=== PATIENT | female | born 1995 | race Caucasian/White ===

== ENCOUNTER 2019-08-30 21:39 | Observation (INO) | payer MEDICAID, SELFPAY ==
--- NOTE | 2019-08-30 20:45 | PC.NURSE ---
Pt transported to OB via wheelchair, report called to OB department.
[2019-08-30 21:08] VITALS: BP 107/69; PULSE 88
[2019-08-30 21:15] VITALS: BP 98/68; PULSE 95
[2019-08-30 21:37] LABS: Basophils Percent Auto 0.2 % (0.2-1.2); Eosinophils Absolute Auto 0.1 K/mm3 (0-0.3); Eosinophils Percent Auto 1.5 % (0-4.4); Hemoglobin 10.6 g/dL (12.0-15.0); Immature Granulocyte Absolute 0.04 K/mm3 (0.00-0.031); Immature Granulocyte Percent A 0.4 % (0-0.5); Lymphocytes Percent Auto 12.7 % (18.3-44.2); Mean Corpuscular HGB Conc 33.1 g/dl (32-36); Mean Corpuscular Hemoglobin 29.5 pg (26-34); Mean Corpuscular Volume 89.1 fl (80-100); Monocytes Absolute Auto 0.5 K/mm3 (0.1-0.6); Monocytes Percent Auto 5.2 % (2.6-8.5); Neutrophils Absolute Auto 7.6 K/mm3 (1.3-6.7); Platelet Count Result 164 k/mm3 (150-375); Red Blood Count 3.59 M/mm3 (4.2-5.4); Red Cell Distribution Width 14.1 % (11.5-14.5); White Blood Count 9.5 K/mm3 (4.5-10.0)
--- NOTE | 2019-08-30 21:41 | OBADM ---
This patient, Anette Camargo, admitted to the OB room [facility] for observation. Patient/family oriented to hospital policies and general routines including ID bracelet, bed and alarms, visiting hours, pain management, procedures, bathroom and other care routines, personal items, smoking policy, room service/diet, and visiting hours. Patient/Family are encouraged to report perceived risks to care and to ask questions if they do not understand what they are told or what they should do.
[2019-08-30 22:28] LABS: HIV 1/2 Ab P24 Ag Result Negative (Negative)
[2019-08-30 22:49] LABS: Hepatitis B Surface Antigen Negative (Negative); Rubella IgG Antibody 26.8 IU/ML
[2019-08-31 09:48] LABS: Rapid Plasma Reagin Non-Reactive (NonReactive)
--- NOTE | 2019-09-01 13:28 | P.PNOB_ITS ---
OB - Triage/Final Diagnosis Visit Information Reason for evaluation: threatened labor Evaluation Laboratory results: Laboratory Tests 08/30/19 08/30/19 08/30/19 21:29 21:29 21:29 WBC 9.5 RBC 3.59 L Hgb 10.6 L Hct 32.0 L MCV 89.1 MCH 29.5 MCHC 33.1 RDW 14.1 Plt Count 164 MPV 11.0 H Immature Gran % (Auto) 0.4 Neut % (Auto) 80.0 H Lymph % (Auto) 12.7 L [place] % (Auto) 5.2 Eos % (Auto) 1.5 Baso % (Auto) 0.2 Lymph # (Auto) 1.20 [place] # (Auto) 0.5 Eos # (Auto) 0.1 Baso # (Auto) 0.0 Abs Immat Gran (auto) 0.04 H Absolute Neuts (auto) 7.6 H Absolute Nucleated RBC 0.0 Nucleated RBC % 0.0 RPR Non-reactive Hep Bs Antigen Negative HIV 1&2 Ab/P24 Ag 4thGn Negative Rubella IgG Antibody 26.8 Blood Type Antibody Screen 08/30/19 21:29 WBC RBC Hgb Hct MCV MCH MCHC RDW Plt Count MPV Immature Gran % (Auto) Neut % (Auto) Lymph % (Auto) [place] % (Auto) Eos % (Auto) Baso % (Auto) Lymph # (Auto) [place] # (Auto) Eos # (Auto) Baso # (Auto) Abs Immat Gran (auto) Absolute Neuts (auto) Absolute Nucleated RBC Nucleated RBC % RPR Hep Bs Antigen HIV 1&2 Ab/P24 Ag 4thGn Rubella IgG Antibody Blood Type O Positive Antibody Screen Negative
== END 2019-08-30 21:53 | disposition home or self-care (01) ==
PROVIDERS: Admitting Provider Obstetrics & Gynecology; Visit Provider Obstetrics & Gynecology
DX: O47.02 False labor before 37 completed weeks of gestation, second trimester (principal); Z3A.25 25 weeks gestation of pregnancy
CPT/HCPCS: 36415; 85025; 86592; 86703; 86762; 86850; 86900; 86901; 87340; 99199; G0432

== ENCOUNTER 2020-02-08 12:27 | Emergency (ER) | payer BC, SELFPAY ==
[2020-02-08 12:29] VITALS: BP 101/84; PULSE 88; RESP 20; TEMP 36.7; O2SAT 100
--- NOTE | 2020-02-08 13:16 | ED.ALLEREA ---
HPI - Allergic Reaction General Chief complaint: Allergic Reaction Stated complaint: allergic reaction Time Seen by Provider: 02/08/20 12:36 Source: patient and family History of Present Illness HPI narrative: Woke up this morning with itching rash on the left face, and almost all over the body. Was burning sensation of the feet bilaterally. Patient denies difficulty swallowing or breathing. MD complaint: allergic reaction and hives Known history of allergy to: Yes Related Data Allergies Allergy/AdvReac Type Severity Reaction Status Date / Time Penicillins Allergy Severe Anaphylactic Verified 05/26/19 21:38 Shock Review of Systems Review of Systems: Narrative: CONSTITUTIONAL: Denies fever, chills, or sweats. EYES: Denies visual changes, redness, or discharge. ENT: Denies rhinorrhea, congestion, sore throat, or otalgia. CARDIOVASCULAR: Denies chest pain, palpitations, or edema. RESPIRATORY: Denies cough or dyspnea. GASTROINTESTINAL: Denies abdominal pain, nausea, vomiting, or diarrhea. GENITOURINARY: Denies dysuria or hematuria. SKIN: Denies rash or itching. MUSCULOSKELETAL: Denies back pain, joint pain, or myalgia. NEUROLOGIC: Denies headache, numbness, or weakness. PSYCHIATRIC: Denies anxiety or depression. [facility] Past Medical History Medical History Anemia UTI (urinary tract infection) Wrist fracture Social History Social History Smoking status: Never smoker Exam Narrative: Exam Narrative: General appearance: Well-developed, well-nourished Skin: Normal color, left lower face at the jaw area, redness, swelling and diffuse tenderness. Maculopapular rash all over the body. Head: Normocephalic, nontraumatic Eyes: Clear conjunctiva ENT: Oropharynx normal, ears normal, nose normal Neck: Supple, nontender Chest and respiratory: Airway patent, no respiratory distress, no accessory muscle use Heart: Regular rate/rhythm Abdomen: Soft, nontender, no organomegaly, quiet bowel sounds Vascular: Normal peripheral pulses, normal capillary refill. Musculoskeletal: Normal range of motion, nontender back Neurologic: Alert and oriented ?3, [employer] is normal as tested, no gross motor deficit Course Course Emergency Course: Improving Vital Signs Vital signs: Vital Signs Temperature 36.7 C 02/08/20 12:29 Pulse Rate 88 02/08/20 12:29 Respiratory Rate 20 02/08/20 12:29 Blood Pressure 101/84 02/08/20 12:29 Pulse Oximetry 100 02/08/20 12:29 Temperature 36.7 C 02/08/20 12:29 Pulse Rate 88 02/08/20 12:29 Respiratory Rate 20 02/08/20 12:29 Blood Pressure 101/84 02/08/20 12:29 Pulse Oximetry 100 02/08/20 12:29 MDM - Allergic Reaction MDM Narrative Medical decision making narrative: Insect bite is my concern. Epinephrine, Benadryl, Solu-Medrol ordered. Further plan to follow The localized swelling, redness and tenderness at the left lower face high likely secondary to insect bite. Possible infection Differential Diagnosis Differential diagnosis: Likely allergic reaction Critical Care Time Critical Care Time Critical Care Time: No Discharge Plan Discharge Clinical Impression: Allergic reaction Qualifiers: Encounter type: initial encounter Qualified Code(s): T78.40XA - Allergy, unspecified, initial encounter Patient Disposition: Home, Self-Care Condition: Improved Instructions: General Allergic Reaction (ED) Additional Instructions: Return if symptoms are worsening , call your family physician for appointment, take Tylenol as as needed for aches and pain, continue home medications. Prescripti
[2020-02-08] MEDS: EPINEPHrine HCL INJ 1 MG/ML AMPUL 0.3 MG IM (13:27)
[2020-02-08] MEDS: methylPREDNISolone SOD SUCC 125 MG VIAL (13:28)
[2020-02-08] MEDS: diphenhydrAMINE HCl INJ 50 MG/ML VIAL IV PUSH (13:28)
[2020-02-08 14:16] VITALS: BP 132/70; PULSE 78; RESP 20; O2SAT 99
== END 2020-02-08 14:18 | disposition home or self-care (01) ==
PROVIDERS: Emergency Provider Emergency Medicine
DX: T78.40XA Allergy, unspecified, initial encounter (principal); Z87.440 Personal history of urinary (tract) infections
CPT/HCPCS: 96372; 96374; 99284; J0171; J1200; J2930

== ENCOUNTER 2021-06-02 01:19 | Emergency (ER) | payer BC, SELFPAY ==
--- NOTE | ~2021-06-02 | CT_ITS ---
EXAMINATION: CT abdomen pelvis w con EXAM DATE: 06/02/2021 03:01 INDICATION: R flank and abd pain reproducible. TECHNIQUE: Spiral CT of the abdomen and pelvis was performed following intravenous injection of 100 m L Omnipaque 350. Axial, coronal and sagittal images of the abdomen and pelvis were reviewed. The do se-length product (DLP) for this examination was 800.44 mGy-cm. The exposure was tailored according to patient size (auto mA exposure control), and iterative reconstruction (ASIR) was used as additiona l dose reduction technique. Comparison is made to prior examination from 06/02/2021. FINDINGS: The liver, spleen, adrenal glands and pancreas are unremarkable. Gallbladder is unremarkab le. No biliary obstruction. Portal and splenic veins are patent. Kidneys enhance symmetrically. T here is no hydronephrosis. The uterus is anteverted and morphologically normal. The bladder is un remarkable. There is no retroperitoneal or pelvic lymphadenopathy. The appendix is normal. The stomach and small bowel are unremarkable. There is expected amount of c olonic stool. No free intraperitoneal gas. The heart is normal in size. There are no pericardial or pleural effusions. The lung bases are unremarkable. There are no osteoblastic or osteolytic les ions identified. Mild chronic bilateral sacroiliitis, symmetric sclerosis along the iliac crests at t he sacroiliac joint. IMPRESSION: 1. No acute intra-abdominal findings. Reviewed, dictated and finalized at location A. [employer]
[2021-06-02 01:20] VITALS: BP 123/81; PULSE 81; RESP 18; TEMP 36.5; O2SAT 100
--- NOTE | 2021-06-02 01:53 | ED.ABDPAIN ---
HPI - Abdominal Pain General Chief Complaint: Abdominal Pain Stated Complaint: abd pain Time Seen by Provider: 06/02/21 01:42 Source: patient History of Present Illness HPI narrative: Patient presents with right-sided flank pain. Reports symptoms present for the past several weeks however today she noted right-sided abdominal pain and her pain was more severe so she came to the ER for evaluation. Reports association with nausea. Pain is achy/sharp, constant but waxes and wanes in intensity and is worsened with any sort of body movement her pain does radiate from her back to her abdomen. She denies any urinary symptoms vaginal discharge or fevers. Reports a history of ureteral stones requiring procedural intervention but is unsure if today's symptoms are similar to her prior stones. Related Data Allergies Allergy/AdvReac Type Severity Reaction Status Date / Time Penicillins Allergy Severe Anaphylactic Verified 05/26/19 21:38 Shock Review of Systems Review of Systems: CONSTITUTIONAL: Denies fever, chills, or sweats. EYES: Denies visual changes, redness, or discharge. ENT: Denies rhinorrhea, congestion, sore throat, or otalgia. CARDIOVASCULAR: Denies chest pain, palpitations, or edema. RESPIRATORY: Denies cough or dyspnea. GASTROINTESTINAL: Denies vomiting, or diarrhea. GENITOURINARY: Denies dysuria or hematuria. SKIN: Denies rash or itching. MUSCULOSKELETAL: Denies joint pain, or myalgia. NEUROLOGIC: Denies headache, numbness, dizziness, or weakness. PSYCHIATRIC: Denies anxiety or depression. All systems reviewed & are unremarkable except as noted in HPI and below PMFSH Past Medical History Medical History (Updated 06/02/21 @ 03:54 by Titi Mendez MD) Anemia UTI (urinary tract infection) Wrist fracture Social History Social History Smoking status: Never smoker Exam Narrative: GENERAL: Well-appearing, well-nourished, and in no acute distress. HEAD: Normocephalic, atraumatic. EYES: PERRLA and EOMI. ENT: Nares clear, no rhinorrhea or epistaxis. Mucous membranes moist. NECK: Supple. No masses. No JVD CHEST: Clear to auscultation. No respiratory distress. No wheezes rales or rhonchi HEART: Regular rate and rhythm. No murmur heard. Normal peripheral pulses. ABDOMEN: Moderate tenderness with palpation on the right abdomen negative Collier's soft, nondistended, normal active bowel sounds. EXTREMITIES: Normal range of motion. No edema. SKIN: Warm, dry, no rash. NEURO: No focal deficits. Alert and oriented x3. PSYCH: Normal mood and affect. Course Reevaluation(s) Reevaluation #1: Patient is resting comfortably results and plan reviewed with patient. Patient is comfortable with outpatient plan. Date: 06/02/21 Time: 03:53 Vital Signs Vital signs: Vital Signs Temperature 36.5 C 06/02/21 01:20 Pulse Rate 81 06/02/21 01:20 Respiratory Rate 18 06/02/21 01:20 Blood Pressure 123/81 06/02/21 01:20 Pulse Oximetry 100 06/02/21 01:20 Temperature 36.5 C 06/02/21 01:20 Pulse Rate 74 06/02/21 04:18 Respiratory Rate 18 06/02/21 04:18 Blood Pressure 102/67 06/02/21 04:18 Pulse Oximetry 99 06/02/21 04:18 MDM - Abdominal Pain MDM Narrative Medical decision making narrative: H&P as above, vss, pt looks clinically well, exam minor right-sided abdominal pain, labs clinically unremarkable, img unremarkable for acute process, additional labs/img considered, symptomatic relief available as needed, on reevaluation pt continues to looks clinically well. Symptoms remain of unclear etiology, dns ureteral stone, cholecystitis, pancreatitis, perforation, bowel obstruction appendicitis, pyelonephritis. plan to tx/monitor as op w/ pcm f/u findings/plan discussed with pt, pt agree/comfortable with plan, return precautions given Lab Data Result diagrams: 06/02/21 01:58 06/02/21 01:58 Labs: Lab Results
[2021-06-02] MEDS: ONDANSETRON INJ 4 MG/2 ML VIAL IV PUSH (02:16)
[2021-06-02] MEDS: MORPHINE SULFATE (*CRX) 4 MG/ML INJ IV PUSH (02:16)
[2021-06-02] MEDS: SODIUM CHLORIDE 0.9% IV 1,000 ML 999 ML IV CONT (02:16)
[2021-06-02 02:18] LABS: Basophils Percent Auto 0.3 % (0.2-1.2); Eosinophils Absolute Auto 0.3 K/mm3 (0-0.3); Eosinophils Percent Auto 2.7 % (0-4.4); Hematocrit 38.2 % (37.0-47.0); Hemoglobin 12.8 g/dL (12.0-15.0); Immature Granulocyte Absolute 0.04 K/mm3 (0.00-0.031); Immature Granulocyte Percent A 0.4 % (0-0.5); Lymphocytes Absolute Auto 3.93 K/mm3 (0.9-3.2); Lymphocytes Percent Auto 37.9 % (18.3-44.2); Mean Corpuscular HGB Conc 33.5 g/dl (32-36); Mean Corpuscular Hemoglobin 30.3 pg (26-34); Mean Corpuscular Volume 90.5 fl (80-100); Mean Platelet Volume 10.7 fl (7.4-10.4); Monocytes Absolute Auto 0.6 K/mm3 (0.1-0.6); Monocytes Percent Auto 6.2 % (2.6-8.5); Neutrophils Absolute Auto 5.4 K/mm3 (1.3-6.7); Neutrophils Percent Auto 52.5 % (45.5-73.1); Platelet Count Result 208 k/mm3 (150-375); Red Blood Count 4.22 M/mm3 (4.2-5.4); Red Cell Distribution Width 12.5 % (11.5-14.5); White Blood Count 10.4 K/mm3 (4.5-10.0)
[2021-06-02 02:30] LABS: Alanine Aminotransferase 15 U/L (4-35); Albumin Level 4.4 g/dL (3.5-5.1); Alkaline Phosphatase 90 U/L (38-126); Anion Gap 7 mmol/L (8-16); Aspartate Amino Transferase 22 U/L (14-36); Bilirubin,Total 0.3 mg/dL (0.2-1.3); Blood Urea Nitrogen 16 mg/dL (7-17); Calcium 9.4 mg/dL (8.4-10.2); Carbon Dioxide 26 mmol/L (22-30); Chloride 104 mmol/L (98-107); Estimated CRCL calculation 113 ml/min; Estimated Glomerular Filt Rate > 60; Glucose 102 mg/dL (65-110); Lipase 61 U/L (23-300); Potassium 3.8 mmol/L (3.4-5.0); Sodium 137 mmol/L (137-145)
[2021-06-02 02:34] LABS: Add Urine Microscopic? YES; Appearance Urine Cloudy (Clear); Bacteria Urine Trace /hpf; Bilirubin Urine Negative (Negative); Blood Urine Negative (Negative); Color Urine Yellow (Yellow); Glucose Urine UA Negative (Negative); Ketones Urine Negative (Negative); Leukocyte Esterase Ur Negative LEU/UL (Negative); Mucus Urine Rare /lpf; Nitrate Urine Negative (Negative); Protein Urine Negative (Negative); RBC Urine 0-2 /hpf (0-2); Specific Grav Ur 1.025 (1.001-1.035); Squamous Epithelial Cell Urine Rare /hpf (Few); WBC Urine 0-3 /hpf
[2021-06-02 03:00] VITALS: BP 111/66; PULSE 71; RESP 18; O2SAT 100
[2021-06-02] MEDS: KETOROLAC 15 MG/ML VIAL (*BKC) IV PUSH (03:48)
[2021-06-02 04:18] VITALS: BP 102/67; PULSE 74; RESP 18; O2SAT 99
== END 2021-06-02 04:22 | disposition home or self-care (01) ==
PROVIDERS: Emergency Provider Emergency Medicine
DX: R10.11 Right upper quadrant pain (principal); Z86.2 Personal history of diseases of the blood and blood-forming organs and certain disorders involving the immune mechanism; Z87.440 Personal history of urinary (tract) infections
CPT/HCPCS: 36415; 74177; 80053; 81001; 81025; 83690; 85025; 96361; 96365; 96375; 99284; J0131; J1885; J2270; J2405; J7030; Q9967

== ENCOUNTER 2021-06-17 23:23 | Emergency (ER) | payer BC, SELFPAY ==
[2021-06-17 23:28] VITALS: BP 125/72; PULSE 86; RESP 20; TEMP 36.3; O2SAT 100
--- NOTE | 2021-06-18 02:52 | PC.NURSE ---
Went into pts room, pt very upset that no one has been in and that the Dr has not been in yet, I explained to pt how emergency room works with critical pts,. PT was very upset and was not happy with the conversation.
--- NOTE | 2021-06-18 03:46 | ED.SKABFB ---
HPI - Skin/Abscess/Foreign Bdy General Chief complaint: Skin/Abscess/Foreign Body Stated complaint: left inner thigh abscess/spider bite Time Seen by Provider: 06/18/21 03:30 Source: patient History of Present Illness HPI narrative: Patient presents with concern for insect bite. Was bit yesterday has had increasing pain and redness to the area she was concerned about infection so she came to the ER for evaluation. She reports she is seen a pustule form thought maybe is an open wound here and popped it. Scant amount of pus came out. She denies any fevers, nausea, vomiting, diarrhea Related Data Allergies Allergy/AdvReac Type Severity Reaction Status Date / Time Penicillins Allergy Severe Anaphylactic Verified 06/18/21 01:19 Shock Review of Systems Review of Systems: CONSTITUTIONAL: Denies fever, chills, or sweats. EYES: Denies visual changes, redness, or discharge. ENT: Denies rhinorrhea, congestion, sore throat, or otalgia. CARDIOVASCULAR: Denies chest pain, palpitations, or edema. RESPIRATORY: Denies cough or dyspnea. GASTROINTESTINAL: Denies abdominal pain, nausea, vomiting, or diarrhea. GENITOURINARY: Denies dysuria or hematuria. SKIN: Denies rash or itching. MUSCULOSKELETAL: Denies back pain, joint pain, or myalgia. NEUROLOGIC: Denies headache, numbness, dizziness, or weakness. PSYCHIATRIC: Denies anxiety or depression. All systems reviewed & are unremarkable except as noted in HPI and below PMFSH Past Medical History Medical History (Updated 06/18/21 @ 03:52 by Titi Mendez MD) Anemia UTI (urinary tract infection) Wrist fracture Social History Social History Smoking status: Never smoker Exam Narrative: GENERAL: Well-appearing, well-nourished, and in no acute distress. HEAD: Normocephalic, atraumatic. EYES: PERRLA and EOMI. ENT: Nares clear, no rhinorrhea or epistaxis. Mucous membranes moist. NECK: Supple. No masses. No JVD EXTREMITIES: Normal range of motion. No edema. 2 x 4 area of erythema and edema with mild tenderness to palpation no focal fluctuance no draining wounds SKIN: Warm, dry, no rash. NEURO: No focal deficits. Alert and oriented x3. PSYCH: Normal mood and affect. Course Vital Signs Vital signs: Vital Signs Temperature 36.3 C L 06/17/21 23:28 Pulse Rate 86 06/17/21 23:28 Respiratory Rate 20 06/17/21 23:28 Blood Pressure 125/72 06/17/21 23:28 Pulse Oximetry 100 06/17/21 23:28 Temperature 36.3 C L 06/17/21 23:28 Pulse Rate 86 06/17/21 23:28 Respiratory Rate 20 06/17/21 23:28 Blood Pressure 125/72 06/17/21 23:28 Pulse Oximetry 100 06/17/21 23:28 MDM - Skin/Abscess/Foreign Bdy MDM Narrative Medical decision making narrative: H&P as above, vss, pt looks clinically well, exam moderate size area of erythema and edema with mild tenderness, bedside ultrasound without focal fluid collection additional labs/img considered, symptomatic relief available as needed, on reevaluation pt continues to looks clinically well. Suspect cellulitis, dns abscess, necrotizing soft tissue infection, severe sepsis. plan to tx/monitor as op w/ pcm f/u findings/plan discussed with pt, pt agree/comfortable with plan, return precautions given Discharge Plan Discharge Clinical Impression: Cellulitis Qualifiers: Site of cellulitis: extremity Site of cellulitis of extremity: lower extremity Laterality: left Qualified Code(s): L03.116 - Cellulitis of left lower limb Patient Disposition: Home, Self-Care Condition: Improved Instructions: Antibiotic Form, Cellulitis (ED) Additional Instructions: Please return if your symptoms worsen or fail to improve. If you develop a fever, can not eat/drink anything or if you have any other concerns. Prescriptions: New sulfamethoxazole-trimethoprim [Bactrim DS] 800-160 mg tablet 1 tablet PO Q12H 5 Days Qty: 10 RF: 0 No Action clindamycin HCl 300 mg capsule
[2021-06-18] MEDS: KETOROLAC 30 MG/ML VIAL (*BKC) IM (04:13)
== END 2021-06-18 04:18 | disposition home or self-care (01) ==
PROVIDERS: Emergency Provider Emergency Medicine
DX: L03.116 Cellulitis of left lower limb (principal)
CPT/HCPCS: 96372; 99283; J1885

== ENCOUNTER 2021-07-05 12:15 | Emergency (ER) | payer BC, SELFPAY ==
[2021-07-05 12:24] VITALS: BP 106/67; PULSE 80; RESP 16; TEMP 36.4; O2SAT 100
--- NOTE | 2021-07-05 13:00 | ED.URI ---
HPI - URI/Sore Throat General Chief Complaint: Upper Respiratory Infection Stated Complaint: sore throat Source: patient and RN notes reviewed History of Present Illness HPI Narrative: This is a 25-year-old female that presented to urgent care with a sore throat and congested ears that she has had for 2 days. Patient did not do anything at home to relieve her symptoms. She does not any other associated symptoms. The patient denies SOB, CP, palpitation, extremity numbness, lightheadedness, dizziness, constipation, diarrhea, chills, or fever. Related Data Allergies Allergy/AdvReac Type Severity Reaction Status Date / Time Penicillins Allergy Severe Anaphylactic Verified 07/05/21 12:44 Shock Review of Systems Review of Systems: A 14 organ system Review of Systems was performed and pertinent positives included in the HPI, otherwise remaining ROS is negative. [facility] Past Medical History Medical History (Updated 07/05/21 @ 13:00 by JESSIE Cunha) Anemia UTI (urinary tract infection) Wrist fracture Social History Social History Smoking status: Never smoker Exam Narrative: GENERAL: This is a well-nourished, well-developed patient, in no apparent distress. HEAD: normocephalic, atraumatic. EYES: PERRL. Sclera clear/white. Vision is grossly intact. EARS: External ears normal, auditory canals clear and without drainage, TMs normal without perforation. Hearing grossly intact. NOSE: External nose normal with no obvious nasal discharge, nares without redness, no rhinorrhea. THROAT: Mucous membranes moist, posterior pharynx edema with erythema, swollen tonsils NECK: Neck supple, non-tender without lymphadenopathy, masses or thyromegaly. CARDIOVASCULAR: Regular rate and rhythm without murmurs, gallops, or rubs. RESPIRATORY: Clear to auscultation. Breath sounds equal bilaterally. No wheezes, rales, or rhonchi. GASTROINTESTINAL: Abdomen soft, non-tender, nondistended. Bowel sounds are active. No hepato-splenomegaly, or palpable masses. No guarding. SKIN: warm, intact with no suspicious lesions or rash, good texture and turgor. NEURO: awake, alert, and oriented to person, place and time. There were no obvious focal neurologic abnormalities. Steady gait EXTREMITIES: Normal range of motion. No edema. No calf tenderness. Negative Homans sign bilaterally. BACK: Nontender without deformity or crepitance. No flank tenderness. Course Course Emergency Course: Patient will be given azithromycin 250 mg daily x10 days treated for strep Vital Signs Vital signs: Vital Signs Temperature 97.6 F 07/05/21 12:24 Pulse Rate 80 07/05/21 12:24 Respiratory Rate 16 07/05/21 12:24 Blood Pressure 106/67 07/05/21 12:24 Pulse Oximetry 100 07/05/21 12:24 Temperature 97.6 F 07/05/21 12:24 Pulse Rate 80 07/05/21 12:24 Respiratory Rate 16 07/05/21 12:24 Blood Pressure 106/67 07/05/21 12:24 Pulse Oximetry 100 07/05/21 12:24 MDM - URI/Sore Throat Differential Diagnosis Differential diagnosis: Likely upper respiratory infection, bronchitis, pharyngitis and other (Strep) Lab Data Attestation: I reviewed the patient's lab results. Lab results narrative: Positive for strep Labs: Strep Screen Positive Group A Strep *(Reference Range: Negative)* Discharge Plan Discharge Clinical Impression: Strep pharyngitis Patient Disposition: Home, Self-Care Condition: Stable Instructions: Antibiotic Form, Strep Throat (ED) Additional Instructions: Take medications as prescribed. Follow up with Provider within 1-2 weeks if no improvement When do I need to call the doctor? Signs of infection. These include a fever of 100.4?F (38?C) or higher, chills, or wound that will not heal. Signs of wound infection. These include swelling, redness, warmth around the wound; too much pain when touched; yellow
== END 2021-07-05 13:10 | disposition home or self-care (01) ==
PROVIDERS: Emergency Provider Nurse Practitioner
DX: J02.0 Streptococcal pharyngitis (principal)
CPT/HCPCS: 87880; 99213; G0463

== ENCOUNTER 2022-05-08 22:40 | Emergency (ER) | payer BC, SELFPAY ==
--- NOTE | ~2022-05-08 | XR_ITS ---
EXAMINATION: XR ankle LT min 3V DATE: 05/08/2022 23:30 INDICATION: Posterior left ankle pain TECHNIQUE: Anteroposterior, oblique, mortise, and lateral views of the left ankle were obtained. COMPARISON: None. FINDINGS: Alignment is normal. No fracture. Joint spaces are well maintained. No ankle joint effusion. The so ft tissues are unremarkable. IMPRESSION: 1. . Negative left ankle radiographs. Reviewed, dictated and finalized at location A.
[2022-05-08 22:43] VITALS: BP 126/68; PULSE 91; RESP 14; TEMP 36.8; O2SAT 100
--- NOTE | 2022-05-08 23:19 | ED.LOWEXIN ---
HPI - Extremity Injury (Lower) General Chief Complaint: Extremity Injury, Lower Stated Complaint: foot pain Time Seen by Provider: 05/08/22 22:59 Source: patient Mode of arrival: ambulatory Limitations: no limitations History of Present Illness HPI Narrative: This is a 26 year old female that presents to the ER for left heel pain ongoing over the last couple of days. No recent injury or trauma. The pain is worse with weightbearing and relieved with rest. Denies decreased range of motion or numbness. Related Data Allergies Allergy/AdvReac Type Severity Reaction Status Date / Time Penicillins Allergy Severe Anaphylactic Verified 05/08/22 22:59 Shock Review of Systems Review of Systems: CONSTITUTIONAL: Denies fever MUSCULOSKELETAL: Reports joint pain, and myalgia. NEUROLOGIC: Denies numbness All systems reviewed & are unremarkable except as noted in HPI and below PMFSH Past Medical History Medical History (Updated 05/09/22 @ 00:34 by Nhung Guidry PA-C) Anemia UTI (urinary tract infection) Wrist fracture Social History Social History Smoking status: Never smoker Exam Narrative: GENERAL: Well-appearing, well-nourished, and in no acute distress. HEAD: Normocephalic, atraumatic. EYES: EOMI. EXTREMITIES: Normal range of motion. No edema, erythema or obvious deformity. Normal DP pulse. Normal sensation. Achilles tendon is intact SKIN: Warm, dry, no rash. NEURO: No focal deficits. Alert and oriented x3. PSYCH: Normal mood and affect Course Vital Signs Vital signs: Vital Signs Temperature 98.2 F 05/08/22 22:43 Pulse Rate 91 05/08/22 22:43 Respiratory Rate 14 05/08/22 22:43 Blood Pressure 126/68 05/08/22 22:43 Pulse Oximetry 100 05/08/22 22:43 Oxygen Delivery Room Air 05/08/22 22:43 Temperature 98.2 F 05/08/22 22:43 Pulse Rate 91 05/08/22 22:43 Respiratory Rate 14 05/08/22 22:43 Blood Pressure 126/68 05/08/22 22:43 Pulse Oximetry 100 05/08/22 22:43 Oxygen Delivery Room Air 05/08/22 22:59 MDM - Extremity Injury (Lower) MDM Narrative Medical decision making narrative: Patient presents emergency department for left foot pain ongoing over the last couple of days. No recent injury or trauma. Patient's pain is centered around the Achilles tendon insertion. The Achilles tendon itself is intact. Left ankle x-ray without acute osseous abnormalities. There is no erythema, edema or warmth of the foot. She is neurovascularly intact. Instructed to rest, ice and take [id number] pain medication as needed. She is to follow-up with primary care doctor. She was given warnings to return to the ER Imaging Data My impression: Left ankle x-ray: No acute osseous abnormalities Critical Care Time Critical Care Time Critical Care Time: No Discharge Plan Discharge Clinical Impression: Acute pain of left foot Patient Disposition: Home, Self-Care Condition: Stable Instructions: Achilles Tendinitis (ED) Additional Instructions: Return to the emergency department if you experience fever, redness and swelling of your leg, numbness, or any other symptoms that are concerning to you Wear KAMALJIT wrap and use crutches. Ice and elevate extremity. Pain medication as needed and directed. Follow up with primary care doctor for further care. Prescriptions: No Action azithromycin 250 mg tablet 250 mg PO DAILY 10 Days Qty: 10 0RF Follow-up/Referrals: UNKNOWN,DOCTOR [Non-Staff] - Dina Euceda DO [Physician] - 3 Days Stand Alone Forms: Work/School Release IP
[2022-05-08] MEDS: ACETAMINOPHEN 500 MG TABLET 1000 MG PO (23:58)
[2022-05-08] MEDS: KETOROLAC 30 MG/ML VIAL (*BKC) IM (23:58)
== END 2022-05-09 00:44 | disposition home or self-care (01) ==
PROVIDERS: Emergency Provider Emergency Medicine
DX: M79.672 Pain in left foot (principal)
CPT/HCPCS: 73610; 96372; 99283; A9270; J1885

== ENCOUNTER 2022-05-29 23:32 | Emergency (ER) | payer BC, SELFPAY ==
--- NOTE | ~2022-05-29 | CT_ITS ---
EXAMINATION: CT brain wo con DATE: 05/30/2022 00:56 INDICATION: Head injury. Headache. TECHNIQUE: Computed tomography (CT) of the head was performed without intravenous contrast. The mA wa s adjusted according to patient size. Iterative reconstruction technique was employed. The dose-lengt h product was 529.67 mGy-cm. COMPARISON: Head CT 05/24/2007 FINDINGS: There is no intracranial hemorrhage, acute infarction, or abnormal intracranial mass lesion . The ventricles are normal in size. There are no pathologically enlarged lymph nodes. Partially visu alized is a density at inferior rim of left orbit that may be a screw or foreign body. There is an ol d blowout fracture of floor of left orbit. There is mild mucosal thickening in the paranasal sinuses. There is a small right mastoid effusion. IMPRESSION: 1. Normal brain. Reviewed, dictated and finalized at location A. GER PROPOSAL IMPRESSION: 1. Normal brain.
[2022-05-29 23:42] VITALS: BP 120/58; PULSE 98; RESP 18; TEMP 36.7; O2SAT 100
[2022-05-30] MEDS: KETOROLAC 30 MG/ML VIAL (*BKC) IV PUSH (01:24)
[2022-05-30] MEDS: SODIUM CHLORIDE 0.9% IV 1,000 ML 999 ML IV CONT (01:24)
[2022-05-30] MEDS: METOCLOPRAMIDE HCL INJ 10 MG/2 ML VIAL IV PUSH (01:24)
[2022-05-30] MEDS: diphenhydrAMINE HCl INJ 50 MG/ML VIAL IV PUSH (01:25)
--- NOTE | 2022-05-30 01:25 | ED.GENADULT ---
HPI - General Adult General Chief complaint: Head Injury Stated complaint: hit head, blurry vision Time Seen by Provider: 05/30/22 00:20 History of Present Illness HPI narrative: Patient is a 26-year-old female who presents the emergency department with chief complaint of headache. Patient reports that yesterday she fell struck her head while she was having a few drinks. The patient states that she has a headache on the left side of her head reports she has noticed that her vision is been a little blurry at times but reports she still able to read and unable to see normally. Patient states that the left forehead area is tender to the touch and reports that she has prior history of a head injury with a facial fracture that required surgical repair. Patient reports that her last tetanus was in 2018 Related Data Allergies Allergy/AdvReac Type Severity Reaction Status Date / Time Penicillins Allergy Severe Anaphylactic Verified 05/29/22 23:47 Shock Review of Systems Review of Systems: A 10 system review of systems was completed on the patient and is negative except for what is stated in the HPI. Nursing and ancillary documentation was reviewed. [facility] Past Medical History Medical History (Updated 05/30/22 @ 03:34 by Reno White MD) Anemia UTI (urinary tract infection) Wrist fracture Social History Social History Smoking status: Never smoker Exam Narrative: GENERAL: Well-appearing, well-nourished, and in no acute distress. HEAD: Normocephalic, small abrasion present on the scalp. EYES: PERRLA and EOMI. ENT: Nares clear, no rhinorrhea or epistaxis. Mucous membranes moist. NECK: Supple. CHEST: Clear to auscultation. No respiratory distress. HEART: Regular rate and rhythm. No murmur heard. Normal peripheral pulses. ABDOMEN: Soft, nontender, nondistended, normal active bowel sounds. EXTREMITIES: Normal range of motion. No edema. SKIN: Warm, dry, no rash. NEURO: No focal deficits. Alert and oriented x3. PSYCH: Normal mood and affect. Course Course Emergency Course: CT head showed no evidence of hemorrhage. 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 facial injury Vital Signs Vital signs: Vital Signs Temperature 36.7 C 05/29/22 23:42 Pulse Rate 98 05/29/22 23:42 Respiratory Rate 18 05/29/22 23:42 Blood Pressure 120/58 L 05/29/22 23:42 Pulse Oximetry 100 05/29/22 23:42 Oxygen Delivery Room Air 05/29/22 23:42 Temperature 36.7 C 05/29/22 23:42 Pulse Rate 98 05/29/22 23:42 Respiratory Rate 18 05/29/22 23:42 Blood Pressure 120/58 L 05/29/22 23:42 Pulse Oximetry 100 05/29/22 23:42 Oxygen Delivery Room Air 05/29/22 23:42 Medical Decision Making Vital Signs Vital Signs: Vital Signs Temperature 36.7 C 05/29/22 23:42 Pulse Rate 98 05/29/22 23:42 Respiratory Rate 18 05/29/22 23:42 Blood Pressure 120/58 L 05/29/22 23:42 Pulse Oximetry 100 05/29/22 23:42 Oxygen Delivery Room Air 05/29/22 23:42 Temperature 36.7 C 05/29/22 23:42 Pulse Rate 98 05/29/22 23:42 Respiratory Rate 18 05/29/22 23:42 Blood Pressure 120/58 L 05/29/22 23:42 Pulse Oximetry 100 05/29/22 23:42 Oxygen Delivery Room Air 05/29/22 23:42 Lab Data Labs: Lab Results 05/30/22 Range/Units 01:46 Urine Color Yellow (Yellow) Urine Appearance Cloudy H (Clear) Urine pH 6.0 (5.0-9.0) Ur Specific [place] 1.025 (1.001-1.035) Urine Protein Negative (Negative) mg/dL Urine Glucose (UA) Negative (Negative) mg/dL Urine Ketones Negative (Negative) mg/dL Ur Blood (Man) Trace-intact (Negative) Urine Nitrate Negative (Negative) Urine Bilirubin Negative (Negative) Urine Urobilinogen 1.0 (<2.0) mg/
[2022-05-30 01:52] LABS: Appearance Urine Cloudy (Clear); Bilirubin Urine Negative (Negative); Blood Urine Trace-intact (Negative); Color Urine Yellow (Yellow); Glucose Urine UA Negative (Negative); Ketones Urine Negative (Negative); Leukocyte Esterase Ur Trace LEU/UL (Negative); Nitrate Urine Negative (Negative); Protein Urine Negative (Negative); Specific Grav Ur 1.025 (1.001-1.035)
[2022-05-30 01:57] LABS: Bacteria Urine 2+ /hpf; Mucus Urine Rare /lpf; Squamous Epithelial Cell Urine Many /hpf (Few)
[2022-05-30 01:59] LABS: Add Urine Microscopic? YES
[2022-05-30 03:38] VITALS: O2SAT 98
[2022-05-30] MEDS: SULFAMETHOXAZOLE/TRIMETHOPRIM 800/160 MG DS TABLET 1 TAB PO (03:47)
[2022-05-30 04:43] VITALS: BP 140/88; RESP 18; O2SAT 98
--- NOTE | 2022-06-05 19:12 | PC.NURSE ---
fluids stopped 1 hour after started
== END 2022-05-30 04:46 | disposition home or self-care (01) ==
PROVIDERS: Emergency Provider Emergency Medicine
DX: S09.90XA Unspecified injury of head, initial encounter (principal); N39.0 Urinary tract infection, site not specified; Z86.2 Personal history of diseases of the blood and blood-forming organs and certain disorders involving the immune mechanism; W19.XXXA Unspecified fall, initial encounter
CPT/HCPCS: 70450; 81001; 81025; 87086; 87088; 96361; 96374; 96375; 99284; A9270; J1200; J1885; J2765; J7030

== ENCOUNTER 2022-08-29 22:52 | Emergency (ER) | payer BC, SELFPAY ==
[2022-08-29 23:05] VITALS: BP 116/63; PULSE 103; RESP 18; TEMP 36.6; O2SAT 97
[2022-08-30 03:09] VITALS: BP 107/73; PULSE 90; RESP 18; O2SAT 100
[2022-08-30 03:39] LABS: Alanine Aminotransferase 17 U/L (6-35); Albumin Level 4.3 g/dL (3.5-5.1); Alkaline Phosphatase 98 U/L (38-126); Anion Gap 7 mmol/L (8-16); Aspartate Amino Transferase 21 U/L (14-36); Bilirubin,Total 0.5 mg/dL (0.2-1.3); Blood Urea Nitrogen 12 mg/dL (7-17); Calcium 8.4 mg/dL (8.4-10.2); Carbon Dioxide 24 mmol/L (22-30); Chloride 110 mmol/L (98-107); Estimated CRCL calculation 149 ml/min; Estimated Glomerular Filt Rate > 60; Glucose 107 mg/dL (65-110); Potassium 3.8 mmol/L (3.4-5.0); Sodium 141 mmol/L (137-145)
--- NOTE | 2022-08-30 04:18 | PC.NURSE ---
patient refusing straight cath at this time. encouraged to provide urine sample as soon as possible. patient agreeable to plan at this time.
[2022-08-30 04:42] LABS: Basophils Percent Auto 0.4 % (0.2-1.2); Eosinophils Absolute Auto 0.4 K/mm3 (0-0.3); Eosinophils Percent Auto 4.1 % (0-4.4); Hematocrit 37.5 % (37.0-47.0); Hemoglobin 12.4 g/dL (12.0-15.0); Immature Granulocyte Absolute 0.04 K/mm3 (0.00-0.031); Immature Granulocyte Percent A 0.4 % (0-0.5); Lymphocytes Absolute Auto 3.08 K/mm3 (0.9-3.2); Lymphocytes Percent Auto 31.1 % (18.3-44.2); Mean Corpuscular HGB Conc 33.1 g/dl (32-36); Mean Corpuscular Volume 93.8 fl (80-100); Mean Platelet Volume 10.4 fl (7.4-10.4); Monocytes Absolute Auto 0.8 K/mm3 (0.1-0.6); Monocytes Percent Auto 7.6 % (2.6-8.5); Neutrophils Absolute Auto 5.6 K/mm3 (1.3-6.7); Neutrophils Percent Auto 56.4 % (45.5-73.1); Platelet Count Result 233 k/mm3 (150-375); Red Cell Distribution Width 12.3 % (11.5-14.5); White Blood Count 9.9 K/mm3 (4.5-10.0)
[2022-08-30 05:17] LABS: Appearance Urine Clear (Clear); Bilirubin Urine Negative (Negative); Blood Urine 1+ (Negative); Color Urine Yellow (Yellow); Glucose Urine UA Negative (Negative); Ketones Urine Trace mg/dL (Negative); Leukocyte Esterase Ur Negative LEU/UL (Negative); Nitrate Urine Negative (Negative); Protein Urine Negative (Negative); Specific Grav Ur 1.025 (1.001-1.035)
--- NOTE | 2022-08-30 05:29 | ED.GENADULT ---
HPI - General Adult General Chief complaint: Unspecified Stated complaint: sore throat x 2 days Time Seen by Provider: 08/30/22 04:18 History of Present Illness HPI narrative: This is a 26-year-old female presenting ED with 2 days of sore throat. Associated symptoms include some nasal congestion and ear fullness.Patient has 3 sick children at home who have similar symptoms. They were diagnosed with a viral illness. Patient denies fever, chills, nausea vomiting or diarrhea. Related Data Allergies Allergy/AdvReac Type Severity Reaction Status Date / Time Penicillins Allergy Severe Anaphylactic Verified 08/30/22 04:16 Shock [facility] Past Medical History Medical History (Updated 08/30/22 @ 07:05 by Rohan Fritz MD) Anemia UTI (urinary tract infection) Wrist fracture Social History Social History Smoking status: Never smoker Exam Narrative: APPEARANCE: No apparent distress. Head: Mild erythema of the posterior oropharynx, no exudates, anterior cervical lymphadenopathy EYES: EOMI, NOSE: Atraumatic NECK: Trachea midline RESPIRATORY: No increased rate of breathing, clear to auscultation bilaterally CARDIOVASCULAR: RRR, slightly tachycardic ABDOMINAL: Non-distended, nontender no guarding rebound MUSCULOSKELETAl: No obvious deformities NEURO: Alert. Moving 4/4 extremities SKIN:: Warm, dry. Normal color PSYCHIATRIC: Normal affect Course Vital Signs Vital signs: Vital Signs Temperature 97.9 F 08/29/22 23:05 Pulse Rate 103 H 08/29/22 23:05 Respiratory Rate 18 08/29/22 23:05 Blood Pressure 116/63 08/29/22 23:05 Pulse Oximetry 97 08/29/22 23:05 Temperature 97.9 F 08/29/22 23:05 Pulse Rate 90 08/30/22 03:09 Respiratory Rate 18 08/30/22 03:09 Blood Pressure 107/73 08/30/22 03:09 Pulse Oximetry 100 08/30/22 03:09 Medical Decision Making [facility] Narrative Medical decision making narrative: -Presentation: 26-year-old female presenting with 2 days of sore throat and URI symptoms. Patient has 6 children at home. -DDX includes but is not limited to: Strep throat, viral pharyngitis, viral illness -Co-morbidities complicating care: none -Social determinants of health: patient lives at home with several children. 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 Strep was negative. Urinalysis was not indicative of infection. Lab work was ordered per nursing protocols within acceptable limits. Dx tests considered but not ordered: -Procedures: -Interventions: 10 mg dexamethasone,1000 mg Tylenol, 800 mg Motrin -Shared decision making / Disposition: bowels well as her negative, patient does not have strep throat. Likely has a nonspecific viral illness. Patient will be discharged with course of Motrin and Tylenol. She is instructed follow-up with her primary care physician. -RX Motrin, Tylenol Vital Signs Vital Signs: Vital Signs Temperature 97.9 F 08/29/22 23:05 Pulse Rate 103 H 08/29/22 23:05 Respiratory Rate 18 08/29/22 23:05 Blood Pressure 116/63 08/29/22 23:05 Pulse Oximetry 97 08/29/22 23:05 Temperature 97.9 F 08/29/22 23:05 Pulse Rate 90 08/30/22 03:09 Respiratory Rate 18 08/30/22 03:09 Blood Pressure 107/73 08/30/22 03:09 Pulse Oximetry 100 08/30/22 03:09 Lab Data 08/30/22 04:34 08/30/22 03:15 Labs: Lab Results 08/30/22 08/30/22 08/30/22 Range/Units 03:15 04:34 05:03 WBC 9.9 (4.5-10.0) K/mm3 RBC 4.00 L (4.2-5.4) M/mm3 Hgb 12.4 (12.0-15.0) g/dL Hct 37.5 (37.0-47.0) % MCV 93.8 (80-100) fl MCH 31.0 (26-34) pg MCHC 33.1 (32-36) g/dl RDW 12.3 (11.5-14.5) % Plt Count 233 (150-375) k/mm3 MPV 10.4 (7
[2022-08-30 05:35] LABS: Mucus Urine Few /lpf; Squamous Epithelial Cell Urine Few /hpf (Few)
[2022-08-30 05:37] LABS: Add Urine Microscopic? YES
[2022-08-30] MEDS: IBUPROFEN 400 MG TABLET 800 MG PO (05:50)
[2022-08-30] MEDS: ACETAMINOPHEN 500 MG TABLET 1000 MG PO (05:51)
[2022-08-30 06:37] LABS: Strep Group A RT-PCR NOT DETECTED (Negative)
[2022-08-30 06:44] LABS: Influenza A QL RT-PCR Negative (Negative); Influenza B QL RT-PCR Negative (Negative); RSV RNA, RT-PCR Negative (Negative); SARS-CoV-2 RNA PCR Negative
[2022-08-30 07:03] VITALS: BP 122/76; PULSE 72; O2SAT 100
[2022-08-30 07:12] VITALS: BP 97/70; PULSE 77; RESP 15; TEMP 36.8; O2SAT 97
== END 2022-08-30 07:15 | disposition home or self-care (01) ==
PROVIDERS: Emergency Provider Emergency Medicine
DX: J02.9 Acute pharyngitis, unspecified (principal); Z20.822 Contact with and (suspected) exposure to COVID-19; Z87.440 Personal history of urinary (tract) infections
CPT/HCPCS: 36415; 80053; 81001; 81025; 85025; 87637; 87651; 96374; 99284; A9270; J1100

== ENCOUNTER 2022-09-21 19:27 | Emergency (ER) | payer BC, SELFPAY ==
[2022-09-21 19:34] VITALS: BP 126/95; PULSE 85; RESP 16; TEMP 36.6; O2SAT 100
[2022-09-21 20:01] LABS: Appearance Urine Cloudy (Clear); Bacteria Urine 1+ /hpf; Bilirubin Urine Negative (Negative); Blood Urine 3+ (Negative); Color Urine Yellow (Yellow); Glucose Urine UA Negative (Negative); Ketones Urine Negative (Negative); Leukocyte Esterase Ur 3+ LEU/UL (Negative); Nitrate Urine Negative (Negative); Non Pathogenic Casts 0-2; Protein Urine Negative (Negative); RBC Urine 0-2 /hpf (0-2); Specific Grav Ur 1.008 (1.001-1.035); Squamous Epithelial Cell Urine None seen /hpf (Few); WBC Urine >100 /hpf; pH Urine 7.5 (5.0-9.0)
[2022-09-21 20:05] LABS: Add Urine Microscopic? YES
--- NOTE | 2022-09-21 20:07 | PC.NURSE ---
Dr. Vazquez at bedside to assess pt.
--- NOTE | 2022-09-21 20:10 | ED.FEMALEGU ---
HPI - Female Genitourinary General Chief complaint: Urogenital-Female Stated complaint: UTI symptoms Time Seen by Provider: 09/21/22 19:54 Source: RN notes reviewed History of Present Illness HPI Narrative: Patient presents emergency department from home for dysuria. Patient states symptoms began approximate 5 days ago. States she has been having pain with urination as well as urinary frequency. States she has been drinking large amounts of water to try to help she also states she has been having some mild cramping in the lower abdomen and suprapubic region. She denies any fevers or chills, nausea vomiting diarrhea or any other signs Related Data Allergies Allergy/AdvReac Type Severity Reaction Status Date / Time Penicillins Allergy Severe Anaphylactic Verified 08/30/22 04:16 Shock Review of Systems Review of Systems: Gen.: Denies fevers or chills Respiratory: Denies shortness of breath CV: Denies chest pain GI: Reports suprapubic cramping, denies nausea, emesis see HPI Musculoskeletal: Denies back pain or muscle pain Neuro: Denies numbness, tingling, weakness or focal weakness Skin: Denies rash Except as documented, all other systems reviewed and negative [facility] Past Medical History Medical History (Updated 09/21/22 @ 20:14 by Morgan Vazquez DO) Anemia UTI (urinary tract infection) Wrist fracture Social History Social History Smoking status: Never smoker Exam Narrative: APPEARANCE: No acute distress, nontoxic, resting in bed EYES: EOMI HEENT: Normocephalic, atraumatic, OMM RESPIRATORY: No respiratory distress Clear to auscultation bilaterally with no rhonchi wheezing or rales. CARDIOVASCULAR: Regular rate and rhythm without murmurs rubs or gallops. ABDOMINAL: Soft, nontender, nondistended, no rebound or guarding MUSCULOSKELETAl: Moves all extremities. NEURO: Awake and alert. Following commands, speech normal, no focal deficits SKIN:: Warm, dry. No rashes lesions or abrasions PSYCHIATRIC: Normal affect/mood, Course Course Emergency Course: Discussed with patient results of workup and diagnosis. Discussed need for follow-up with primary care, proper use of medication, and reasons to return to the emergency department. Patient understands and agrees to current treatment plan Vital Signs Vital signs: Vital Signs Temperature 97.8 F 09/21/22 19:34 Pulse Rate 85 09/21/22 19:34 Respiratory Rate 16 09/21/22 19:34 Blood Pressure 126/95 H 09/21/22 19:34 Pulse Oximetry 100 09/21/22 19:34 Oxygen Delivery Room Air 09/21/22 19:34 Temperature 97.8 F 09/21/22 19:34 Pulse Rate 85 09/21/22 19:34 Respiratory Rate 16 09/21/22 19:34 Blood Pressure 126/95 H 09/21/22 19:34 Pulse Oximetry 100 09/21/22 19:34 Oxygen Delivery Room Air 09/21/22 19:34 MDM - Female Genitourinary MDM Narrative Medical decision making narrative: Patient presents with dysuria for the past 5 days. No fevers. UA is consistent with UTI discussed with patient will start on Macrobid and discharged follow-up as an outpatient urine is negative Lab Data Labs: Lab Results 09/21/22 Range/Units 19:47 Urine Color Yellow (Yellow) Urine Appearance Cloudy H (Clear) Urine pH 7.5 (5.0-9.0) Ur Specific [place] 1.008 (1.001-1.035) Urine Protein Negative (Negative) mg/dL Urine Glucose (UA) Negative (Negative) mg/dL Urine Ketones Negative (Negative) mg/dL Ur Blood (Man) 3+ H (Negative) Urine Nitrate Negative (Negative) Urine Bilirubin Negative (Negative) Urine Urobilinogen 1.0 (<2.0) mg/dL Leukocyte Esterase Rfl 3+ H (Negative) CHELITA/UL Urine RBC 0-2 (0-2) /hpf Urine WBC >100 /hpf Ur Squamous Epith Cells None seen (Few) /hpf Urine Bacteria 1+ H /hpf Urine Casts 0-2 UCG Bedside Result Negative Reference Range: Negati
[2022-09-21] MEDS: NITROFURANTOIN MONOHYD MACROCR 100 MG CAP PO (20:29)
== END 2022-09-21 20:34 | disposition home or self-care (01) ==
PROVIDERS: Emergency Medicine; Emergency Provider Emergency Medicine
DX: N39.0 Urinary tract infection, site not specified (principal)
CPT/HCPCS: 81001; 81025; 87077; 87086; 87088; 87186; 99283; A9270

== ENCOUNTER 2024-09-16 16:37 | Emergency (ER) | payer BC, SELFPAY ==
[2024-09-16 16:59] VITALS: BP 109/70; PULSE 95; RESP 18; TEMP 37.2; O2SAT 100
--- OUTSIDE RECORDS SUMMARY | 2024-09-16 17:05 | XMS_ITS | Clinical Summary ---
Author Organization [facility] Address [address] [place] [id number] Care Team Providers Care Blade Operator Name Role Phone No, Physician Primary Care Provider [phone] Allergies Active Allergy Reactions Criticality Noted Date Comments Clindamycin Rash Medium 08/04/2014 Penicillins Itching,Rash Medium 07/28/2014 Medications PNV [id number] ORAL Take 1 tablet by mouth 08/06/2018 Active Active Problems Problem Noted Date Diagnosed Date ASCUS with positive high risk HPV cervical 01/19 Resolved Problems Problem Noted Date Diagnosed Date Resolved Date Cervical cerclage suture pre sent in second trimester 12/04/2018 01/19/2019 Overview (12/04/2018): Placed on 12/04/18 with [facility] Dichorionic diamniotic twin 10/12/2018 01/19/2019 Overview (11/23/2018): First Trimester: [x] Dating Criteria: 14 wk US [x] Labs: O+/I/-/-, NR [x] Genetic Screening: panorama low risk,fraternal twins male and female 2nd Trimester: [x] Anatomy ultrasound 11/23: A, echogenic focus stomach; B, incomplete face views. Referred to [facility]. 3rd Trimester: [] CBC, HIV, syphilis screen [] 1hr GCT (26-28wks): [] Tdap (27-36wks): [] Rhogam (if Rh neg): [] GBS: Counseling: [] Method of delivery: [] Method of contraception: undecided [] Method of feeding: undecided BMI 28.0-28.9,adult 10/12/2018 01/20/20 19 Urinary tract infection in m other during second trimester of 10/12/2018 01/19/2019 Overview (10/12/2018): MAYRA next visit Medical History Medical History Date Comments Dichorionic diamniotic twin 10/12/2018 First Trimester: [X] Dating Criteria: 14 wk US [X] Labs: O+/I/-/-, NR [X] Genetic Screening: panorama low risk,fraternal twins male and female 2nd Trimester: [X] Anatomy ultrasound 11/23: A, echogenic focus stomach; B, incomplete face views. Referred to [facility]. 3rd Trimester: [ ] CBC, HIV, syphilis screen [ ] 1hr GCT (26-28wks): [ ] Tdap (27-36wks): [ ] Rhogam (if Rh neg): [ ] GBS: Couns Social History Tobacco Use Types Packs/Day Years Used Date Smoking Tobacco: Never Smokeless Tobacco: Never Alcohol Use Standard Drinks/Week Comments Not Currently 0 (1 standard drink = 0.6 oz pur e alcohol) Comments No Sex and Gender Information Value Date Recorded Sex Assigned at Not on file Legal Sex Female 7:33 PM [employer] Gender Identity Not on file Sexual Orientation Not on file Obstetrics History Para Term AB IAB SAB Ectopic Multiple Livin g Live Births 1 1 1 1 2 2 Date Outcome GA Total Labor Labor/2nd/3rd Weight Sex Type Anes PTL Jelly A1 A5 Name Clin 12/26 25w 4d 0.85 kg (1 lb 14 oz) M Vag-S pont Y Living [facility] 12/26 25w 4d 0.765 kg (1 lb 11 oz) F Vag-S pont Y Living Jose[facility] Last Filed Vital Signs Vital Sign Reading Time Taken Comments Blood Pressure 98/60 01/19/2019 11:38 AM CDT Pulse 101 05/06/2015 11:32 PM CDT Temperature 36.7 C (98.1 F) 05/06/2015 11:32 PM CDT Respiratory Rate - - Oxygen Saturation 98% 05/06/2015 11:32 PM CDT Inhaled Oxygen Concentration - - Weight 80.9 kg (178 lb 6.4 oz) 01/19/2019 11:38 AM CDT Height 165.1 cm (5' 5 ) 10/07/2018 9:30 AM CDT Body Mass Index 29.69 10/07/2018 9:30 AM CDT Plan of Treatment Not on file Insurance IDPA Care Teams Blade Operator Relationship Specialty Start Date End Date No, Physician PCP - General 01/12/17
--- OUTSIDE RECORDS SUMMARY | 2024-09-16 17:05 | XMS_ITS | Continuity of Care Document ---
Author Organization [facility] Address [address] [place] [address] Phone Care Team Providers Care Lehr Operator Name Role Phone Unavailable Unavailable Unavailable Allergies, Adverse Reactions, Alerts Substance Reaction Status Criticality PENICILLIN Active No Information Medications Medication Instructions Dosage Effective Dates (start - stop) Status Comments doxycycline hyclate 100 mg capsule take 1 capsule by oral route every 12 hours 100 MG - Active Guaifenesin-DM BUCCAL take one tsp po ev roscoe 6 hours - Active Procedures Procedure Date OFFICE/OUTPATIENT VISIT, EST Urinalysis, Auto, w/o Scope URINE TEST, BY VISUAL COLOR CO MPARISON METHODS Results Test Name Date and Time Measure Units Reference Range Abnormal Flag Status Comments Panel Description: Choriogon adotropin.beta subunit ( test) [Presence] in Urine Final - Urine 8 17:10:27 Negative Negative Final Panel Description: Urinalysis, Macroscopic Alicia l Urine Color 8 17:10:27 Yellow Straw-Yellow Final Urine Clarity 8 17:10:27 Clear Clear Final Urine Specific [place] 8 17:10:27 1.010 1.010 - 1.030 Final Urine pH 8 17:10:27 7 5.0-8.0 Final Urine Glucose 8 17:10:27 norm g/dL Normal Final Urine Bilirubin 8 17:10:27 neg Negative Final Urine Ketones 8 17:10:27 neg mg/dL Negative Final Urine Blood 8 17:10:27 neg ROSCOE/UL Negative Final Urine Protein(Albumin) 8 17:10:27 neg mg/dL Negative Final Urine Urobilinogen 8 17:10:27 norm EU/dL 0.0 - 1.0 Final Urine Nitrite 8 17:10:27 neg Negative Final Urine Leukocyte Esterase 8 17:10:27 neg Negative Final Advance Directives Directive Yes / No Effective Date File Name No Information Encounters Encounter Description Practice Location Reason(s) For Visit Diagnoses Date Provider Providers Copied on Encounter OFFICE/OUTPA TIENT VISIT, [facility], [address], [place], [place], [id number] , [place] tel:[phone] Urgent Care URI (chief complaint) Acute bronchitisEncounte r for screening, unspecified 8 No Information Family History Family Member Type Diagnosis Age At Onset No Information Payers Payer name Insurance type Covered republican ID Authoriza tion(s) No Information Social History Type Description Quantity Date Captured Comments Sex Female Smoking Status No Information Vital Signs Date / Time: Height Weight BMI Pulse Rate Blood Pressure Temperature Respiratory Rate Body Surface Area Head Circumference Head Circ. Percentile Wt./[place]. Percentile BMI percentile Pulse Ox Inhaled Ox 4:58 PM 65.00 in 73.028 kg (161.00 lbs) 26.7 9 kg/m eter (2) 75 /min 113/78 mm[Hg] 97.70 F 20 /min 99 % Chief Complaint And Reason For Visit From encounter dated '07/21/2017 16:30'. URI (chief complaint). Description: The symptoms began 1 week ago. The patient presents with arthralgia and cough. The patient does not present with chills, fever, generalized weakness or headache. The self denies change in appetite, constipation, diaphoresis, dizziness, dyspnea, hoarseness, jaundice, pruritus and rash. Additional information: brings up yellowish green sputum. Reason For Referral Reason For Referral No Information History Of Present Illness Encounter Date Complaint History Of Prese nt Illness URI The symptoms beg an 1 week ago. The patient presents with arthralgia and cough. The patient does not present with chills, fever, generalized weakness or headache. The self denies change in appetite, constipation, diaphoresis, dizziness, dyspnea, hoarseness, jaundice, pruritus and rash. Additional information: brings up yellowish green sputum. Functional Status Date Functional Assessmen t Pain Score 0/10 Instructions Date Instruction Additional Infor mation No Information Assessments Type Assessment Date assessment Acute bronchitis Mental Status Date Cognitive Assessment Orientation - [place] ed to time, place, person, situation. Patient Care Teams Name Effective Dates (start - stop) Status Members No Information
--- OUTSIDE RECORDS SUMMARY | 2024-09-16 17:05 | XMS_ITS | Clinical Summary ---
Author Organization [facility] Address [address] [place] [address] Care Team Providers Care Document Control Specialist Name Role Phone Mattie Blair RN Unavailable [phone] Source Comments [facility],non-owned Affiliates and Associated Physician Practices is amultiple site organization consisting of ambulatory clinics and hospital sitesin [place], [place] and [place]. This disclosure is being madepursuant to the Care Everywhere program and may not contain all information available regarding this patient. Last updated 18.[facility] Allergies Active Allergy Reactions Criticality Noted Date Comments Penicillins Urticaria,Itching Medium 11/27/2014 Throat swelling per pt Medications * Be aware that medications may not be up to date on this document. Alwaysverify current medications with the patient. Medication Sig Dispensed Refills Start Date End Date Status acetaminophen (Tylenol) 500 MG capsule Take 1 (one) capsule by mouth every 6 hours as needed for Pain 12 capsule 01/13/2024 Active ibuprofen (Motrin) 200 MG tablet Take 3 (three) tablets by mouth every 6 hours as needed for Pain 36 tablet 01/13/2024 Active ondansetron, disintegrating, (Zofran ODT) 4 MG tablet Take 1 (one) tablet by mouth every 8 hours as needed for Nausea/Vomiting Allow tablet to dissolve on the tongue 12 tablet 01/13/2024 Active omeprazole (PriLOSEC) 20 MG capsule Take 1 (one) capsule by mouth once daily for 30 days 30 capsule 01/13/2024 Active phenazopyridine (Pyridium) 200 MG tablet Take 1 (one) tablet by mouth 3 times daily as needed 18 tablet 01/13/2024 Active sertraline (Zoloft) 100 MG tablet TAKE ONE TABLET BY MOUTH ONCE DAILY 30 tablet 12/11/2023 12/10/2024 Active Active Problems Patient Care Coordination No te Formatting of this note migh t be different from the original. [place] [employer] form completed. Diapers refused 01/04/20 Problem Noted Date Diagnosed Date MDD (major depressive disorder), single episode, severe 12/06/2023 SIRS (systemic inflammatory response syndrome) 0 01/21/2023 Acute pyelonephritis 01/21/2023 Generalized abdominal pain 09/22/2019 Resolved Problems Problem Noted Date Diagnosed Date Resolved Date Decreased movements in third trimester 0 12/21/2021 premature rupture of membranes (PPROM) with unknown onset of labor 12/14/201812/12 Threatened labor 12/10/2018 12/21/2021 Twin , antepartum 12/01/2018 0 12/21/2021 Abnormal ultrasound 12/01/2018 Ureteral stone 02/22/2018 12/01/2018 Right flank pain 02/22/2018 12/01/2018 Urinary tract infection with hematuria 02/22/2018 12/01/2018 Dichorionic diamniotic twin , antepartum 12/21/2021 Encounter to establish gesta tional age using ultrasound 12/21/2021 Poor growth, affecting management of mother, antepartum condition or complication 12/21/2021 Encounter for ultrasound 12/21/2021 Late care affecting in third trimester 12/21/2021 heart rate deceleratio ns affecting management of mother 12/21/2021 Suspected condition not found 12/21/2021 34 weeks gestation of 12/21/2021 History of delivery, currently in third trimester 12/21/2021 Vaginal delivery 12/21/2021 Immunizations Name Administration Dates Next Due DTP HIB, HISTORIC VACCINE 03/17/1996,08/18/1995, 06/16/1995,04/14/1995 DTaP VACCINE IM (6wk-6yrs) 03/21/2000 HEP B VACCINE, PED/ADOL 08/18/1995,06/16/1995, MMR 11/26/2019(Deferred: Patient Refused),12/27/2018,03/21/2000,03/17/1996 POLIO IPV 03/21/2000 POLIO OPV 08/18/1995,06/16/1995,04/14/1995 TDAP (7yrs+) 11/26/2019(Deferred: Patient Ref used),12/25/2018 Social History Tobacco Use Types Packs/Day Years Used Date Smoking Tobacco: Never Smokeless Tobacco: Never Tobacco Cessation:Counseling Given: No Alcohol Use Standard Drinks/Week Comments Not Currently 0 (1 standard drink = 0.6 oz pur e alcohol) AUDIT-C Answer Date Recorded Q1: How often do you have a drink containing alc ohol? 2-4 times a month 12/06/2023 Q2: How many drinks containi ng alcohol do you have on a typical day when you are drinking? 3 or 4 12/06/2023 Q3: How often do you have si x or more drinks on one occasion? Never 12/06/2023 Overall Financial Resource Strain (CARDIA) Answe r Date Recorded How hard is it for you to pa y for the very basics like food, housing, medical care, and heating? Not hard at all 12/06/2023 PHQ-2 Answer Date Recorded Patient Health Questionnaire-2 Score 1 12/06/2023 [facility] - Occupational Stress Questionnaire Answer Date Recorded Do you feel stress - tense, restless, nervous, or anxious, or unable to sleep at night because your mind is troubled all the time - these days? Only a little 12/06/2023 Hunger Vital Sign Answer Date Recorded Within the past 12 months, y ou worried that your food would run out before you got the money to buy more. Never true 12/06/19 24 Within the past 12 months, t he food you bought just didn't last and you didn't have money to get more. Never true 12/06/2023 PRAPARE - Transportation Answer Date Re corded In the past 12 months, has l ack of transportation kept you from medical appointments or from getting medications? No 11/12 In the past 12 months, has l ack of transportation kept you from meetings, work, or from getting things needed for daily living? No 12/06/2023 Housing Stability Vital Sign Answer Celso e Recorded In the last 12 months, was t here a time when you were not able to pay the mortgage or rent on time? Yes 12/06/2023 In the last 12 months, how many places have you lived? 1 12/06/2023 In the last 12 months, was t here a time when you did not have a steady place to sleep or slept in a senior living (including now)? No 12/06/2023 Sex and Gender Information Value Date Recorded Sex Assigned at Not on file Gender Identity Not on file Sexual Orientation Not on file Last Filed Vital Signs Vital Sign Reading Time Taken Comments Blood Pressure 104/71 05/15/2024 2:15 AM CDT Pulse 77 05/15/2024 2:15 AM CDT Temperature 36.3 C (97.4 F) 05/14/2024 9:47 PM CDT Respiratory Rate 18 05/15/2024 2:15 AM CDT Oxygen Saturation 99% 05/15/2024 2:15 AM CDT Inhaled Oxygen Concentration - - Weight 79.7 kg (175 lb 11.2 oz) 024 10:40 PM CDT Height 165.1 cm (5' 5 ) 05/14/2024 9:46 PM CDT Body Mass Index 29.24 05/14/2024 9:46 PM CDT Plan of Treatment Health Maintenance Due Date Last Done Comments HEPATITIS C SCREENING 12/21/2012 PAP SMEAR 10/24/2022 10/25/2019 COVID-19 VACCINE ( season) 2024 INFLUENZA VACCINE (#1) 2024 DEPRESSION SCREENING 07/14/2024 01/12/2024 DTAP/TDAP/TD VACCINES (7 - Td or Tdap) 12/25/2028 12/25/2018, 03/21/2000, 03/17/1996, Additional history exists ZOSTER VACCINE (1 of 2) 2044 HEPATITIS B VACCINE Completed 08/18/1995, 06/16/1995, 04/14/1995 HIB VACCINE Completed 03/17/1996, 11/1995, 06/16/1995, Additional history exists HIV SCREENING Completed 09/22/2019 HPV VACCINE Aged Out No longer eligi ble based on patient's age to complete this topic MENINGOCOCCAL (Group B) VACCINE Aged Out No longer eligible based on patient's age to complete this topic MENINGOCOCCAL VACCINE Aged Out No biju radha eligible based on patient's age to complete this topic PNEUMOCOCCAL VACCINE Aged Out No long er eligible based on patient's age to complete this topic Medical Devices Implanted Type Area Pipe Threader Device Identifier Shelf Expiration Date Model / Serial / Lot Stent Uret 6fr 24cm Pgtl Crv Tpr Tip Implanted:Qty: 1 on 02/23/2018 by Bhupinder Vora MD at [facility] Right: Ureter [employer] 06/08/2020 [id number] / / [id number] Procedures Procedure Name Priority Date/Time Associated Diagnosis Comments PAP LB RFLX HPV ASCU Routine 10/25/2019 3:52 PM CDT , unspecified gestational age (HCC) HIV-1 HIV-2 ANTIBODY + HIV P24 AG PANEL Routine 09/22/2019 1:32 PM CDT Generalized abdominal pain from Last 3 Months or Most Recently Relevant to Health Maintenance Results * PAP LB RFLX HPV ASCU (10/25/2019 3:52 PM CDT) Diagnosis Comment 10/27/2019 3:07 PM CDT [facility] ([facility]) Comment:NEGATIVE FOR INTRAEP ITHELIAL LESION OR MALIGNANCY. Specimen Adequacy Comment 020 3:07 PM CDT [facility] ([facility]) Comment: Satisfactory for evaluation. Endocervical and/or squamous metaplastic cells (endocervical component) are present. Performed by Comment 10/27/2019 3:07 PM CDT [facility] ([facility]) Comment:Milvia Castellano chnologist (ASCP) Comment . 10/27/2019 3:07 PM CDT [facility] ([facility]) Note Comment 10/27/2019 3:07 PM CDT [facility] ([facility]) Comment: The Pap smear is a screening test designed to aid in the detection of premalignant and malignant conditions of the uterine cervix. It is not a diagnostic procedure and should not be used as the sole means of detecting cervical cancer. Both false-positive and false-negative reports do occur. Note Comment 10/27/2019 3:07 PM CDT [facility] ([facility]) Comment: The HPV DNA reflex criteria were not met with this specimen result therefore, no HPV testing was performed. Pathology/Cytolo gy PART OF UTERINE CERVIX / Unknown Collection / Unknown 10/25/2019 3:52 PM CDT 10/25/2019 3:55 PM CDT Narrative [facility] ([facility]) - 10/27/2019 3:07 PM CDT Performed at: [address] [id number] Care Team Coordinator Scheduler: Elizabeth Zhang MD, Phone: [phone] Specimen Comment: Source.............Cervix;Endocervix Specimen Comment: No. of containers..01 ThinPrep Vial Mary Carmen Silverman MD LAB - PATHOLOGY/CYTO LOGY ORDERABLES [facility] ([facility]) [address] [place] [address] * HIV-1 HIV-2 ANTIBODY + HIV P24 AG PANEL (09/22/2019 1:32 PM CDT) HIV1/2 Ab + P24 Ag Non Reactive Non Reactive 09/22/2019 2:26 PM CDT [facility] Blood BLOOD SPECIMEN / Unknown Venipuncture / Unknown 09/22/2019 1:32 PM CDT 09/22/2019 1:39 PM CDT Narrative [facility] - 09/22/2019 2:26 PM CDT No Laboratory evidence of HIV infection. Dunia Frazier MD LAB - CHEMISTRY JOLLY HOWELL [facility] [address] [place] [address] from Last 3 Months or Most Recently Relevant to Health Maintenance Advance Directives * Full Code (Latest Code Status on File) Date Activated Date Inactivated Comments 12/06/2023 4:33 PM 12/11/2023 1:07 PM * Full Code Date Activated Date Inactivated Comments 01/21/2023 8:35 AM 01/24/2023 2:18 PM * Full Code Date Activated Date Inactivated Comments 11/24/2019 3:30 PM 11/27/2019 3:37 PM * Full Code Date Activated Date Inactivated Comments 11/24/2019 10:34 AM 11/24/2019 3:30 PM * Full Code Date Activated Date Inactivated Comments 11/08/2019 5:00 PM 11/09/2019 12:13 PM Care Teams Document Control Specialist Relationship Specialty Start Date End Date Mattie Blair, RN Music Professor 02/23/18
--- OUTSIDE RECORDS SUMMARY | 2024-09-16 17:05 | XMS_ITS | Referral Summary ---
Author Organization [facility] Address [address] [place] [id number] Care Team Providers Care Rug Receiving Clerk Name Role Phone No, Physician Primary Care Provider [phone] Allergies Active Allergy Reactions Criticality Noted Date Comments Clindamycin Rash Medium 08/04/2014 Penicillins Itching,Rash Medium 07/28/2014 Medications PNV [id number]-[id number] ORAL Take 1 tablet by mouth 08/06/2018 Active Active Problems Problem Noted Date Diagnosed Date ASCUS with positive high risk HPV cervical 01/19 Resolved Problems Problem Noted Date Diagnosed Date Resolved Date Cervical cerclage suture pre sent in second trimester 12/04/2018 01/19/2019 Overview (12/04/2018): Placed on 12/04/18 with [facility] Dichorionic diamniotic twin 10/12/2018 01/19/2019 Overview (11/23/2018): First Trimester: [x] Dating Criteria: 14 wk US [x] Labs: O+/I/-/-, NR [x] Genetic Screening: panorama low risk,fraternal twins male and female 2nd Trimester: [x] Anatomy ultrasound 11/23: A, echogenic focus stomach; B, incomplete face views. Referred to [facility]. 3rd Trimester: [] CBC, HIV, syphilis screen [] 1hr GCT (26-28wks): [] Tdap (27-36wks): [] Rhogam (if Rh neg): [] GBS: Counseling: [] Method of delivery: [] Method of contraception: undecided [] Method of feeding: undecided BMI 28.0-28.9,adult 10/12/2018 01/20/20 19 Urinary tract infection in m other during second trimester of 10/12/2018 01/19/2019 Overview (10/12/2018): [facility] next visit Social History Tobacco Use Types Packs/Day Years Used Date Smoking Tobacco: Never Smokeless Tobacco: Never Alcohol Use Standard Drinks/Week Comments Not Currently 0 (1 standard drink = 0.6 oz pur e alcohol) Comments No Sex and Gender Information Value Date Recorded Sex Assigned at Not on file Legal Sex Female 7:33 PM [employer] Gender Identity Not on file Sexual Orientation [...] of Treatment [place] [address] Care Teams Rug Receiving Clerk Relationship Specialty Start Date End Date No, Physician PCP - General 01/12/17
--- OUTSIDE RECORDS SUMMARY | 2024-09-16 17:05 | XMS_ITS | Patient Health Summary ---
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 INDICATION: R07.89: Other chest pain R10.9: Unspecified abdominal pain ADDITIONAL CLINICAL INFORMATION: Ordering Provider Reason For Exam: Technologist Note: Additional: COMPARISON: None. TECHNIQUE: CT of the abdomen and pelvis was performed following the uneventful administration of 100 mL of Isovue 370 intravenous contrast according to standard protocol. Findings: Lower Chest: Normal. Liver: Normal. Gallbladder and Bile Ducts: Normal. Spleen: Normal. Pancreas: Normal. Adrenals: Normal. Kidneys: Normal. Gastrointestinal: The stomach and visualized loops of small bowel are unremarkable. Normal appendix. Chronic increased submucosal lipid in the right colon. However there is new wall thickening in the hepatic flexure and transverse colon without surrounding edema. The lumen is decompressed and so some of this appearance could be artifactual. The more distal colon is normal and contains formed stool.. Mesentery/Peritoneum/Retroperitoneum: Normal. Bladder: Normal. Reproductive Organs: The uterus is normal. Vasculature: No vascular abnormality is present. Bones: Bone windows demonstrate no suspicious lytic or blastic lesions. The visible osseous structures are intact. Soft tissues: Normal. Procedure Note Faustina Verdin MD - 01/13/2024 PROCEDURE: CT ABDOMEN PELVIS W CONTRAST, DATE/TIME OF EXAM: 41:41 AM, LOCATION [facility] INDICATION: R07.89: Other chest pain R10.9: Unspecified abdominal pain ADDITIONAL CLINICAL INFORMATION: Ordering Provider Reason For Exam: Technologist Note: Additional: COMPARISON: None. TECHNIQUE: CT of the abdomen and pelvis was performed following the uneventful administration of 100 mL of Isovue 370 intravenous contrast according to standard protocol. Findings: Lower Chest: Normal. Liver: Normal. Gallbladder and Bile Ducts: Normal. Spleen: Normal. Pancreas: Normal. Adrenals: Normal. Kidneys: Normal. Gastrointestinal: The stomach and visualized loops of small bowel are unremarkable. Normal appendix. Chronic increased submucosal lipid in the right colon.However there is new wall thickening in the hepatic flexure and transverse colon without surrounding edema. The lumen is decompressed and so some ofthis appearance could be artifactual. The more distal colon is normal and contains formed stool.. Mesentery/Peritoneum/Retroperitoneum: Normal. Bladder: Normal. Reproductive Organs: The uterus is normal. Vasculature: No vascular abnormality is present. Bones: Bone windows demonstrate no suspicious lytic or blastic lesions. The visible osseous structures are intact. Soft tissues: Normal. Impression: Mild wall thickening of the colon with intraluminal fluid which may indicate colitis. > Dictated by Taj Garza MD (administration vice president). I, Faustina Verdin MD have personally reviewed and interpreted this examination/study. > Interpreting Provider: Faustina Verdin MD on 01/13/2024 8:59 AM Gerardo Petersen MD CT ORDERABLES * TROPONIN-I HIGH SENSITIVE (01/12/2024 10:25 PM CDT) Troponin I High Sensitive <3 <=14 ng/L 01/12/2024 11:12 PM CDT [facility] Blood BLOOD SPECIMEN / Unknown Venipuncture / Unknown 01/12/2024 10:25 PM CDT 01/12/2024 10:40 PM CDT Gerardo Petersen MD LAB - CHEMISTRY O RDERABLES [facility] [address], [place] [id number] * (ABNORMAL) CBC W AUTO DIFFERENTIAL (01/12/2024 10:25 PM CDT) Only the most recent of23 resultswithin the time period is included. WBC 7.8 4.0 - 10.7 x10E9/L 01/12/2024 11:06 PM CDT [facility] RBC Count 3.89(L) 3.90 - 5.20 x10E12/L 01/12/2024 11:06 PM CDT [facility] Hemoglobin 10.7(L) 11.9 - 15.8 g/dL 01/12/2024 11:06 PM CDT [facility] Hematocrit 34.4(L) 34.8 - 46.1 % 01/12/2024 11:06 PM CDT [facility] MCV 88.4 80.0 - 98.0 fL 01/12/2024 11:06 PM CDT [facility] MCH 27.5 26.7 - 33.6 pg 01/12/2024 11:06 PM CDT [facility] MCHC 31.1(L) 31.7 - 36.3 g/dL 01/12/2024 11:06 PM CDT [facility] RDW-CV 14.4 11.3 - 14.8 % 01/12/2024 11:06 PM CDT [facility] Platelet Count 204 150 - 420 x10E9/L 01/12/2024 11:06 PM CDT [facility] MPV 11.1 7.8 - 11.4 fL 01/12/2024 11:06 PM CDT [facility] Neutrophil % 81.6(H) 41.0 - 74.0 % 01/12/2024 11:06 PM CDT [facility] Lymphocyte % 14.2(L) 17.0 - 47.0 % 01/12/2024 11:06 PM CDT [facility] Monocyte % 3.1 3.0 - 11.0 % 01/12/2024 11:06 PM CDT [facility] Eosinophil % 0.3 0.0 - 7.0 % 01/12/2024 11:06 PM CDT [facility] Basophil % 0.3 0.0 - 1.6 % 01/12/2024 11:06 PM CDT [facility] Immature Granulocytes % 0.5 0.0 - 1.0 % 01/12/2024 11:06 PM CDT [facility] Neutrophil Absolute 6.39 1.60 - 7.50 x10E9/L 01/12/2024 11:06 PM CDT [facility] Lymphocyte Absolute 1.11 1.00 - 4.40 x10E9/L 01/12/2024 11:06 PM CDT [facility] Monocyte Absolute 0.24 0.15 - 1.00 x10E9/L 01/12/2024 11:06 PM CDT [facility] Eosinophil Absolute 0.02 0.00 - 0.60 x10E9/L 01/12/2024 11:06 PM CDT [facility] Basophil Absolute 0.02 0.00 - 0.13 x10E9/L 01/12/2024 11:06 PM CDT [facility] Blood BLOOD SPECIMEN / Unknown Venipuncture / Unknown 01/12/2024 10:25 PM CDT 01/12/2024 10:40 PM CDT Gerardo Petersen MD LAB - HEMATOLOGY ORDERABLES Performing Organization Address City/State/[facility] Co de Phone Number [facility] [address] [place] [address] * (ABNORMAL) COMPREHENSIVE METABOLIC PANEL (01/12/2024 10:25 PM CDT) Only the most recent of11 resultswithin the time period is included. [facility] Glucose 97 70 - 105 mg/dL 01/12/2024 11:09 PM CDT [facility] Sodium 138 136 - 145 mmol/L 01/12/2024 11:09 PM CDT [facility] Potassium 3.4(L) 3.5 - 5.1 mmol/L 01/12/2024 11:09 PM CDT [facility] Chloride 104 98 - 107 mmol/L 01/12/2024 11:09 PM CDT [facility] CO2 23 22 - 29 mmol/L 01/12/2024 11:09 PM CDT [facility] Calcium 9.1 8.4 - 10.4 mg/dL 01/12/2024 11:09 PM CDT [facility] Anion Gap 11 6 - 16 mmol/L 01/12/2024 11:09 PM CDT [facility] BUN 10 5.3 - 18.7 mg/dL 01/12/2024 11:09 PM CDT [facility] Creatinine 0.70 0.57 - 1.11 mg/dL 01/12/2024 11:09 PM T [facility] Alkaline Phosphatase 94 40 - 150 U/L 01/12/2024 11:09 PM CDT [facility] ALT 13 0 - 55 U/L 01/12/2024 11:09 PM CDT [facility] AST 18 5 - 34 U/L 01/12/2024 11:09 PM T [facility] Protein Total 7.0 6.4 - 8.3 gm/dL 01/12/2024 11:09 PM CDT [facility] Albumin 3.8 3.4 - 5.0 gm/dL 01/12/2024 11:09 PM CDT [facility] Bilirubin Total 1.0 0.2 - 1.2 mg/dL 01/12/2024 11:09 PM T [facility] eGFR by CKD-EPI >90 >=90 mL/min/1.7 3 m2 01/12/2024 11:09 PM T [facility] Blood BLOOD SPECIMEN / Unknown Venipuncture / Unknown 01/12/2024 10:25 PM CDT 01/12/2024 10:40 PM CDT Gerardo Petersen MD LAB - CHEMISTRY O RDERABLES [facility] [address] [place] [address] * HCG BETA BLOOD QUANTITATIVE (01/12/2024 10:25 PM CDT) Only the most recent of3 resultswithin the time period is included. hCG Quantitative <2.42 mIU/mL 01/12/20 11:10 PM CDT [facility] Blood BLOOD SPECIMEN / Unknown Venipuncture / Unknown 01/12/2024 10:25 PM CDT 01/12/2024 10:40 PM CDT Narrative [facility] - 01/12/2024 11:10 PM CDT hCG Reference Range, mIU/mL: Non Females 0-6.0 Perimenopausal Females ages 41-55* 0-7.7 Postmenopausal Females age >55* 0-14 Females, Weeks after Last Menstrual Period 0.2-1 week 5-50 1 - 2 weeks 50-500 2 - 3 weeks 100-5000 3 - 4 weeks 500-10,000 4 - 5 weeks 1000-50,000 5 - 6 weeks 10,000-100,000 6 - 8 weeks 15,000-200,000 2 - 3 months 10,000-100,000 Trophoblastic Disease >100,000 *In higher than expected hCG in females > age 40, a serum FSH >20 IU/L makes unlikely. Gerardo Petersen MD LAB - CHEMISTRY O [place] Performing Organization Address City/[facility] Co de Phone Number [facility] [address] [place] [id number] * LIPASE BLOOD (01/12/2024 10:25 PM CDT) Only the most recent of2 resultswithin the time period is included. [facility] Lipase 8 <60 U/L 01/12/2024 11:09 PM CDT [facility] Blood BLOOD SPECIMEN / Unknown Venipuncture / Unknown 01/12/2024 10:25 PM CDT 01/12/2024 10:40 PM CDT Gerardo Petersen MD LAB - CHEMISTRY O RDSERGE Performing Organization Address [facility] Co de Phone Number [facility] [address] [place] [id number] * EKG 12-LEAD (01/12/2024 10:12 PM CDT) Only the most recent of2 resultswithin the time period is included. [facility] Ventricular Rate 90 BPM [facility] Atrial Rate 90 BPM [facility] P-R Interval 156 ms [facility] QRS Duration ms 98 ms [facility] Q-T Interval ms 348 ms [facility] QTC Calculation (Bezet) 425 ms [facility] Calculated P [place] 71 degrees [facility] Calculated R [place] 73 degrees [facility] M[facility] Calculated T [place] 44 degrees [facility] Interpretation EKG NORMAL SINUS RHYTHM WITH SINUS ARRHYTHMIA INCOMPLETE RIGHT BUNDLE BRANCH BLOCK NONSPECIFIC T WAVE ABNORMALITY ABNORMAL ECG NO PREVIOUS ECGS AVAILABLE Confirmed by DO FUENTES STEPHANIE ([id number]) on 01/13/2024 4:26:38 PM [facility] 01/12/2024 10:1 2 PM CDT 01/13/2024 4:26 PM CDT Gerardo Petersen MD ECG ORDERABLES [facility] * (ABNORMAL) DRUG SCREEN TOX LIMITED BLD PNL 3 INHOUSE (12/06/2023 10:43 AM CDT) Acetaminophen <3.0(L) 10.0 - 30.0 ug/mL 12/06/2023 11:08 AM CDT [facility] Ethanol 31.8(H) <10 mg/dL 12/06/2023 11:08 AM CDT [facility] Salicylate <5.0(L) 15.0 - 30.0 mg/dL 12/06/2023 11:08 AM CDT [facility] Blood BLOOD SPECIMEN / Unknown Venipuncture / Unknown 12/06/2023 10:43 AM CDT 12/06/2023 10:48 AM CDT Narrative [facility] - 12/06/2023 11:08 AM CDT [facility] ACETAMINOPHEN COMMENT Critical values: 4 Hours Post Ingestion: Critical value > 200 g/mL 12 Hours Post Ingestion: Critical value > 50 g/mL For acute ingestion, please refer to Acetaminophen nomogram to determine the risk of toxicity based on time since ingestion and acetaminophen level (see link provided). Note the nomogram disclaimer. WARNING: Assessing the potential toxicity of an acetaminophen level on a standard risk nomogram must take into consideration many factors including any uncertainty of the time since ingestion or the possibility of other medications that may alter the peak level. Contact the [facility] at or reserved for healthcare professionals to assist you in evaluating potentially toxic acetaminophen levels. Santos Chen MD LAB - CHEMISTRY O MAD[place] Performing Organization Address City/[facility]/ZIP Co de Phone Number [facility] [address] [place] [address] * MAGNESIUM BLOOD (12/06/2023 10:43 AM CDT) Only the most recent of8 resultswithin the time period is included. Magnesium 2.1 1.6 - 2.6 mg/dL 12/06/2023 11:08 AM CDT [facility] Blood BLOOD SPECIMEN / Unknown Venipuncture / Unknown 12/06/2023 10:43 AM CDT 12/06/2023 10:48 AM CDT Santos Chen MD LAB - CHEMISTRY O MADISON Performing Organization Address [facility] de Phone Number [facility] [address] [place] [address] * HCG URINE QUALITATIVE (12/06/2023 5:56 AM CDT) Only the most recent of2 resultswithin the time period is included. Pathologist [facility] hCG Qualitative Urine Negative Negative 12/06/2023 6:04 AM CDT [facility] Urine URINE / Unknown Collection / Unknown 12/06/2023 5:56 AM CDT 12/06/2023 5:57 AM CDT Narrative [facility] - 12/06/2023 6:04 AM CDT Specimens containing human anti-mouse antibodies may exhibit false positive or false negative results. If qualitative interpretation is inconsistent with clinical evaluation, consider confirmation by an alternative hCG method. Torrie Yung DO LAB - URINALYSIS ORDERABLES Performing Organization Address [facility] Co de Phone Number [facility] [address] [place] [address] * (ABNORMAL) URINE DRUG SCREEN IMMUNOASSAY (12/06/2023 5:56 AM CDT) Only the most recent of4 resultswithin the time period is included. Amphetamines Screen Urine Not detected Not detected 12/06/2023 6:13 AM CDT [facility] Barbiturates Screen Urine Not detected Not detected 12/06/2023 6:13 AM CDT [facility] Benzodiazepines Screen Urine Not detected Not detected 12/06/2023 6:13 AM CDT [facility] Cannabinoids Screen Urine Detected(A) Not detected 12/06/2023 6:13 AM CDT [facility] Cocaine Screen Urine Not detected Not detected 12/06/2023 6:13 AM CDT [facility] Fentanyl Urine Not detected Not detected 12/06/2023 6:13 AM CDT [facility] Methadone Screen Urine Not detected Not detected 12/06/2023 6:13 AM CDT [facility] Opiate Screen Urine Not detected Not detected 12/06/2023 6:13 AM CDT [facility] Phencyclidine Screen Urine Not detected Not detected 12/06/2023 6:13 AM CDT [facility] Urine URINE / Unknown Collection / Unknown 12/06/2023 5:56 AM CDT 12/06/2023 5:57 AM CDT [facility] - 12/06/2023 6:13 AM CDT This drug screen is designed for MEDICAL purposes only. It is not to be used for legal purposes, including but not limited to worker's comp, police investigations, occupational issues, child custody, etc. Any positive result is only presumptive and must be confirmed with a separate confirmatory test ordered by the physician. Drug Screening Test Cutoff Values: AMPHETAMINES 1000 ng/mL BARBITURATES 200 ng/mL BENZODIAZEPINES 200 ng/mL CANNABINOIDS(THC) 50 ng/mL COCAINE 300 ng/mL FENTANYL 1 ng/mL METHADONE 300 ng/mL OPIATES 300 ng/mL PHENCYCLIDINE(PCP) 25 ng/mL Torrie Yung DO LAB - URINE CHEMI STRY ORDERABLES [facility] [address] [facility] [place] [address] * (ABNORMAL) CBC W/O DIFFERENTIAL (01/24/2023 3:23 AM CDT) Only the most recent of3 resultswithin the time period is included. Pathologist [facility] WBC 10.4 4.4 - 10.7 x10E9/L 01/24/2023 3:57 AM CDT [facility] RBC 3.42(L) 3.80 - 5.20 x10E12/L 01/24/2023 3:57 AM CDT [facility] Hemoglobin 10.4(L) 12.0 - 15.6 gm/dL 01/24/2023 3:57 AM CDT [facility] Hematocrit 32.0(L) 35.9 - 45.5 % 01/24/2023 3:57 AM CDT [facility] MCV 93.6 80.7 - 98.3 fl 01/24/2023 3:57 AM CDT [facility] MCH 30.4 26.7 - 34.0 pg 01/24/2023 3:57 AM CDT [facility] MCHC 32.5 30.8 - 35.9 gm/dL 01/24/2023 3:57 AM CDT [facility] Platelet Count 183 153 - 416 x10E9/L 01/24/2023 3:57 AM CDT [facility] RDW-CV 12.3 12.1 - 14.9 % 01/24/2023 3:57 AM CDT [facility] MPV 11.6 9.4 - 12.9 fl 01/24/2023 3:57 AM CDT [facility] Blood BLOOD SPECIMEN / Unknown Lab Venipuncture / Unknown 01/24/2023 3:23 AM CDT 01/24/2023 3:46 AM CDT Idris Hurt MD LAB - HEMATOLOGY ORD ERABLES [facility] [address] [place] [address] * (ABNORMAL) BASIC METABOLIC PANEL (CALCIUM TOTAL) (01/23/2023 2:54 AM CDT) Only the most recent of3 resultswithin the time period is included. Pathologist [facility] Glucose 99 70 - 105 mg/dL 01/23/2023 4:33 AM CDT [facility] Sodium 138 136 - 145 mmol/L 01/23/2023 4:33 AM CDT [facility] Potassium 3.4(L) 3.5 - 5.1 mmol/L 01/23/2023 4:33 AM CDT [facility] Chloride 106 98 - 107 mmol/L 01/23/2023 4:33 AM CDT [facility] CO2 24 22 - 29 mmol/L 01/23/2023 4:33 AM CDT [facility] Calcium 8.4 8.4 - 10.4 mg/dL 01/23/2023 4:33 AM CDT [facility] Anion Gap 8 6 - 16 mmol/L 01/23/2023 4:33 AM CDT [facility] BUN 5(L) 5.3 - 18.7 mg/dL 01/23/2023 4:33 AM CDT [facility] Creatinine 0.56(L) 0.57 - 1.11 mg/dL 01/23/2023 4:33 AM CDT [facility] eGFR by CKD-EPI >90 >=90 mL/min/1.7 3 m2 01/23/2023 4:33 AM CDT [facility] Blood BLOOD SPECIMEN / Unknown Lab Venipuncture / Unknown 01/23/2023 2:54 AM CDT 01/23/2023 4:03 AM CDT Idris Hurt MD LAB - CHEMISTRY JOLLY HOWELL Performing Organization Address City/[facility]/ZIP Co de Phone Number [facility] [address] [place] [phone] * CULTURE BLOOD (01/22/2023 2:22 PM CDT) Only the most recent of6 resultswithin the time period is included. Culture No growth day 5 AMARILIS 01/27/2023 5:[address] [facility] MICROBIOLOGY Blood PERIPHERAL BLOOD / Unknown Lab Venipuncture / Unknown 01/22/2023 2:22 PM CDT 01/22/2023 2:36 PM CDT Idris Hurt MD LAB - MICROBIOLOGY O RDERABLES [facility] MICROBIOLOGY [address] [place] [address], [facility] [[email or web address]] [phone] * PHOSPHORUS BLOOD (01/22/2023 5:08 AM CDT) Phosphorus 3.7 2.3 - 4.7 mg/dL 01/22/2023 6:08 AM CDT [facility] Blood BLOOD SPECIMEN / Unknown Lab Venipuncture / Unknown 01/22/2023 5:08 AM CDT 01/22/2023 5:45 AM CDT Idris Hurt MD LAB - CHEMISTRY JOLLY HOWELL Performing Organization Address [facility] de Phone Number [facility] [address] [place], [place] [id number] * LACTIC ACID BLOOD (01/22/2023 5:08 AM CDT) Only the most recent of2 resultswithin the time period is included. Lactic Acid 0.8 <=2 mmol/L 01/22/2023 6:17 AM CDT [facility] Blood BLOOD SPECIMEN / Unknown Lab Venipuncture / Unknown 01/22/2023 5:08 AM CDT 01/22/2023 5:46 AM CDT Idris Hurt MD LAB - CHEMISTRY JOLLY HOWELL Performing Organization Address [facility] de Phone Number [facility] [address] [place] [phone] * LACTIC ACID BLOOD REFLEX TO REPEAT (01/21/2023 1:07 AM CDT) Lactic Acid 1.6 <=2 mmol/L 01/21/2023 1:32 AM CDT [facility] Blood BLOOD SPECIMEN / Unknown Venipuncture / Unknown 01/21/2023 1:07 AM CDT 01/21/2023 1:19 AM CDT Mayte Hill DO LAB - CHEMISTRY ORDE RABLES [facility] [address] [place] [address] * HCG URINE QUALITATIVE - POCT (IP) INTERFACED (09/21/2021 1:50 PM [employer] BABYSITTER) Only the most recent of3 resultswithin the time period is included. HCG Qual Urine Negative Negative 09/21/2021 1:56 PM [employer] NEEDS BABYSITTER [facility] Urine URINE / Unknown 09/21/2021 1 :50 PM [employer] BABYSITTER 09/21/2021 1:55 PM [employer] NEEDS BABYSITTER Stacy Garza MD LAB - POINT OF CARE ORDERABLES Performing Organization Address City/[facility] Co de Phone Number [facility] [address] [place] [address] * US PELVIS W TRANSVAG NON OB (05/09/2021 3:31 PM CDT) Anatomical Region Laterality Modality Pelvis Ultrasound 05/10/2021 9:37 AM CDT Impressions 05/10/2021 9:39 AM CDT Unremarkable pelvic ultrasound. *Reading Radiologist: Miguel Ann on 05/10/2021 at 9:39 AM Narrative 05/10/2021 9:39 AM CDT Pelvic ultrasound with transvaginal imaging INDICATION: Pelvic pain FINDINGS: Transabdominal and transvaginal imaging the pelvis was performed. The uterus measured 7.2 x 3.4 x 5.3 cm. There is no uterine mass. Endometrial stripe measured 2 mm. There is no endometrial mass. The right ovary measured 3.0 x 1.4 x 2.0 cm. The left ovary measured 2.4 x 1.2 x 1.3 cm. No adnexal masses are seen. Normal color Doppler is seen within the ovaries. No free fluid is identified. Procedure Note Miguel Ann MD - 05/10/2021 Pelvic ultrasound with transvaginal imaging INDICATION: Pelvic pain FINDINGS: Transabdominal and transvaginal imaging the pelvis was performed. The uterus measured 7.2 x 3.4 x 5.3 cm. There is no uterine mass. Endometrial stripe measured 2 mm. There is no endometrial mass. The right ovary measured 3.0 x 1.4 x 2.0 cm. The left ovary measured 2.4 x 1.2 x 1.3 cm. No adnexal masses are seen. Normal color Doppler is seen within the ovaries. No free fluid is identified. IMPRESSION Unremarkable pelvic ultrasound. *Reading Radiologist: Miguel Ann on 05/10/2021 at 9:39 AM Germain Thornton MD US ORDERABLES * CHLAMYDIA + GC AMPLIFIED PROBE (STL) (05/02/2021 11:46 AM CDT) Only the most recent of2 resultswithin the time period is included. Pathologist [facility] Chlamydia Amplified Probe Negative Negative 05/03/2021 5:[address] [facility] MICROBIOLOGY GC Amplified Probe Negative Negative 05/03/2021 5:[address] [facility]CROBIOLOGY Microbiology ENTIRE ENDOCERVIX / Unknown Collection / Unknown 05/02/2021 11:46 AM CDT 05/02/2021 12:[address] [facility] MICROBIOLOGY - 05/03/2021 5:30 AM CDT Results based on detection/no detection of ribosomal RNA by amplified method. Germain Thornton MD LAB - MICROBIOLOGY O RDERABLES [facility] MICROBIOLOGY [address] [phone] * TRICHOMONAS RAPID TEST (05/02/2021 11:46 AM CDT) Only the most recent of4 resultswithin the time period is included. Trichomonas Rapid Test Negative Negative 05/02/2021 12:23 PM CDT [facility] Microbiology VAGINAL SWAB / Unknown Collection / Unknown 05/02/2021 11:46 AM CDT 05/02/2021 12:05 PM CDT Germain Thornton MD LAB - MICROBIOLOGY O RDERABLES [facility] [address] [place] [address] * HCG URINE QUALITATIVE - POINT OF CARE (01/04/2020 11:16 AM CDT) Only the most recent of2 resultswithin the time period is included. Pathologist [facility] HCG Qual Urine Negative Negative [facility] TEST[facility] QC Verified Yes Yes [facility] POC T TESTING Urine URINE / Unknown 01/04/2020 1 1:16 AM CDT Debbie Retana [employer]ECUTIVE [employer]ACH[employer] OPERATOR LAB - POINT OF C ARE ORDERABLES Performing Organization Address City/[facility]/ZIP Co de Phone Number [facility] [address] [place] [address] * IMAGING RADIOLOGY XRAY RESULTS ORDER (11/30/2019 6:48 PM CDT) Only the most recent of4 resultswithin the time period is included. Anatomical Region Laterality Modality Other Narrative 11/30/2019 6:48 PM CDT Ordered by an unspecified provider. Scanned Document IMAGING * (ABNORMAL) HGB HCT PANEL (11/26/2019 5:33 AM CDT) Only the most recent of2 resultswithin the time period is included. Pathologist [facility] Hemoglobin 9.5(L) 12.0 - 15.6 gm/dL 11/26/2019 6:08 AM CDT [facility] Hematocrit 29.8(L) 35.9 - 45.5 % 11/26/2019 6:08 AM CDT [facility] Blood BLOOD SPECIMEN / Unknown Lab Venipuncture / Unknown 11/26/2019 5:33 AM CDT 11/26/2019 6:02 AM CDT Anita Alvarez MD LAB - HEMATOLOGY ORDERABLES Performing Organization Address City/[facility]/ZIP Co de Phone Number [facility] [address] [place] [address] * GROSS + MICRO EXAM (STL) (11/25/2019 2:53 PM CDT) Pathologist [facility] Case Report Surgical Pathology Report Case: [id number] Authorizing Provider: Jojo Orlando MD Collected: 11/25/2019 02:53 PM Ordering Location: [facility] LD Received: 11/26/2019 06:50 AM Pathologist: Angelique Moreland MD Specimen: Placenta 3rd Trimester 11/29/2019 2:38 PM [facility] Final Diagnosis Umbilical cord, vaginal delivery: - Three-vessel cord with no histopathologic abnormality membranes, vaginal delivery: - No significant histopathologic abnormality Placenta, vaginal delivery: - Mature villous morphology - Placental weight and -placental ratio within normal limits for gestational age 0511/29/2019 2:38 PM [facility] Clinical History The patient is a 23-year-old, woman who presents at 36 weeks and 3 days of gestation with oligohydramnios and intrauterine growth restriction restriction. Operative procedure: Vaginal delivery of a viable male infant with Apgars of 7 and 8 weighing 2360 g. 11/29/2019 2:38 PM [facility] Gross Description Received in formalin, specimen A is a kevin discoid shaped placenta, 13.2 x 13.0 x 2.3 cm with a white-montoya umbilical cord measuring 20.0 cm in length and an average diameter of 1.2 cm that attached marginally approximately 0.5 cm away from the closest margin. The umbilical cord is trivascular, appropriately coiled and without obvious lesions. The membranes are brown-montoya and insert marginally. The placental surface is purple-montoya, and the maternal surface is brown-montoya with intact cotyledons. The parenchyma is red-montoya without any gross abnormalities. Placenta weight after trimming is 360 gm. Specialist Field Engineer sections submitted as follows: A1 - Umbilical cord and membranes A2-A3 - Placenta. DS/scs 11/29/2019 2:38 PM [facility] Microscopic Description Microscopic examination substantiates the final diagnosis. 11/29/2019 2:38 PM [facility] Disclaimer All histochemical and/or immunohistochemical results are interpreted with controls that demonstrate appropriate staining reactions before reporting results. Note on use of immunocytochemistry reagents: This test was developed and its performance characteristic determined by [facility], Department of Laboratory Medicine. It has not been cleared or approved by the U.S. Food and Drug Administration (FDA). The FDA has determined that such clearance or approval is not necessary. The test is used for clinical purpose. It should not be regarded as investigational or for research. This laboratory is certified to perform high complexity testing. The performance characteristics of the IHC/CHARLINE assays have been validated on formalin-fixed paraffin embedded tissues only. The assays have not been validated on decalcified tissues. Results should be interpreted with caution. 11/29/2019 2:38 PM CDT [facility] Embedded Images 11/29/2019 2:38 PM CDT [facility] Pathology/Cytolo gy ENTIRE PLACENTA / Unknown Collection / Unknown 11/25/2019 2:53 PM CDT 11/26/2019 6:50 AM CDT Jojo Orlando MD LAB - PATHOLOGY/CYTO LOGY ORDERABLES [facility] [address] [place] [address] * (ABNORMAL) BLOOD GASES CORD FREDDIE (11/25/2019 12:33 PM CDT) pH Cord Venous 7.29 7.28 - 7.40 pH 11/25/2019 12:45 PM CDT [facility] Comment:L pCO2 Cord Venous 43 35 - 45 mm hg 11/25/2019 12:45 PM CDT [facility] pO2 Cord Venous 33 22 - 33 mm hg 11/25/2019 12:45 PM CDT [facility] HCO3 Cord Venous 20(L) 22 - 24 mmol/L 11/25/2019 12:45 PM CDT [facility] Comment:L BE Cord Venous -6.3 mmol/L 11/25/2019 12:45 PM CDT [facility] O2 Saturation Cord Venous 56 % 11/25/2019 12:45 PM CDT [facility] Mode Unknown 11/25/2019 12:45 PM CDT [facility] Cyril's Test N/A 11/25/2019 12:45 PM CDT [facility] Sample Site UMB 11/25/2019 12:45 PM CDT [facility] Sample Type Venous 11/25/2019 12:45 PM CDT [facility] Sql Data Analyst ID [id number] 11/25/2019 12:45 PM CDT [facility] Blood CORD BLOOD SPECIMEN / Unknown 11/25/2019 12:33 PM CDT 11/25/2019 12:33 PM CDT Jojo Orlando MD LAB - BLOOD GASES OR DERABLES Performing Organization Address City/[facility]/ZIP Co de Phone Number [facility] [address] [place] [address] * (ABNORMAL) BLOOD GASES CORD ARTERIAL (11/25/2019 12:33 PM CDT) pH Cord Arterial 7.17(L) 7.20 - 7.34 pH 11/25/2019 12:46 PM CDT [facility] Comment:LL pCO2 Cord Arterial 56(H) 45 - 55 mm hg 11/25/2019 12:46 PM CDT [facility] Comment:H pO2 Cord Arterial 24 12 - 25 mm hg 11/25/2019 12:46 PM CDT [facility] Comment:L HCO3 Cord Arterial 20.0(L) 22.0 - 24.0 mmol/L 11/25/2019 12:46 PM CDT [facility] Comment:L BE Cord Arterial -9.1 mmol/L 11/25/2019 12:46 PM CDT [facility] Comment:L O2 Saturation Cord Arterial 29 % 11/25/2019 12:46 PM CDT [facility] Comment:LL Mode Unknown 11/25/2019 12:46 PM CDT [facility] Cyril's Test N/A 11/25/2019 12:46 PM CDT [facility] Sample Site UMB 11/25/2019 12:46 PM CDT [facility] Sample Type Arterial 11/25/2019 12:46 PM CDT [facility] TH[facility] Sql Data Analyst ID [id number] 11/25/2019 12:46 PM CDT [facility] Blood, arterial CORD BLOOD SPECIMEN / Unknown 11/25/2019 12:33 PM CDT 11/25/2019 12:33 PM CDT Jojo Orlando MD LAB - BLOOD GASES OR DERABLES Performing Organization Address City/[facility]/ZIP Co de Phone Number [facility] [address] [place] [address] * EPIDURAL BLOCK PERF (11/25/2019 11:45 AM CDT) Narrative Tamika Yeboah APRN-CRNA - 11/25/2019 11:45 AM CDT Tamika Yeboah APRN-CRNA 11/25/2019 11:57 AM Neuraxial Block Note Pre-Procedure: Procedure Name: Neuraxial Block Patient Location: OB Indications: labor analgesia Pre-Anesthetic Checklist: Patient identified, IV Checked, Risks and benefits discussed, Surgical consent verified, Monitors and equipment, Site examined, Pre-op evaluation done, Time-out performed, Informed consent obtained, Questions answered/anesthesia questions answered and Allergies reviewed Anticoagulation/ Anti-thrombosis status confirmed? Yes Monitors: BP and continuous pluse ox Patient Condition: awake Patient Sedated? No Procedure: Block Type: Epidural Prep: Betadine Sterile Field: mask, cap/hat, sterile established and sterile gloves Approach: midline Skin was localized? Yes Skin localized with: lidocaine (XYLOCAINE MPF) 1 % injection, 3 mL Epidural Block: Is this procedure for postop pain? No Needle Type: Tuohy Needle gauge: 18 G Needle length: 90 mm Placement Site: L3-L4 Number of Attempts: 1 Loss of Resistance: 8 air Catheter length at skin (cm): 12 CSF Aspirated from catheter: No Blood Aspirated: No Test Dose: lidocaine 1.5% with 1-200,000 epinephrine 5 mL at 11/25/2019 11:45 AM Test Dose Response: No Epidural Infusion Medications: Ropivacaine: 0.2% with Fentanyl 2mcg/mL in NS , at 12 mL/hr Degree of difficulty: none Procedure Tolerance: tolerated well Sensory Level: T7 Motor Blockade: Yes Position post procedure: left uterine displacement Vital Signs: Vital signs moniitored and stable throughout. See nursing vitals flowsheet for details. Start Time: 11/25/2019 11:43 AM End Time: 11/25/2019 11:45 AM Total Time: 2 Staff: Anesthesia Provider: Tamika Yeboah APRN-CRNA - performed the procedure Dave Astorga MD GENERAL ANESTHESIA ORDERABLES * TYPE + SCREEN PANEL (11/24/2019 4:09 PM CDT) Only the most recent of9 resultswithin the time period is included. ABO O 11/24/2019 4:38 PM CDT [facility] Rh Type Positive 11/24/2019 4:38 PM CDT [facility] Comment:History checked. Antibody Screen Negative 11/24/2019 4:38 PM CDT [facility] Blood Bank BLOOD SPECIMEN / Unknown Venipuncture / Unknown 11/24/2019 4:09 PM CDT 11/24/2019 4:16 PM CDT Anita Alvarez MD LAB - BLOOD BANK ORDERABLES [facility] [address] [place] [address], [facility] [[email or web address]] [phone] * BIOPHYSICAL PROFILE W NST (11/22/2019 2:18 PM CDT) Only the most recent of2 resultswithin the time period is included. Anatomical Region Laterality Modality Other 11/22/2019 2:18 PM CDT Narrative 11/23/2019 10:31 AM CDT [facility] PHONE: FAX: Pat. Name: JANE ECHEVARRIA Pat. No: [id number] Study Date: 11/22/2019 2:18pm , Age: 06 1995, 23 Pregnancies: 2, Para 2 Height: 65 in Weight: 180 lb LMP: Unknown GA by Base: 36w1d MALINDA: 12/19/2019 GA Selected: 36w1d (From [facility]) MALINDA: 12/19/2019 Referring MD: MD Pete, [facility] Communications Marketing Intern: Hodan Carbone RDMS CPT4: [id number] BMI: 29.95 Hist/Ind: Abnormal Dopplers on 11/05/2019 Incomplete Anatomy Screen No care Short interval G1: DCDA twins, PPROM, cerclage, PTD @ 25w4d Heart Rate: 141 bpm Amniotic Fluid Index: 12.3cm (07.7-24.9) Q1: 2.1cm Q2: 4.8cm Q3: 5.4cm Q4: 0.0cm Biophysical Profile: 04/22 Breathin Tone: 2 NST: 2 Movement: 2 AFV: 2 EVAL, PLACENTA Presentation: cephalic Placenta: anterior Heart Rate: 141 bpm Amniotic Fluid Volume: normal DOPPLER Umbilical - Mid Cord S/D 2.09(1.64 - 3.50) PI 0.73 (0.58 - 1.16) Middle Cerebral Artery PSV 43.5cm/s PI 1.41 (1.38 - 2.51) Med PSV 53.8cm/s MoM 0.81(<1.5) Anatomy!Normal!Abnormal!Suboptimal!Prev. Seen!Comments Cranium ! ! ! ! x ! Mdl (CSP/Thal! ! ! ! x ! Ventricles ! ! ! ! x ! Choroid Plexu! ! ! ! x ! Cerebellum ! ! ! ! x ! Cisterna M. ! ! ! ! x ! Nuchal Fold ! ! ! ! x ! Profile ! ! ! ! x ! Nasal Bone ! ! ! ! x ! Lip ! ! ! ! x ! Spine ! ! ! ! x ! Lungs ! ! ! ! x ! 4 Chamber Hea! ! ! ! x ! LVOT ! ! ! ! x ! RVOT ! ! ! ! x ! 3 Vessel View! ! ! ! x ! Cross-over ! ! ! ! x ! Ductal Arch ! ! ! ! x ! Aortic Arch ! ! ! ! x ! Caval View ! ! ! ! x ! Situs ! ! ! ! x ! Diaphragm ! ! ! ! x ! Stomach ! x ! ! ! x ! Bowel ! ! ! ! x ! Kidneys ! x ! ! ! x ! Bladder ! x ! ! ! x ! 3 Vessel Cord! ! ! ! x ! Cord In! ! ! ! x ! Upper Extremi! ! ! ! x ! Hands ! ! ! x ! ! Lower Extreme! ! ! ! x ! Feet ! ! ! x ! !suboptimal left, right previously seen External Deisy! ! ! ! x ! Placental Cor! ! ! ! x ! CLINICAL SUMMARY Study Number: 5 A single fetus is seen in cephalic presentation. The amniotic fluid volume is within normal limits. The FHR baseline [id number] bpm during today's reactive NST. The FHR variability was moderate. IMPRESSION: Single, live, intrauterine at 36w1d. Amniotic fluid volume: within normal limits Biophysical profile: Reassuring Dopplers studies: Normal RECOMMEND: Continue weekly BPP/Doppler studies and twice weekly NSTs Repeat growth in 1 week Please be advised that these recommendations are being made in the best interest of our patients during the COVID 19 Pandemic. Thanks for allowing us the opportunity to care for your patient. Elpidio Ann MD <Electronic Signature> 11/23/2019 09:59am Malinda Layne MD [facility] ORDERABLES * CULTURE STREP B (11/22/2019 2:10 PM CDT) Only the most recent of2 resultswithin the time period is included. Culture Strep B Negative for beta-hemolytic Streptococcus Group B AMARILIS 11/27/2019 10:[address] [facility] MICROBIOLOGY Microbiology MISCELLANEOUS SAMPLES / Unknown Collection / Unknown 11/22/2019 2:10 PM CDT 11/22/2019 2:32 PM CDT Solange Guidry MD LAB - MICROBIOLOGY O RDERABLES Performing Organization Address City/[facility]/ZIP Co de Phone Number [facility] MICROBIOLOGY [address] [phone] * GLUCOSE PROTEIN KETONE URINE - POINT OF CARE (11/22/2019 1:34 PM CDT) Only the most recent of2 resultswithin the time period is included. Pathologist [facility] Glucose UA neg Negative [facility] Protein UA neg Negative [facility] Ketone UA neg Negative [facility] QC Verified Yes Yes [facility] POC T TESTING Urine URINE / Unknown 11/22/2019 1 :34 PM CDT Solange Guidry MD LAB - POINT OF CARE ORDERABLES Performing Organization Address City/[facility] Co de Phone Number [facility] [address] [phone] * DOPPLER STUDIES (11/09/2019 9:21 AM CDT) Anatomical Region Laterality Modality Other 11/09/2019 9:21 AM CDT Narrative 11/13/2019 6:22 PM CDT [facility] PHONE: FAX: Pat. Name: JANE ECHEVARRIA Pat. No: [id number] Study Date: 11/09/2019 9:21am , Age: 06 1995, 23 Pregnancies: 2, Para 2 Height: 65 in Weight: 180 lb LMP: Unknown GA by Base: 34w2d MALINDA: 12/19/2019 GA Selected: 34w2d ([facility]) MALINDA: 12/19/2019 Referring MD: MD Pete, [facility] Communications Marketing Intern: Dinah Lawson RDMS CPT4: [id number] BMI: 29.95 Hist/Ind: Abnormal Dopplers on 11/05/2019 Incomplete Anatomy Screen No care Short interval G1: DCDA twins, PPROM, cerclage, PTD @ 25w4d Heart Rate: 149 bpm Amniotic Fluid Index: 12.9cm (08.1-24.8) Q1: 4.0cm Q2: 3.5cm Q3: 2.5cm Q4: 3.0cm EVAL, PLACENTA Presentation: cephalic Placenta: anterior Heart Rate: 149 bpm Amniotic Fluid Volume: normal DOPPLER Umbilical - Mid Cord S/D 1.98(1.72 - 3.66) PI 0.68 (0.62 - 1.20) Ductus Venosus PI 0.50 (0.26 - 0.76) Middle Cerebral Artery PSV 45.0cm/s PI 1.70 (1.52 - 2.72) Med PSV 49.3cm/s MoM 0.91(<1.5) CLINICAL SUMMARY Study Number: 3 A follow up exam was performed due to abnormal Dopplers on a previous exam. A single fetus is identified in the cephalic presentation. The amniotic fluid volume is normal. The placenta is anterior. IMPRESSION: Single, live, IUP 34w2d. normal amniotic fluid. Unremarkable Doppler studies Likely false positive exam on 11/08/19--patient reports fetus was breathing a lot on previous exam which may have affected S/D and PI indices RECOMMEND: Follow up ultrasound weekly BPP/Doppler and twice weekly NST No indication for future ductus venosus Doppler unless absent or reversed umbilical end diastolic flow Thank you for the opportunity to participate in the care of your patient. cc: Inpatient at time of study Brie Almanza MD <Electronic Signature> 11/13/2019 06:20pm Angela Hanna MD [facility] ORDERABLES * SONOGRAM - COMPLETE (11/08/2019 2:13 PM CDT) Only the most recent of4 resultswithin the time period is included. Anatomical Region Laterality Modality Other 11/08/2019 2:13 PM CDT Narrative 11/08/2019 4:28 PM CDT [facility] PHONE: FAX: Pat. Name: JANE ECHEVARRIA Pat. No: [id number] Study Date: 11/08/2019 2:13pm , Age: 06 1995, 23 Pregnancies: 2, Para 2 Height: 65 in Weight: 180 lb LMP: Unknown GA by Base: 34w1d MALINDA: 12/19/2019 GA by US: 34w0d MALINDA: 12/20/2019 GA Selected: 34w1d (From [facility]) MALINDA: 12/19/2019 Referring MD: MD Pete, [facility] Communications Marketing Intern: Soledad Duque RDMS, RVT CPT4: [id number] BMI: 29.95 Hist/Ind: Incomplete Anatomy Screen No care Short interval G1: DCDA twins, PPROM, cerclage, PTD @ 25w4d MEASUREMENTS & AGE GROWTH EVALUATION Measurement GA Range Srce %for GA Ratios ----- ---- ------- BPD 8.7 cm 35w1d (60g0d-85r1v) Hadl BPD 75% FL/BPD 0.74 (0.71 - 0.87) HC 31.7 cm 35w4d (50j1g-13g8x) Hadl HC 52% FL/AC 0.23 (0.20 - 0.24) AC 28.3 cm 32w2d (75g1v-44m8e) Hadl AC 9% HC/AC 1.12 (0.94 - 1.13) FL 6.4 cm 33w1d (49c4s-66h7l) Hadl FL 17% CI 0.78 (0.70 - 0.86) HL 5.8 cm 33w6d (07e7e-32e6g) Santo HL 45% Cere 4.1 cm 32w6d (52i3u-29n6v) Omar Cere27% GA for sonogram 34w0d (37c2o-07b9v) Weight Estimate: based on (BPD,HC,AC,FL) Avg Weight: 2142 gm (1829-2454gm) Had : 4lbs, 11oz Normal: 2397 gm (1798-2996gm) Had Wt% 21% for 34w1d Heart Rate: 135 bpm Amniotic Fluid Index: 12.6cm (08.1-24.8) Q1: 3.0cm Q2: 4.0cm Q3: 2.2cm Q4: 3.4cm Biophysical Profile: 04/22 Breathin Tone: 2 NST: 2 Movement: 2 AFV: 2 EVAL, PLACENTA Presentation: cephalic Placenta: anterior Heart Rate: 135 bpm Amniotic Fluid Volume: normal DOPPLER Umbilical - Mid Cord S/D 2.17(1.73 - 3.67) PI 0.79 (0.62 - 1.20) Ductus Venosus PI 0.92 (0.26 - 0.76) * Middle Cerebral Artery PSV 46.9cm/s PI 1.43 (1.52 - 2.73) * Med PSV 49.0cm/s MoM 0.96(<1.5) Anatomy!Normal!Abnormal!Suboptimal!Prev. Seen!Comments Cranium ! ! ! ! x ! Mdl (CSP/Thal! ! ! ! x ! Ventricles ! ! ! ! x ! Choroid Plexu! ! ! ! x ! Cerebellum ! x ! ! ! x ! Cisterna M. ! ! ! ! x ! Profile ! ! ! ! x ! Nasal Bone ! ! ! ! x ! Lip ! x ! ! ! ! Spine ! x ! ! ! ! Lungs ! ! ! ! x ! 4 Chamber Hea! ! ! x ! ! LVOT ! x ! ! ! ! RVOT ! ! ! ! x ! 3 Vessel View! ! ! ! x ! Cross-over ! ! ! ! x ! Ductal Arch ! ! ! ! x ! Aortic Arch ! x ! ! ! ! Caval View ! ! ! ! x ! Situs ! ! ! ! x ! Diaphragm ! ! ! ! x ! Stomach ! x ! ! ! x ! Bowel ! ! ! ! x ! Kidneys ! x ! ! ! x ! Bladder ! x ! ! ! x ! 3 Vessel Cord! ! ! ! x ! Cord In! ! ! ! x ! Upper Extremi! ! ! ! x ! Hands ! ! ! x ! ! Lower Extreme! ! ! ! x ! Feet ! ! ! x ! !unremarkable right, suboptimal left External Deisy! ! ! ! x ! Placental Cor! ! ! x ! ! CLINICAL SUMMARY Study Number: 2 A single fetus is seen in cephalic presentation. The measurements today are consistent with less than expected size for the MALINDA provided. The MALINDA is based on a prior ultrasound(confirmed). The amniotic fluid volume is within normal limits. IMPRESSION: Single, live, intrauterine at 34w1d size is small for gestational age Amniotic fluid volume: within normal limits No malformations seen within the limitations of ultrasound The MCA Doppler suggests possible brain sparing effect The DV has an A wave but the PI is elevated The BPP is 10/10 but at the onset of the NST there was a spontaneous slow up slow down 1-2 min deceleration RECOMMEND: In house management for EFM and steroids Twice weekly testing with weekly Doppler studies Follow up for growth in 3 weeks Please be advised that these recommendations are being made in the best interest of our patients during the COVID 19 Pandemic. Thank you for allowing us the opportunity to care for your patient Kendall Ojeda MD <Electronic Signature> 11/08/2019 04:23pm Kendall Ojeda MD [facility] ORDERABLES * PAP LB RFLX HPV ASCU (10/25/2019 3:52 PM CDT) Diagnosis Comment 10/27/2019 3:07 PM CDT [facility] ([facility]) Comment:NEGATIVE FOR INTRAEP ITHELIAL LESION OR MALIGNANCY. Specimen Adequacy Comment 020 3:07 PM CDT [facility] ([facility]) Comment: Satisfactory for evaluation. Endocervical and/or squamous metaplastic cells (endocervical component) are present. Performed by Comment 10/27/2019 3:07 PM CDT [facility] ([facility]) Comment:[place] Cytote chnologist (ASCP) Comment . 10/27/2019 3:07 PM CDT [facility] ([facility]) Note Comment 10/27/2019 3:07 PM CDT [facility] ([facility]) Comment: The Pap smear is a screening test designed to aid in the detection of premalignant and malignant conditions of the uterine cervix. It is not a diagnostic procedure and should not be used as the sole means of detecting cervical cancer. Both false-positive and false-negative reports do occur. Note Comment 10/27/2019 3:07 PM CDT [facility] ([facility]) Comment: The HPV DNA reflex criteria were not met with this specimen result therefore, no HPV testing was performed. Pathology/Cytolo gy PART OF UTERINE CERVIX / Unknown Collection / Unknown 10/25/2019 3:52 PM CDT 10/25/2019 3:55 PM CDT Narrative [facility] ([facility]) - 10/27/2019 3:07 PM CDT Performed at: [address] [place] [id number] Bezel Cutter: Elizabeth Zhang MD, Phone: [phone] Specimen Comment: Source.............Cervix;Endocervix Specimen Comment: No. of containers..01 ThinPrep Vial Mary Carmen Silverman MD LAB - PATHOLOGY/CYTO LOGY ORDERABLES [facility] ([facility]) [address] [place] [address] * GLUCOSE CHALLENGE (10/25/2019 3:41 PM CDT) Glucose Challenge 98 64 - 140 mg/dL 10/25/2019 4:38 PM CDT [facility] Glucose Challenge Time 1541 10/25/2019 4:38 PM CDT [facility] Blood BLOOD SPECIMEN / Unknown Venipuncture / Unknown 10/25/2019 3:41 PM CDT 10/25/2019 4:20 PM CDT Mary Carmen Silverman MD LAB - CHEMISTRY JOLLY HOWELL [facility] [address] [place] [address] * SYPHILIS ANTIBODY CASCADING REFLEX (09/22/2019 1:32 PM CDT) Treponema pallidum Antibody Non Reactive Non Reactive 09/22/2019 2:26 PM CDT [facility] Comment: No Laboratory evidence of syphilis infection. Note: Circulating antibodies may be low or undetectable in early infection. If recent exposure is suspected, re-draw sample in 2-4 weeks and repeat testing. Blood BLOOD SPECIMEN / Unknown Venipuncture / Unknown 09/22/2019 1:32 PM CDT 09/22/2019 1:39 PM CDT Dunia Frazier MD LAB - SEROLOGY ORDER LETY [facility] [address] [place], [place] [id number] * HIV-1 HIV-2 ANTIBODY + HIV P24 AG PANEL (09/22/2019 1:32 PM CDT) Pathologist [facility] HIV1/2 Ab + P24 Ag Non Reactive Non Reactive 09/22/2019 2:26 PM CDT [facility] Blood BLOOD SPECIMEN / Unknown Venipuncture / Unknown 09/22/2019 1:32 PM CDT 09/22/2019 1:39 PM CDT Narrative [facility] - 09/22/2019 2:26 PM CDT No Laboratory evidence of HIV infection. Dunia Frazier MD LAB - CHEMISTRY ORDPatrick HOWELL Performing Organization Address [facility] Co de Phone Number [facility] [address] [place] [address] * RUBELLA ANTIBODY IGG (09/22/2019 1:32 PM CDT) [facility] Rubella Antibody 1.96 Immune >0.99 index 09/24/2019 9:09 AM CDT [facility] ([facility]) Comment: Non-immune <0.90 Equivocal 0.90 - 0.99 Immune >0.99 Blood BLOOD SPECIMEN / Unknown Venipuncture / Unknown 09/22/2019 1:32 PM CDT 09/22/2019 1:38 PM CDT Narrative [facility] ([facility]) - 09/24/2019 9:09 AM CDT Performed at: 01 - [facility] [place] [address] [place], [place] [id number] Bezel Cutter: Rodger Carroll PhD, Phone: [phone] Dunia Frazier MD LAB - SEROLOGY ORDER LETY [facility] ([facility]) [address] [place] [address] * HEPATITIS B SURFACE ANTIGEN W RFLX CONFIRMATION (09/22/2019 1:32 PM CDT) Pathologist [facility] HBsAg Non Reactive Non Reactive 09/22/2019 2:26 PM CDT [facility] Blood BLOOD SPECIMEN / Unknown Venipuncture / Unknown 09/22/2019 1:32 PM CDT 09/22/2019 1:39 PM CDT Dunia Frazier MD LAB - CHEMISTRY JOLLY HOWELL Performing Organization Address City/[facility]/ZIP Co de Phone Number [facility] [address] [place] [address] * (ABNORMAL) BLOOD GASES CORD FREDDIE (ISTAT) (2018 3:28 AM CDT) Only the most recent of2 resultswithin the time period is included. Pathologist [facility] pH Cord Venous POCT 7.37 7.28 - 7.40 pH 12/28/2018 5:46 AM CDT [facility] pCO2 Cord Venous POCT 43 35 - 45 mmHg 12/28/2018 5:46 AM CDT [facility] pO2 Cord Venous POCT 34(H) 22 - 33 mmHg 12/28/2018 5:46 AM CDT [facility] HCO3 Cord Arterial POCT 24.9(H) 22 - 24 mmol/L 12/28/2018 5:46 AM CDT [facility] BE Cord Venous POCT Calc 0 -6.4 - 1.6 mmol/L 12/28/2018 5:46 AM CDT [facility] TCO2 Cord Venous POCT 26 22 - 30 mmol/L 12/28/2018 5:46 AM CDT [facility] O2 Saturation % Cord Venous Calc POCT 64 % 12/28/2018 5:46 AM CDT [facility] Site CORD FREDDIE 12/28/2018 5:46 AM CDT [facility] Sample iSTAT CORD V 12/28/2018 5:46 AM CDT [facility] Blood CORD BLOOD SPECIMEN / Unknown 2018 3:28 AM CDT 12/28/2018 5:41 AM CDT Narrative [facility] - 12/28/2018 5:46 AM CDT Baby B Brie Almanza MD LAB - POINT OF CA RE ORDERABLES [facility] [address] [place] [address] * PREPARE (CROSSMATCH) RBC UNIT(S), 4 Units (2018 1:30 AM CDT) Product Code [id number] [facility] Unit Donor # [id number] S [facility] B[facility] LAB ABO Donor Type O [facility] Rh Type Unit POS [facility] Unit Status Ret'd [facility] ABO Rh Type Unit OPOS [facility] Donor Unit Expiration Date [facility] Blood Type Barcode 5100 [facility] Blood Bank BLOOD SPECIMEN / Unknown 2018 1:30 AM CDT Anita Alvarez MD LAB - BLOOD BANK ORDERABLES Performing Organization Address [facility] de Phone Number [facility] [address] [phone] * NONSTRESS TEST (12/25/2018 6:47 PM CDT) Narrative Oh Mathis MD - 12/25/2018 6:47 PM CDT Sara Pruitt RN 12/25/2018 5:46 PM Name: Jane Echevarria Date of : 1995 Today's Date: 12/25/2018 Start: 1552 End: 1700 (ongoing) NST RESULTS (MULTIPLES) OBJECTIVE FINDINGS Temp: 98.5 F (36.9 C), Pulse: 97, Resp: 18, BP: 115/69 NST Indication(s): Multiple gestation, Premature rupture of membranes Uterine Irritability: No Contractions: Not present Perceived Intensity: (pt denies contractions) COMMENTS/INTERVENTIONS Inpatient Interventions: Position Change, Provider Notified OBJECTIVE FINDINGS Movement A: Present Monitoring Mode A: External, Monitor Readjusted Baseline FHR: 155 BPM Variability A: Moderate Accelerations-A: Yes Decelerations-A: Variable Movement B: Present Monitoring Mode B: External, Monitor Readjusted Baseline FHR B: (!) 165 BPM Variability B: Moderate Accelerations-B: Yes Decelerations-B: Variable Sara Pruitt RN Traci Mcclelland MD OB GYNE ORDERABLES * NONSTRESS TEST (12/25/2018 5:42 PM CDT) Narrative Oh Mathis MD - 12/25/2018 5:42 PM CDT Sara Pruitt RN 12/25/2018 11:40 AM Name: Jane Echevarria Date of : 1995 Today's Date: 12/25/2018 Start:951 End:1119 NST RESULTS (MULTIPLES) OBJECTIVE FINDINGS Temp: 98.5 F (36.9 C), Pulse: 98, Resp: 18, BP: 93/52 NST Indication(s): Multiple gestation, Premature rupture of membranes Uterine Irritability: No Contractions: Not present Perceived Intensity: (pt denies contractions) COMMENTS/INTERVENTIONS OBJECTIVE FINDINGS Movement A: Present Monitoring Mode A: External, Monitor Readjusted Baseline FHR: 150 BPM Variability A: Moderate Accelerations-A: Yes Decelerations-A: Variable Movement B: Present Monitoring Mode B: External, Monitor Readjusted Baseline FHR B: (!) 165 BPM Variability B: Moderate Accelerations-B: Yes Decelerations-B: Variable Sara Pruitt RN Traci Mcclelland MD OB GYNE ORDERABLES * NON-STRESS TEST (12/24/2018 1:22 PM CDT) Only the most recent of3 resultswithin the time period is included. Anatomical Region Laterality Modality Other Narrative 12/24/2018 1:22 PM CDT Sherice Weeks RN 12/24/2018 6:56 AM Name: Jane Echevarria Date of : 1995 Today's Date: 12/24/2018 Start: 353 Stop: 610 NST RESULTS (MULTIPLES) OBJECTIVE FINDINGS Temp: 98.5 F (36.9 C), , Resp: 16, BP: 89/52 NST Indication(s): Multiple gestation, Premature rupture of membranes Uterine Irritability: Yes Contractions: Irregular Frequency: x6 (over more than 2 hours) Duration (sec) Range: 50-80 Perceived Intensity: Mild COMMENTS/INTERVENTIONS Inpatient Interventions: Position Change, Oxygen, Provider Notified OBJECTIVE FINDINGS Movement A: Present Monitoring Mode A: External, Monitor Readjusted Baseline FHR: 145 BPM Variability A: Moderate Accelerations-A: Yes Decelerations-A: Variable Movement B: Present Monitoring Mode B: External, Monitor Readjusted Baseline FHR B: 155 BPM Variability B: Moderate Accelerations-B: Yes Decelerations-B: (!) Variable, Prolonged Sherice Weeks RN Darrell Berrios MD [facility] ORDERABLES * NONSTRESS TEST (12/23/2018 5:05 PM CDT) Narrative Oh Mathis MD - 12/23/2018 5:05 PM CDT Marixa Diaz RN 12/23/2018 12:35 PM Name: Jane Echevarria Date of : 1995 Today's Date: 12/23/2018 Start 1056 Stop 1226 NST RESULTS (MULTIPLES) OBJECTIVE FINDINGS Temp: 98 F (36.7 C), , Resp: 20, BP: 108/65 NST Indication(s): Multiple gestation, Premature rupture of membranes Uterine Irritability: Yes Contractions: Irregular Perceived Intensity: Mild COMMENTS/INTERVENTIONS Inpatient Interventions: Provider Notified OBJECTIVE FINDINGS Movement A: Present Monitoring Mode A: External Baseline FHR: 150 BPM Variability A: Moderate Accelerations-A: Yes Decelerations-A: Variable Movement B: Present Monitoring Mode B: External Baseline FHR B: 155 BPM Variability B: Moderate Accelerations-B: Yes Decelerations-B: None Marixa Diaz RN Traci Mcclelland MD OB GYNE ORDERABLES * NONSTRESS TEST (12/23/2018 11:55 AM CDT) Narrative Oh Mathis MD - 12/23/2018 11:55 AM CDT Debi Wheat RN 12/23/2018 12:26 AM Name: Jane Echevarria Date of : 1995 Today's Date: 12/23/2018 Start: 12/22/184 End: 12/22/18 2334 NST RESULTS (MULTIPLES) OBJECTIVE FINDINGS Temp: 98.4 F (36.9 C), , Resp: 18, BP: 110/61 NST Indication(s): Multiple gestation, Premature rupture of membranes Uterine Irritability: No Contractions: Irregular Frequency: x3 Duration (sec) Range: 90-100 sec COMMENTS/INTERVENTIONS Inpatient Interventions: Provider Notified OBJECTIVE FINDINGS Movement A: Present Monitoring Mode A: External Baseline FHR: 150 BPM Variability A: Moderate Accelerations-A: Yes (10x10 bpm accels) Decelerations-A: Variable Movement B: Present Monitoring Mode B: External Baseline FHR B: 160 BPM Variability B: Moderate Accelerations-B: Yes (10x10 bpm accels) Decelerations-B: Variable Debi Wheat RN Ambreen Green MD OB GYNE ORDERABLES * NONSTRESS TEST (12/22/2018 12:38 PM CDT) Narrative Oh Mathis MD - 12/22/2018 12:38 PM CDT Radha Brush RN 12/22/2018 11:59 AM Name: Jane Echevarria Date of : 1995 Today's Date: 12/22/2018 NST RESULTS (MULTIPLES) OBJECTIVE FINDINGS Temp: 98.3 F (36.8 C), , Resp: 18, BP: 99/58 NST Indication(s): Multiple gestation Uterine Irritability: No Contractions: Irregular Frequency: x1 Duration (sec) Range: 60 COMMENTS/INTERVENTIONS OBJECTIVE FINDINGS Movement A: Present Monitoring Mode A: External Baseline FHR: 150 BPM Variability A: Moderate Accelerations-A: Yes (10x10) Decelerations-A: Variable Movement B: Present Monitoring Mode B: External Baseline FHR B: 160 BPM Variability B: Moderate Accelerations-B: Yes Decelerations-B: Variable Radha Brush RN Ambreen Green MD OB GYNE ORDERABLES * NONSTRESS TEST (12/22/2018 8:11 AM CDT) Narrative Oh Mathis MD - 12/22/2018 8:11 AM CDT Darrell Berrios MD 12/22/2018 5:35 AM Name: Jane Jones Dejaynes Date of : 1995 Today's Date: 12/21/18 Start: 0 Stop: 2331 NST RESULTS (MULTIPLES) OBJECTIVE FINDINGS Temp: 98.6 F (37 C), , Resp: 16, BP: 107/56 NST Indication(s): Multiple gestation Uterine Irritability: No Contractions: Not present COMMENTS/INTERVENTIONS OBJECTIVE FINDINGS Movement A: Present Monitoring Mode A: External Baseline FHR: 150 BPM Variability A: Moderate Accelerations-A: Yes (10x10 accels) Decelerations-A: Variable Movement B: Present Monitoring Mode B: External Baseline FHR B: 150 BPM Variability B: Moderate Accelerations-B: Yes (15x15 accels) Decelerations-B: Variable Russ Alonzo RN NST A: baseline 145 bpm, moderate variability, reactive, some variables decelerations, reassuring NST B: baseline 150 bpm, moderate variability, reactive, some decelerations, reassuring [place]: quiet Darrell Berrios MD 12/22/2018 5:35 AM Ambreen Green MD OB GYNE ORDERABLES * NONSTRESS TEST (12/21/2018 2:51 PM CDT) Narrative Oh Mathis MD - 12/21/2018 2:51 PM CDT Marixa Diaz RN 12/21/2018 1:27 PM Name: Jane Echevarria Date of : 1995 Today's Date: 12/21/2018 Start 1129 Stop 1227 NST RESULTS (MULTIPLES) OBJECTIVE FINDINGS Temp: 98.1 F (36.7 C), , Resp: 16, BP: 99/59 NST Indication(s): Multiple gestation Uterine Irritability: Yes Contractions: Irregular COMMENTS/INTERVENTIONS Inpatient Interventions: N/A OBJECTIVE FINDINGS Movement A: Present Monitoring Mode A: External Baseline FHR: 145 BPM Variability A: Moderate Accelerations-A: Yes Decelerations-A: Variable Movement B: Present Monitoring Mode B: External Baseline FHR B: 150 BPM Variability B: Moderate Accelerations-B: Yes Decelerations-B: None Marixa Diaz RN Ambreen Green MD OB GYNE ORDERABLES * NONSTRESS TEST (12/21/2018 2:49 PM CDT) Narrative Oh Mathis MD - 12/21/2018 2:49 PM CDT Angelique Love MD 12/21/2018 7:32 AM NST Start: 12-20-18; 2233 Stop: 12-20-18; 2309 Name: Jane Echevarria Date of : 1995 Today's Date: 12/21/2018 NST RESULTS (MULTIPLES) OBJECTIVE FINDINGS Temp: 98.7 F (37.1 C), , Resp: 18, BP: 100/58 NST Indication(s): Multiple gestation Uterine Irritability: No Contractions: Not present COMMENTS/INTERVENTIONS OBJECTIVE FINDINGS Movement A: Present Monitoring Mode A: External Baseline FHR: 150 BPM Variability A: Moderate Accelerations-A: Yes Decelerations-A: Variable Movement B: Present Monitoring Mode B: External Baseline FHR B: 140 BPM Variability B: Moderate Accelerations-B: Yes Decelerations-B: None Camille Mariscal RN Non-Stress Test (NST) Jane Echevarria [id number] 12/21/2018 6:27 AM Indications: Non-Stress Test (NST) Jane Echevarria [id number] 12/21/2018 6:27 AM Indications: Patient Active Problem List: Twin , antepartum Abnormal ultrasound Threatened labor premature rupture of membranes (PPROM) with unknown onset of labor Interpretation: Fetus A: Baseline: 140 beats/minute reactive Variability: Moderate Contractions: none Decelerations: none Fetus B: Baseline: 155 beats/minute reactive Variability: Moderate Contractions: none Decelerations: none Recs: Cont testing while inpatient Angelique Love MD Ambreen Green MD OB GYNE ORDERABLES * NONSTRESS TEST (12/21/2018 2:49 PM CDT) Narrative Oh Mathis MD - 12/21/2018 2:49 PM CDT Angelique Love MD 12/21/2018 7:31 AM Name: Jane Echevarria Date of : 1995 Today's Date: 12/20/2018 Start 1154 Stop 1308 NST RESULTS (MULTIPLES) OBJECTIVE FINDINGS Temp: 97.7 F (36.5 C), , Resp: 16, BP: 129/68 NST Indication(s): Multiple gestation, Premature rupture of membranes Uterine Irritability: No Contractions: Irregular Frequency: x2 Duration (sec) Range: 40-50 Perceived Intensity: Mild (pt denies feeling) COMMENTS/INTERVENTIONS Inpatient Interventions: Other (Comment) OBJECTIVE FINDINGS Movement A: Present Monitoring Mode A: External, Monitor Readjusted Baseline FHR: 145 BPM Variability A: Moderate Accelerations-A: Yes Decelerations-A: Variable Movement B: Present Monitoring Mode B: External, Monitor Readjusted Baseline FHR B: 150 BPM Variability B: Moderate Accelerations-B: Yes Decelerations-B: Variable Malinda Benjamin RN Non-Stress Test (NST) Jane Echevarria [id number] 12/21/2018 6:26 AM Indications: Patient Active Problem List: Twin , antepartum Abnormal ultrasound Threatened labor premature rupture of membranes (PPROM) with unknown onset of labor Interpretation: Fetus A: Baseline: 145 beats/minute reactive Variability: Moderate Contractions: rare Decelerations: Occasional variable Fetus B: Baseline: 150 beats/minute reactive Variability: Moderate Contractions: rare Decelerations: Occasional variable Recs: Cont testing while inpatient Angelique Love MD Ambreen Green MD OB GYNE ORDERABLES * NONSTRESS TEST (12/20/2018 9:53 AM CDT) Narrative Kendall Ojeda MD - 12/20/2018 9:53 AM CDT Inna Ramirez MD 12/20/2018 7:21 AM Name: Jane Echevarria Date of : 1995 Today's Date: 12/19/2018 Start: 2230 End:2310 NST RESULTS (MULTIPLES) OBJECTIVE FINDINGS Temp: 98.5 F (36.9 C), , Resp: 18, BP: 105/60 COMMENTS/INTERVENTIONS Inpatient Interventions: None OBJECTIVE FINDINGS Movement A: Present Monitoring Mode A: External Baseline FHR: 140 BPM Variability A: Moderate Accelerations-A: Yes Decelerations-A: Variable Movement B: Present Monitoring Mode B: External Baseline FHR B: 140 BPM Variability B: Moderate Accelerations-B: Yes Decelerations-B: Variable Demontra Irina Dos Santos RN Non-Stress Test Indications: Patient Active Problem List: Twin , antepartum Abnormal ultrasound Threatened labor premature rupture of membranes (PPROM) with unknown onset of labor A 140 beats/minute Moderate variability Reactive Variable decelerations B 140 beats/minute Moderate variability Reactive Variable decelerations No contractions FWB reassuring, continue monitoring as scheduled. Inna Ramirez MD 12/20/2018 7:19 AM Ambreen Green MD OB GYNE ORDERABLES * NONSTRESS TEST (12/20/2018 9:53 AM CDT) Narrative Kendall Ojeda MD - 12/20/2018 9:53 AM CDT Inna Ramirez MD 12/20/2018 7:22 AM Name: Jane Echevarria Date of : 1995 Today's Date: 12/19/2018 Start A: 1151; Start B: 1154; Stop: 1227 NST RESULTS (MULTIPLES) OBJECTIVE FINDINGS Temp: 97.6 F (36.4 C), , Resp: 17, BP: 100/55 NST Indication(s): Multiple gestation, Premature rupture of membranes Uterine Irritability: No Contractions: Not present Frequency: none Duration (sec) Range: none Perceived Intensity: (denies abd pain, pressure, tightening) COMMENTS/INTERVENTIONS Comments: none Inpatient Interventions: None OBJECTIVE FINDINGS Movement A: Present (patient reports) Monitoring Mode A: External Baseline FHR: 145 BPM Variability A: Moderate Accelerations-A: Yes Decelerations-A: Variable Movement B: Present (patient reports) Monitoring Mode B: External Baseline FHR B: 150 BPM Variability B: Moderate Accelerations-B: Yes Decelerations-B: None Bella Sood RN Non-Stress Test Indications: Patient Active Problem List: Twin , antepartum Abnormal ultrasound Threatened labor premature rupture of membranes (PPROM) with unknown onset of labor A 145 beats/minute Moderate variability Reactive Variable decelerations B 150 beats/minute Moderate variability Reactive No decelerations No contractions FWB reassuring, continue monitoring as scheduled. Inna Ramirez MD 12/20/2018 7:21 AM Ambreen Green MD OB GYNE ORDERABLES * NONSTRESS TEST (12/19/2018 12:41 PM CDT) Narrative Kendall Ojeda MD - 12/19/2018 12:41 PM CDT Inna Ramirez MD 12/19/2018 7:49 AM Name: Jane Echevarria Date of : 1995 Today's Date: 12/19/2018 Start: 2238 End: 233 NST RESULTS (MULTIPLES) OBJECTIVE FINDINGS Temp: 98.3 F (36.8 C), , Resp: 18, BP: 104/56 NST Indication(s): Premature rupture of membranes Uterine Irritability: No Contractions: Not present COMMENTS/INTERVENTIONS Inpatient Interventions: None OBJECTIVE FINDINGS Movement A: Present Monitoring Mode A: External Baseline FHR: 145 BPM Variability A: Moderate Accelerations-A: Yes Decelerations-A: Variable Movement B: Present Monitoring Mode B: External Baseline FHR B: 155 BPM Variability B: Moderate Accelerations-B: Yes Decelerations-B: None Alex Dos Santos RN Non-Stress Test Indications: Patient Active Problem List: Twin , antepartum Abnormal ultrasound Threatened labor premature rupture of membranes (PPROM) with unknown onset of labor A 140 beats/minute Moderate variability Reactive Variable decelerations No contractions B 150 beats/minute Moderate variability Reactive No decelerations No contractions FWB reassuring, continue monitoring as scheduled. Inna Ramirez MD 12/19/2018 7:48 AM Ambreen Green MD OB GYNE ORDERABLES * NONSTRESS TEST (12/18/2018 8:23 AM CDT) Narrative Kendall Ojeda MD - 12/18/2018 8:23 AM CDT Angelique Love MD 12/18/2018 7:26 AM Name: Jane Echevarria Date of : 1995 Today's Date: 12/17/2018 Start: 2229 Stop: 2337 NST RESULTS (MULTIPLES) OBJECTIVE FINDINGS Temp: 98.5 F (36.9 C), , Resp: 18, BP: 105/65 NST Indication(s): Premature rupture of membranes Uterine Irritability: No Contractions: Not present COMMENTS/INTERVENTIONS OBJECTIVE FINDINGS Movement A: Present Monitoring Mode A: External, Monitor Readjusted Baseline FHR: 140 BPM Variability A: Moderate Accelerations-A: Yes Decelerations-A: None Movement B: Present Monitoring Mode B: External, Monitor Readjusted Baseline FHR B: 145 BPM Variability B: Moderate Accelerations-B: Yes Decelerations-B: Variable Cassi Cameron RN Non-Stress Test (NST) Jane Echevarria [id number] 12/18/2018 7:25 AM Indications: Patient Active Problem List: Twin , antepartum Abnormal ultrasound Threatened labor premature rupture of membranes (PPROM) with unknown onset of labor Interpretation: Fetus A: Baseline: 135 beats/minute reactive Variability: Moderate Contractions: none Decelerations: none Fetus B: Baseline: 150 beats/minute reactive Variability: Moderate Contractions: none Decelerations: none Recs: Cont testing BID while inpatient Angelique Love MD Ambreen Green MD OB GYNE ORDERABLES * (ABNORMAL) DIFFERENTIAL MANUAL (12/15/2018 5:42 AM CDT) Only the most recent of2 resultswithin the time period is included. WBC Auto 18.6 x10E9/L 12/15/2018 7:26 AM CDT [facility] WBC Corrected 4.4 - 10.7 x10E9/L 12/15/2018 7:26 AM CDT [facility] nRBC /100 WBC 12/15/2018 7:26 AM CDT [facility] Neutrophil % Manual 66 44 - 73 % 12/15/2018 7:26 AM CDT [facility] Lymphocytes % Manual 12(L) 20 - 43 % 12/15/2018 7:26 AM CDT [facility] Monocytes % Manual 8 5 - 13 % 12/15/2018 7:26 AM CDT [facility] Band % Manual 10 0 - 11 % 12/15/2018 7:26 AM CDT [facility] [place] Manual 3(H) <=0 % 12/15/2018 7:26 AM CDT [facility] Myelocytes % Manual 1(H) <=0 % 12/15/2018 7:26 AM CDT [facility] Cells Counted 100 # cells 12/15/2018 7:26 AM [facility] RBC Morphology Normal 12/15/2018 7:26 AM CDT [facility] WBC Morph Normal 12/15/2018 7:26 AM CDT [facility] Platelet Estimation Normal 12/15/2018 7:26 AM CDT [facility] Blood BLOOD SPECIMEN / Unknown Lab Venipuncture / Unknown 12/15/2018 5:42 AM CDT 12/15/2018 6:11 AM CDT Sierra Lundberg MD LAB - HEMATOLOGY ORD ERABLES [facility] [address] [place] [address] * NONSTRESS TEST (12/14/2018 8:33 AM CDT) Narrative Saranya Alaniz APRN-[employer] MELLOWING MACHINE OPERATOR - 12/14/2018 8:33 AM CDT Natali Tovar RN 12/13/2018 8:35 PM Name: Jane Echevarria Date of : 1995 Today's Date: 12/13/2018 NST RESULTS (KEVIN) OBJECTIVE FINDINGS Temp: 98.6 F (37 C), , Resp: 16, NST Indication(s): Multiple gestation, labor, Premature rupture of membranes Uterine Irritability: No Contractions: Not present OBJECTIVE FINDINGS OTHER INFORMATION Natali Tovar RN Ambreen Green MD OB GYNE ORDERABLES * CHLAMYDIA + GC AMPLIFIED PROBE (12/11/2018 4:26 PM CDT) Only the most recent of2 resultswithin the time period is included. Chlamydia Amplified Probe Negative Negative 12/14/2018 6:54 AM CDT [facility] GC Amplified Probe Negative Negative 12/14/2018 6:54 AM CDT [facility] Other ENTIRE ENDOCERVIX / Unknown Collection / Unknown 12/11/2018 4:26 PM CDT 12/11/2018 4:37 PM CDT Narrative [facility] - 12/14/2018 6:54 AM CDT Results based on detection/no detection of ribosomal RNA by amplified method. Sierra Lundberg MD LAB - MICROBIOLOGY O RDERABLES Performing Organization Address [facility]/ZIP Co de Phone Number [facility] [address] [facility] [phone] * (ABNORMAL) AMNISURE (12/10/2018 11:46 PM CDT) Amnisure (PAMG-1) Positive(A ) Negative 12/11/2018 12:08 AM CDT [facility] Fluid AMNIOTIC FLUID SPECIMEN / Unknown Collection / Unknown 12/10/2018 11:46 PM CDT 12/10/2018 11:54 PM CDT Narrative [facility] - 12/11/2018 12:08 AM CDT The performance of AmniSure has not been established in the presence of the following contaminants: meconium, anti-fungal creams or suppositories, K-Y Jelly, Monistat, baby powder (starch or talc), replens, or baby oil. In the presence of a significant amount of blood, the test can malfunction and is not recommended. Interrupted leakage with minimal residual fluid can lead to false negative result. Results should be used in conjunction with other clinical information. Test performance in patients without signs of ROM is unknown. Placenta previa and performing digital exams prior to sample collection can lead to inaccurate test results. Failure to detect membrane rupture does not assure the absence of membrane rupture. Angelique Love MD LAB - BODY FLUID O [place] Performing Organization Address [facility] Co de Phone Number [facility] [address] [place], [place] [id number] * CARDIAC RHYTHM STRIP ORDER (12/09/2018 4:30 PM CDT) Only the most recent of2 resultswithin the time period is included. Narrative 12/09/2018 4:30 PM CDT Ordered by an unspecified provider. Scanned Document CARDIAC SERVICES ORD ERABLES * BLOOD TYPE VERIFICATION (12/03/2018 6:44 PM CDT) ABO O 12/03/2018 7:28 PM CDT [facility] Rh Type Positive 12/03/2018 7:28 PM CDT [facility] Blood Bank BLOOD SPECIMEN / Unknown Lab Venipuncture / Unknown 12/03/2018 6:44 PM CDT 12/03/2018 6:49 PM CDT Ruth Restrepo MD LAB - BLOOD BANK OR DERABLES Performing Organization Address City/[facility]/ZIP Co de Phone Number [facility] [address] [phone] * (ABNORMAL) C-REACTIVE PROTEIN (08/05/2018 10:44 PM SPECIAL NEEDS BABYSITTER) C-Reactive Protein 0.42(H) <0.30 mg/dL 08/06/2018 12:13 AM [facility] NEEDS BABYSITTER [facility] Blood BLOOD SPECIMEN / Unknown Venipuncture / Unknown 08/05/2018 10:44 PM [facility] NEEDS BABYSITTER 08/05/2018 10:48 PM [facility] NEEDS BABYSITTER Hari Mehta MD LAB - CHEMISTRY ORDE RABLES Performing Organization Address City/[facility]/ZIP Co de Phone Number [facility] [address] [place] [address] * HCG URINE QUAL POCT NOTIFICATION (08/05/2018 10:43 PM [facility] NEEDS BABYSITTER) Comment Notification Label Only - See Separate Report 08/06/2018 12:00 AM [facility] NEEDS BABYSITTER [facility] Urine URINE / Unknown 08/05/2018 1 0:43 PM [facility] NEEDS BABYSITTER 08/05/2018 10:43 PM [facility] NEEDS BABYSITTER Hari Mehta MD LAB - URINALYSIS ORD ERABLES Performing Organization Address City/[facility]/ZIP Co de Phone Number [facility] [address] [place] [address] * URINALYSIS AUTO W MICROSCOPIC - POINT OF CARE (AMB) (04/20/2018) Clarity UA POCT clear Color UA POCT yellow Glucose UA neg Negative Bilirubin UA POCT neg Negative Ketone UA neg Negative Specific [place] UA POCT 1.020 1.002 - 1.030 Blood UA neg Negative pH UA 6.0 5.0 - 8.0 pH units Protein UA POCT neg Negative Urobilinogen UA 1.0 0.1 - 1.0 Nitrite UA POCT positive Negative Leukocyte UA trace Negative QC Verified Yes Yes RBC UA POCT neg 0 - 1 HPF WBC UA POCT neg 0 - 1 HPF Epithelial Cell UA POCT neg 0 - 1 HPF Bacteria UA POCT neg None Mucus UA POCT neg None Casts UA POCT neg None LPF Crystals UA POCT None LPF Urine Other Urine URINE / Unknown 04/20/2018 Bhupinder Vora MD LAB - POINT OF CARE ORDERABLES * US RETROPERITONEAL COMPLETE (04/08/2018 10:18 AM CDT) Anatomical Region Laterality Modality Abdomen Ultrasound 04/08/2018 10:2 7 AM CDT Impressions 04/08/2018 10:31 AM CDT There is no evidence of hydronephrosis. No definite calculi are identified. There are bilateral ureteral jets seen. Reading Radiologist: Lalito Chambers MD on 04/08/2018 at 10:31 AM Narrative 04/08/2018 10:31 AM CDT EXAM: Renal ultrasound HISTORY: History of right-sided ureteral calculus with stent placement COMPARISON: CT stone protocol dated 02/22/2018 FINDINGS: Transabdominal ultrasound the kidneys and urinary bladder was performed. The exam is somewhat limited due to patient's body habitus and overlying bowel gas. The right kidney appears normal in size measuring 10.0 x 5.5 x 4.3 cm in size. There is no focal masses cysts or evidence of hydronephrosis at this time. Left kidney measures 11.2 x 4.2 x 5.1 cm in size and demonstrates no focal abnormality. Urinary urinary bladder is normal in appearance. There are bilateral ureteral jets. Procedure Note Lalito Chambers MD - 04/08/2018 EXAM: Renal ultrasound HISTORY: History of right-sided ureteral calculus with stent placement COMPARISON: CT stone protocol dated 02/22/2018 FINDINGS: Transabdominal ultrasound the kidneys and urinary bladder was performed. The exam is somewhat limited due to patient's body habitus and overlying bowel gas. The right kidney appears normal in size measuring 10.0 x 5.5 x 4.3 cm in size. There is no focal masses cysts or evidence of hydronephrosis at this time. Left kidney measures 11.2 x 4.2 x 5.1 cm in size and demonstrates no focal abnormality. Urinary urinary bladder is normal in appearance. There are bilateral ureteral jets. IMPRESSION There is no evidence of hydronephrosis. No definite calculi are identified. There are bilateral ureteral jets seen. Reading Radiologist: Lalito Chambers MD on 04/08/2018 at 10:31 AM Bhupinder Vora MD US ORDERABLE S * CYSTOSCOPY (03/02/2018 12:08 PM CDT) Narrative Bhupinder Vora MD - 03/02/2018 12:08 PM CDT Bhupinder Vora MD 03/02/2018 12:08 PM The patient was prepped and draped after informed consent. The cystoscope was inserted into the urethra and panendoscopy performed. The indwelling stent was grasped with forceps and removed in its entirety. The cystoscope was then removed and the patient tolerated the procedure well. Bhupinder Vora MD PROCEDURE ORDERABLES * FL UROGRAM RETROGRADE (02/23/2018 3:43 PM CDT) Anatomical Region Laterality Modality Abdomen Radiographic Haley ging 02/23/2018 3:56 PM CDT Narrative 02/23/2018 3:57 PM CDT Retrograde pyelogram. Fluoroscopy time 21 seconds. 3 images were submitted showing placement of a right ureteral stent following ureteroscopy Reading Radiologist: Stanford Kirkland MD on 02/23/2018 at 3:57 PM Procedure Note Stanford Kirkland MD - 02/23/2018 Retrograde pyelogram. Fluoroscopy time 21 seconds. 3 images were submitted showing placement of a right ureteral stent following ureteroscopy Reading Radiologist: Stanford Kirkland MD on 02/23/2018 at 3:57 PM Bhupinder Vora MD FLUOROSCOPY ORDERABLES * CT RENAL STONE (02/22/2018 1:32 AM CDT) Anatomical Region Laterality Modality Abdomen Computed Tomogra phy 02/22/2018 7:07 AM CDT Impressions 02/22/2018 7:09 AM CDT 3-4 mm distal right ureteral stone; minimal hydroureter, no hydronephrosis. No additional urinary stones. Reading Radiologist: Hari Brown MD on 02/22/2018 at 7:09 AM Narrative 02/22/2018 7:09 AM CDT Procedure Title: CT RENAL STONE*[id number] HISTORY: Unspecified abdominal pain COMPARISON: None. TECHNIQUE: Helical CT acquisition without intravenous contrast of the abdomen and pelvis. FINDINGS: Examination is limited by lack of IV contrast administration, per protocol for evaluation of urinary stones. Minimally visualized lung bases clear; no pleural effusion. Distal right ureteral stone, 3-4 mm in size. Minimal hydroureter; no hydronephrosis. No additional urinary stones. Noncontrast enhanced appearance of the solid abdominal viscera and gallbladder otherwise unremarkable; bladder, uterus, ovaries within normal limits. Bowel unremarkable without obstruction. No free peritoneal air, fluid, or evident adenopathy. No acute osseous abnormality. Procedure Note Hari Brown MD - 02/22/2018 Procedure Title: CT RENAL STONE*[id number] HISTORY: Unspecified abdominal pain COMPARISON: None. TECHNIQUE: Helical CT acquisition without intravenous contrast of the abdomen and pelvis. FINDINGS: Examination is limited by lack of IV contrast administration, per protocol for evaluation of urinary stones. Minimally visualized lung bases clear; no pleural effusion. Distal right ureteral stone, 3-4 mm in size. Minimal hydroureter; no hydronephrosis. No additional urinary stones. Noncontrast enhanced appearance of the solid abdominal viscera and gallbladder otherwise unremarkable; bladder, uterus, ovaries within normal limits. Bowel unremarkable without obstruction. No free peritoneal air, fluid, or evident adenopathy. No acute osseous abnormality. IMPRESSION 3-4 mm distal right ureteral stone; minimal hydroureter, no hydronephrosis. No additional urinary stones. Reading Radiologist: Hari Brown MD on 02/22/2018 at 7:09 AM Duncan Roth MD CT ORDERABLES * (ABNORMAL) URINALYSIS REFLEX TO MICROSCOPIC NO CULTURE (02/22/2018 12:45 AM CDT) Color UA Yellow Straw, Yellow 02/22/2018 12:56 AM [facility] Clarity UA Cloudy(A) Clear 02/22/2018 12:56 AM [facility] Glucose UA Negative Negative 02/22/2018 12:56 AM [facility] Bilirubin UA Negative Negative 02/22/2018 12:56 AM [facility] Ketone UA Negative Negative 02/22/2018 12:56 AM [facility] Specific Imperial UA 1.013 1.005 - 1.030 02/22/2018 12:56 AM [facility] Blood UA 1+(A) Negative 02/22/2018 12:56 AM [facility] pH UA 5.0 5.0 - 8.0 pH 02/22/2018 12:56 AM [facility] Protein UA 1+(A) Negative 02/22/2018 12:56 AM [facility] Urobilinogen UA 4.0(A) Negative mg/dL 02/22/2018 12:56 AM [facility] Nitrite UA Positive(A) Negative 02/22/2018 12:56 AM [facility] Leukocyte UA 3+(A) Negative 02/22/2018 12:56 AM [facility] Urine Microscopy Urine microscopy to follow 02/22/2018 12:56 AM [facility] Urine URINE SPECIMEN OBTAINED BY CLEAN CATCH PROCEDURE / Unknown Collection / Unknown 02/22/2018 12:45 AM CDT 02/22/2018 12:[address] [facility] Narrative [facility] - 02/22/2018 12:56 AM CDT Duncan Roth MD LAB - URINALYSIS ORD ERABLES [facility] [address] [place] [address] * (ABNORMAL) URINE MICROSCOPIC ONLY (02/22/2018 12:45 AM CDT) RBC UA 0-5 None Seen, 0-5 # /hpf 02/22/2018 12:56 AM [facility] WBC Clumps UA Many(A) None Seen /HPF 02/22/2018 12:56 AM CDT [facility] WBC UA >100(A) None Seen, 0-5 # /hpf 02/22/2018 12:56 AM T [facility] Bacteria UA 3+(A) None Seen 02/22/2018 12:56 AM CDT [facility] Squamous Epithelial Cells 0-2 None Seen, 0-2, 3-5 /hpf 02/22/2018 12:56 AM CDT [facility] Mucus UA 3+ /LPF 02/22/2018 12:56 AM CDT [facility] Urine URINE SPECIMEN OBTAINED BY CLEAN CATCH PROCEDURE / Unknown Collection / Unknown 02/22/2018 12:45 AM CDT 02/22/2018 12:49 AM CDT [facility] - 02/22/2018 12:56 AM CDT Duncan Roth MD LAB - URINALYSIS ORD ERABLES Performing Organization Address City/[facility]/ZIP Co de Phone Number [facility] [address] [place] [address] * STREP A SCREEN DIRECT W RFLX STREP A CULTURE (05/08/2017 1:58 PM CDT) Only the most recent of2 resultswithin the time period is included. Strep A Rapid Negative Negative 05/08/2017 2:12 PM CDT [facility] Microbiology ENTIRE THROAT (SURFACE REGION OF NECK) / Unknown Collection / Unknown 05/08/2017 1:58 PM CDT 05/08/2017 2:01 PM CDT [facility] - 05/08/2017 2:12 PM CDT Test has reflexed to a Strep A culture. Dunia Hartley APRN-CATA LAB - MICROBIOL OGY ORDERABLES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
--- OUTSIDE RECORDS SUMMARY | 2024-09-16 17:05 | XMS_ITS | Referral Summary ---
Author Organization [facility] Address [address] [place] [address] Care Team Providers Care Equipment Worker Name Role Phone Mattie Blair RN Unavailable [phone] Source Comments [facility],non-owned Affiliates and Associated Physician Practices is amultiple site organization consisting of ambulatory clinics and hospital sitesin [place], [place], [place] and [place]. This disclosure is being madepursuant to the Care Everywhere program and may not contain all information available regarding this patient. Last updated 18.[facility] Allergies Active Allergy Reactions Criticality Noted Date [...] migh t be different from the original. [employer] form completed. Diapers refused 01/04/20 [...] Recorded Patient Health Questionnaire-2 Score 1 12/06/2023 [facility] - Occupational Stress [...] place to sleep or slept in a chcf (including now)? No 12/06/2023 Sex and Gender [...] Mass Index 29.24 05/14/2024 9:46 PM CDT Functional Status Functional Status Response Date of Assess ment Is person deaf or have serious hearing difficult y? No 12/06/2023 Is person blind or have serious difficulty seein g? No 12/06/2023 Does person have serious dif ficulty walking/climbing stairs? No 12/06/2023 Does person have difficulty dressing/bathing? No 12/06/2023 Does person have difficulty doing errands alone? No 12/06/2023 Cognitive Status Response Date of Assessm ent Does person have difficulty concentrating/remembering/making decisions? No 12/06/2023 Plan of Treatment Not on file Medical Devices Implanted Type Area Geospatial Imagery Intelligence Analyst Device Identifier Shelf Expiration Date Model / Serial / Lot Stent Uret 6fr 24cm Pgtl Crv Tpr Tip Implanted:Qty: 1 on 02/23/2018 by Bhupinder Vora MD at [facility] Right: Ureter [employer] Scimed 06/08/2020 [id number] / / [id number] Procedures Procedure Name Priority Date/Time Associated Diagnosis [...] Diagnosis Comment 10/27/2019 3:07 PM CDT [facility] ([facility]) Comment:NEGATIVE FOR INTRAEP ITHELIAL LESION OR MALIGNANCY. Specimen Adequacy Comment 020 3:07 PM CDT [facility] ([facility]) Comment: Satisfactory for evaluation. Endocervical and/or squamous metaplastic cells (endocervical component) are present. Performed by Comment 10/27/2019 3:07 PM CDT [facility] ([facility]) Comment:Kelvin Pond Cytote chnologist (ASCP) Comment . 10/27/2019 3:07 PM CDT [facility] ([facility]) Note Comment 10/27/2019 3:07 PM CDT [facility] ([facility]) Comment: The Pap smear is a screening test designed to aid in the detection of premalignant and malignant conditions of the uterine cervix. It is not a diagnostic procedure and should not be used as the sole means of detecting cervical cancer. Both false-positive and false-negative reports do occur. Note Comment 10/27/2019 3:07 PM CDT [facility] ([facility]) Comment: The HPV DNA reflex criteria were not met with this specimen result therefore, no HPV testing was performed. Pathology/Cytolo gy PART OF UTERINE CERVIX / Unknown Collection / Unknown 10/25/2019 3:52 PM CDT 10/25/2019 3:55 PM CDT [facility] ([facility]) - 10/27/2019 3:07 PM CDT Performed at: [address] [place] [id number] Clinic Physician Director: Elizabeth Zhang MD, Phone: [phone] Specimen Comment: Source.............Cervix;Endocervix Specimen Comment: No. of containers..01 ThinPrep Vial Mary Carmen Silverman MD LAB - PATHOLOGY/CYTO LOGY ORDERABLES [facility] ([facility]) [address] [place] [address] * HIV-1 HIV-2 ANTIBODY + HIV P24 AG PANEL (09/22/2019 1:32 PM CDT) HIV1/2 Ab + P24 Ag Non Reactive Non Reactive 09/22/2019 2:26 PM CDT [facility] Blood BLOOD SPECIMEN / Unknown Venipuncture / Unknown 09/22/2019 1:32 PM CDT 09/22/2019 1:39 PM CDT Narrative [facility] - 09/22/2019 2:26 PM CDT No Laboratory evidence of HIV infection. Dunia Frazier MD LAB - CHEMISTRY JOLLY HOWELL [facility] [address] [place] [address] from Last 3 Months or Most Recently [...] 5:00 PM 11/09/2019 12:13 PM Care Teams Equipment Worker Relationship Specialty Start Date End Date Mattie Blair, RN Textile Artist 02/23/18
--- OUTSIDE RECORDS SUMMARY | 2024-09-16 17:05 | XMS_ITS | Clinical Summary ---
Author Organization [facility] Address [address] [place] [address] Phone Care Team Providers Care Environmental Compliance Engineer Name Role Phone Unavailable Primary Care Provider Unavailabl e Allergies Active Allergy Reactions Criticality Noted Date Comments Clindamycin Rash Low 08/04/2014 Penicillins Rash Low 07/28/2014 Medications clindamycin (CLEOCIN) 150 mg capsule Take 3 Caps by mouth 4 times daily. 96 Cap None 07/28/2014 Active HYDROcodone-rohini taminophen (NORCO) 5-325 mg tablet Take 1 Tab by mouth every 6 hours as needed for Pain, Moderate or Pain, Severe. Max Daily Amount: 4 Tabs. 20 Tab None 07/28/2014 Active ranitidine (ZANTAC) 150 mg tablet Take 1 Tab by mouth 2 times daily. 30 Tab 0 07/30/2014 Active ondansetron (ZOFRAN) 4 mg Tablet Take 1 Tab by mouth every 8 hours as needed for Nausea/Emesis . 10 Tab None 07/30/2014 Active oxyCODONE-aceta minophen (PERCOCET) 5-325 mg tablet Take 1 Tab by mouth every 4 hours as needed for Pain, Moderate. Max Daily Amount: 6 Tabs. 30 Tab 0 08/05/2014 Active pseudoephedrine (SUDAFED) 30 mg tablet Take 2 Tabs by mouth every 4 hours as needed for Congestion. 30 Tab 0 08/05/2014 Active Active Problems No known active problems Social History Tobacco Use Types Packs/Day Years Used Date Smoking Tobacco: Never Cigarettes Alcohol Use Standard Drinks/Week Comments No 0 (1 standard drink = 0.6 oz pur e alcohol) Comments No Sex and Gender Information Value Date Recorded Sex Assigned at Not on file Legal Sex Female 7:24 PM INCLUSION MANAGER Gender Identity Not on file Sexual Orientation Not on file Last Filed Vital Signs Vital Sign Reading Time Taken Comments Blood Pressure 108/73 08/05/2014 9:54 AM INCLUSION MANAGER Pulse 94 08/05/2014 9:54 AM INCLUSION MANAGER Temperature 36.6 C (97.8 F) 08/05/2014 9:54 AM INCLUSION MANAGER Respiratory Rate 16 08/05/2014 9:54 AM INCLUSION MANAGER Oxygen Saturation 96% 08/05/2014 9:54 AM INCLUSION MANAGER Inhaled Oxygen Concentration - - Weight 74.8 kg (164 lb 12.8 oz) 08/04/2014 2:48 PM INCLUSION MANAGER Height 165.1 cm (5' 5 ) 08/04/2014 11:0 4 PM INCLUSION MANAGER Body Mass Index 27.42 08/04/2014 2:48 PM INCLUSION MANAGER Plan of Treatment Health Maintenance Due Date Last Done Comments DTAP/TDAP/TD VACCINES (1 - Tdap) 2013 HEPATITIS B VACCINES (1 of 3 - 19+ 3-dose series) 2013 CERVICAL CANCER SCREENING 12/27/2015 INFLUENZA VACCINE (#1) 2024 HPV VACCINES Aged Out No longer eligi ble based on patient's age to complete this topic PNEUMOCOCCAL VACCINE 0-49 YEARS Aged Out No longer eligible based on patient's age to complete this topic Medical Devices Implanted Type Area Yard Person Device Identifier Shelf Expiration Date Model / Serial / Lot Plate Lctsrb Orbt Lt 915-2808 - [id number] Implanted:Qty: 1 on 08/04/2014 by Jaye Ragsadle DMD at [facility] Plate Left: Orbital Floor BIOMET MARLON MOCK 04/04/2019 [id number] / / Screw Ht X-Dr Sd 1.5x4mm [id number] - [id number] Implanted:Qty: 1 on 08/04/2014 by Jaye Ragsdale DMD at [facility] Screw Left: Orbital Floor BIOMET MARLON MOCK [id number] / / Description:load 45 jun 27 1 4 Advance Directives For more information, please contact: [phone] * Full Code (Latest Code Status on File) Date Activated Date Inactivated Comments 08/04/2014 7:35 PM 08/05/2014 1:52 PM * Full Code Date Activated Date Inactivated Comments 08/04/2014 2:56 PM 08/04/2014 7:35 PM
--- NOTE | 2024-09-16 20:32 | ED_ITS ---
HPI - General Adult General Chief complaint: Unspecified Stated complaint: R FACIAL THROAT PAIN Time Seen by Provider: 09/16/24 20:16 Source: patient Mode of arrival: ambulatory Limitations: no limitations History of Present Illness HPI narrative: This is a 28 year old female that presents to the ER for right-sided facial pain. Ongoing over the last couple of days. Reports associated right ear pain and sore throat. Denies fevers. Related Data Allergies Allergy/AdvReac Type Severity Reaction Status Date / Time Penicillins Allergy Severe Anaphylactic Verified 09/16/24 20:15 Shock Review of Systems Review of Systems: CONSTITUTIONAL: Denies fever ENT: Reports sore throat, or otalgia. RESPIRATORY: Denies cough All systems reviewed & are unremarkable except as noted in HPI and below PMFSH Past Medical History Medical History (Updated 09/16/24 @ 22:33 by Nhung Guidry PA-C) Anemia Wrist fracture UTI (urinary tract infection) Social History Social History Smoking status: Never smoker Exam Narrative: GENERAL: Well-appearing, well-nourished, and in no acute distress. HEAD: Normocephalic, atraumatic. EYES: EOMI. ENT: Nares clear, no rhinorrhea or epistaxis. Mucous membranes moist. Oropharynx without tonsillar hypertrophy exudate or other lesions. Bilateral TMs pearly serrato non-bulging NECK: Supple. No adenopathy or masses. CHEST: Clear to auscultation. No respiratory distress. No wheezes rales or rhonchi HEART: Regular rate and rhythm. No murmur heard. Normal peripheral pulses. EXTREMITIES: Normal range of motion. No edema. SKIN: Warm, dry, no rash. NEURO: No focal deficits. Alert and oriented x3. PSYCH: Normal mood and affect Course Vital Signs Vital signs: Vital Signs Temperature 98.9 F 09/16/24 16:59 Pulse Rate 95 09/16/24 16:59 Respiratory Rate 18 09/16/24 16:59 Blood Pressure 109/70 09/16/24 16:59 Pulse Oximetry 100 09/16/24 16:59 Oxygen Delivery Room Air 09/16/24 16:59 Temperature 98.9 F 09/16/24 16:59 Pulse Rate 95 09/16/24 16:59 Respiratory Rate 18 09/16/24 16:59 Blood Pressure 109/70 09/16/24 16:59 Pulse Oximetry 100 09/16/24 16:59 Oxygen Delivery Room Air 09/16/24 16:59 Medical Decision Making MDM Narrative Medical decision making narrative: Patient presents to the emergency department for right-sided facial pain, sore throat, otalgia. She is afebrile and nontoxic appearing. Influenza, RSV, COVID, strep screens are negative. Patient will be started on oral antibiotics for dental infection. She is to follow up with a dentist. She was given warnings to return to the ER Vital Signs Vital Signs: Vital Signs Temperature 98.9 F 09/16/24 16:59 Pulse Rate 95 09/16/24 16:59 Respiratory Rate 18 09/16/24 16:59 Blood Pressure 109/70 09/16/24 16:59 Pulse Oximetry 100 09/16/24 16:59 Oxygen Delivery Room Air 09/16/24 16:59 Temperature 98.9 F 09/16/24 16:59 Pulse Rate 95 09/16/24 16:59 Respiratory Rate 18 09/16/24 16:59 Blood Pressure 109/70 09/16/24 16:59 Pulse Oximetry 100 09/16/24 16:59 Oxygen Delivery Room Air 09/16/24 16:59 Lab Data Lab results reviewed: Yes I reviewed the patient's lab results. Labs: Lab Results 09/16/24 Range/Units 20:42 Influenza A (RT-PCR) Negative (Negative) Influenza B (RT-PCR) Negative (Negative) RSV (RT-PCR) Negative (Negative) SARS-CoV-2 RNA (RT-PCR) Negative (Negative) Group A Strep (PCR) Not detected (Negative) Critical Care Time Critical Care Time Critical Care Time: No Discharge Plan Discharge Clinical Impression: Toothache Patient Disposition: Home, Self-Care Condition: Stable Instructions: Antibiotic Form, Toothache (ED) Additional Instructions: Return to the Emergency Department if you experience fever >101, increasing swelling and redness, or any other symptoms that are concerning to you Your influenza, RSV, COVID, strep swabs were negative. Take oral antibiotic as prescribed. Tylenol or Ibuprofen as needed for pain. Take oral antibiotic as prescribed Follow up with your dentist Patient Language: Latvian Prescriptions: New clindamycin HCl 300 mg capsule 300 mg PO Q6H 7 Days Qty: 28 0RF No Action azithromycin 250 mg tablet 250 mg PO DAILY 10 Days Qty: 10 0RF nitrofurantoin monohyd/m-cryst [Macrobid] 100 mg capsule 100 mg PO Q12H 5 Days Qty: 10 0RF Rx Instructions: must administer with a meal/food sulfamethoxazole-trimethoprim [Bactrim DS] 800-160 mg tablet 1 tablet PO Q12H Qty: 14 0RF metoclopramide HCl [Reglan] 10 mg tablet 10 mg PO Q6H PRN (Reason: nausea and vomiting or headache) Qty: 20 0RF ibuprofen 800 mg tablet 800 mg PO TID PRN (Reason: pain) 7 Days Qty: 21 0RF acetaminophen 500 mg tablet 1,000 mg PO TID PRN (Reason: roberto) 7 Days Qty: 42 0RF Follow-up/Referrals: PHYSICIAN,STRATEGIC MARKETING SPECIALIST [Primary Care Provider] - Noe Colbert MD [Physician] -
[2024-09-16 21:12] LABS: Strep Group A RT-PCR NOT DETECTED (Negative)
[2024-09-16 21:24] LABS: Influenza A QL RT-PCR Negative (Negative); Influenza B QL RT-PCR Negative (Negative); RSV RNA, RT-PCR Negative (Negative); SARS-CoV-2 RNA PCR Negative (Negative)
--- OUTSIDE RECORDS SUMMARY | 2024-09-16 21:47 | XMS_ITS | Referral Summary ---
Author Organization [facility] Address [address] [place] [address] Care Team Providers Care Outside Sales Representative Insurance Name Role Phone Mattie Blair RN Unavailable [phone] Source Comments [facility],non-owned Affiliates and Associated Physician Practices is amultiple site organization consisting of ambulatory clinics and hospital sitesin [place], [place], [place]. This disclosure is being madepursuant to the Care Everywhere program and may not contain all information available regarding this patient. Last updated 18.[facility] Allergies Active Allergy Reactions Criticality Noted Date [...] migh t be different from the original. [employer] form completed. Diapers refused 01/04/20 [...] place to sleep or slept in a fdc (including now)? No 12/06/2023 Sex and Gender [...] on file Medical Devices Implanted Type Area Chief Cardiopulmonary Technologist Device Identifier Shelf Expiration Date Model / Serial / Lot Stent Uret 6fr 24cm Pgtl Crv Tpr Tip Implanted:Qty: 1 on 02/23/2018 by Bhupinder Vora MD at [facility] Right: Ureter [employer] 06/08/2020 [id number] / / [id number] Procedures Procedure Name Priority Date/Time Associated Diagnosis [...] Diagnosis Comment 10/27/2019 3:07 PM CDT [facility] ([facility]) Comment:NEGATIVE FOR INTRAEP ITHELIAL LESION OR MALIGNANCY. Specimen Adequacy Comment 020 3:07 PM CDT [facility] ([facility]) Comment: Satisfactory for evaluation. Endocervical and/or squamous metaplastic cells (endocervical component) are present. Performed by Comment 10/27/2019 3:07 PM CDT [facility] ([facility]) Comment:Kelvin Pond Cytote chnologist (ASCP) Comment . 10/27/2019 3:07 PM CDT [facility] ([facility]) Note Comment 10/27/2019 3:07 PM CDT [facility] ([facility]) Comment: The Pap smear is a screening test designed to aid in the detection of premalignant and malignant conditions of the uterine cervix. It is not a diagnostic procedure and should not be used as the sole means of detecting cervical cancer. Both false-positive and false-negative reports do occur. Note Comment 10/27/2019 3:07 PM CDT [facility] ([facility]) Comment: The HPV DNA reflex criteria were not met with this specimen result therefore, no HPV testing was performed. Pathology/Cytolo gy PART OF UTERINE CERVIX / Unknown Collection / Unknown 10/25/2019 3:52 PM CDT 10/25/2019 3:55 PM CDT [facility] ([facility]) - 10/27/2019 3:07 PM CDT Performed at: [address] [place] [id number] Combatant Swimmer: Elizabeth Zhang MD, Phone: [phone] Specimen Comment: Source.............Cervix;Endocervix Specimen Comment: No. of containers..01 ThinPrep Vial Mary Carmen Silverman MD LAB - PATHOLOGY/CYTO LOGY ORDERABLES [facility] ([facility]) [address] [place] [address] * HIV-1 HIV-2 ANTIBODY + HIV P24 AG PANEL (09/22/2019 1:32 PM CDT) HIV1/2 Ab + P24 Ag Non Reactive Non Reactive 09/22/2019 2:26 PM CDT [facility] Blood BLOOD SPECIMEN / Unknown Venipuncture / Unknown 09/22/2019 1:32 PM CDT 09/22/2019 1:39 PM CDT Narrative [facility] - 09/22/2019 2:26 PM CDT No Laboratory evidence of HIV infection. Dunia Frazier MD LAB - CHEMISTRY JOLLY HOWELL [facility] [address] [place] [address] from Last 3 Months or Most Recently [...] 5:00 PM 11/09/2019 12:13 PM Care Teams Outside Sales Representative Insurance Relationship Specialty Start Date End Date Mattie Blair, RN Art Therapist 02/23/18
--- OUTSIDE RECORDS SUMMARY | 2024-09-16 21:47 | XMS_ITS | Clinical Summary ---
Author Organization [facility] Address [address] [place] [address] Care Team Providers Care Emergency Vehicle Technician Name Role Phone No, Physician Primary Care Provider [phone] Allergies Active Allergy Reactions Criticality Noted Date Comments Clindamycin Rash Medium 08/04/2014 Penicillins Itching,Rash Medium 07/28/2014 Medications PNV [id number] 1-DSS-DHA ORAL Take 1 tablet by mouth 08/06/2018 Active Active Problems Problem Noted Date Diagnosed Date ASCUS with positive high risk HPV cervical 01/19 Resolved Problems Problem Noted Date Diagnosed Date Resolved Date Cervical cerclage suture pre sent in second trimester 12/04/2018 01/19/2019 Overview (12/04/2018): Placed on 12/04/18 with [facility] Dichorionic diamniotic twin 10/12/2018 01/19/2019 Overview (11/23/2018): First Trimester: [x] Dating Criteria: 14 wk US [x] Labs: O+/I/-/-, NR [x] Genetic Screening: panorama low risk,fraternal twins male and female 2nd Trimester: [x] Anatomy ultrasound 11/23: A, echogenic focus stomach; B, incomplete face views. Referred to [facility]. 3rd Trimester: [] CBC, HIV, syphilis [...] stomach; B, incomplete face views. Referred to [facility]. 3rd Trimester: [ ] CBC, HIV, [...] on file Legal Sex Female 7:33 PM PNEUMATIC RIVETER Gender Identity Not on file Sexual Orientation Not on file Obstetrics History Para Term AB IAB SAB Ectopic Multiple Livin g Live Births 1 1 1 1 2 2 Date Outcome GA Total Labor Labor/2nd/3rd Weight Sex Type Anes PTL Jelly A1 A5 Name Clin 12/26 25w 4d 0.85 kg (1 lb 14 oz) M Vag-S pont Y Living [facility] 12/26 25w 4d 0.765 kg (1 [...] Not on file Insurance IDPA Care Teams Emergency Vehicle Technician Relationship Specialty Start Date End Date No, Physician PCP - General 01/12/17
--- OUTSIDE RECORDS SUMMARY | 2024-09-16 21:47 | XMS_ITS | Referral Summary ---
Author Organization [facility] Address [address] [place] [address] Care Team Providers Care Heel Scourer Name Role Phone No, Physician Primary Care Provider [phone] Allergies Active Allergy Reactions Criticality Noted Date Comments Clindamycin Rash Medium 08/04/2014 Penicillins Itching,Rash Medium 07/28/2014 Medications PNV [id number] 1-DSS-DHA ORAL Take 1 tablet by mouth 08/06/2018 Active Active Problems Problem Noted Date Diagnosed Date ASCUS with positive high risk HPV cervical 01/19 Resolved Problems Problem Noted Date Diagnosed Date Resolved Date Cervical cerclage suture pre sent in second trimester 12/04/2018 01/19/2019 Overview (12/04/2018): Placed on 12/04/18 with [facility] Dichorionic diamniotic twin 10/12/2018 01/19/2019 Overview (11/23/2018): First Trimester: [x] Dating Criteria: 14 wk US [x] Labs: O+/I/-/-, NR [x] Genetic Screening: panorama low risk,fraternal twins male and female 2nd Trimester: [x] Anatomy ultrasound 11/23: A, echogenic focus stomach; B, incomplete face views. Referred to [facility]. 3rd Trimester: [] CBC, HIV, syphilis screen [...] on file Legal Sex Female 7:33 PM UG DESIGNER Gender Identity Not on file Sexual Orientation [...] of Treatment Not on file Insurance IDPA * Guarantor: Anette Camargo Account Type Relation to Patient Date of Phone Billing Address Personal/Family Self [address] [place] [id number] Care Teams Heel Scourer Relationship Specialty Start Date End Date No, Physician PCP - General 01/12/17
--- OUTSIDE RECORDS SUMMARY | 2024-09-16 21:47 | XMS_ITS | Continuity of Care Document ---
Author Organization [facility] Address [address] [place] [address] Phone Care Team Providers Care Care Analyst Name Role Phone Unavailable Unavailable Unavailable Allergies, [...] 8 17:10:27 Clear Clear Final Urine Specific Mentor 8 17:10:27 1.010 1.010 - 1.030 Final [...] [facility], [address], [place], [place], [id number] , [place] tel:[phone] Urgent Care URI (chief complaint) Acute bronchitisEncounte r for screening, unspecified 8 No Information Family History Family Member Type Diagnosis Age At Onset No Information Payers Payer name Insurance type Covered democrat ID Authoriza tion(s) No Information Social History [...] Mental Status Date Cognitive Assessment Orientation - [place] ed to time, place, person, situation. Patient Care Teams Name Effective Dates (start - stop) Status Members No Information
--- OUTSIDE RECORDS SUMMARY | 2024-09-16 21:47 | XMS_ITS | Clinical Summary ---
Author Organization [facility] Address [address] [place] [address] Phone Care Team Providers Care Rn Embedded Name Role Phone Unavailable Primary Care Provider [...] on file Legal Sex Female 7:24 PM BIT SHAVER Gender Identity Not on file Sexual Orientation Not on file Last Filed Vital Signs Vital Sign Reading Time Taken Comments Blood Pressure 108/73 08/05/2014 9:54 AM BIT SHAVER Pulse 94 08/05/2014 9:54 AM BIT SHAVER Temperature 36.6 C (97.8 F) 08/05/2014 9:54 AM BIT SHAVER Respiratory Rate 16 08/05/2014 9:54 AM BIT SHAVER Oxygen Saturation 96% 08/05/2014 9:54 AM BIT SHAVER Inhaled Oxygen Concentration - - Weight 74.8 kg (164 lb 12.8 oz) 08/04/2014 2:48 PM BIT SHAVER Height 165.1 cm (5' 5 ) 08/04/2014 11:0 4 PM BIT SHAVER Body Mass Index 27.42 08/04/2014 2:48 PM BIT SHAVER Plan of Treatment Health Maintenance Due Date [...] this topic Medical Devices Implanted Type Area Rcp Device Identifier Shelf Expiration Date Model / Serial / Lot Plate Lctsrb Orbt Lt 915-2808 - [id number] Implanted:Qty: 1 on 08/04/2014 by Jaye Ragsdale DMD at [facility] Plate Left: Orbital Floor BIOMET MARLON MOCK 04/04/2019 915-2808 / / Screw Ht X-Dr Sd 1.5x4mm [id number] - [id number] Implanted:Qty: 1 on 08/04/2014 by Jaye Ragsdale DMD at [facility] Screw Left: Orbital Floor BIOMET MARLON MOCK [id number] / / Description:load 45 jun 27 1 4 Advance Directives For more information, please contact: [phone] * Full Code (Latest Code Status on File) Date Activated Date Inactivated Comments 08/04/2014 7:35 PM 08/05/2014 1:52 PM * Full Code Date Activated Date Inactivated Comments 08/04/2014 2:56 PM 08/04/2014 7:35 PM
--- OUTSIDE RECORDS SUMMARY | 2024-09-16 21:48 | XMS_ITS | Patient Health Summary ---
Author Organization [facility] TranscribeMe Address [address] [place] [address] Care Team Providers Care Open Hearth Stockyard Supervisor Name Role Phone Mattie Blair RN Unavailable [phone] Note from [facility],non-owned Affiliates and Associated Physician Practices is amultiple site organization consisting of ambulatory clinics and hospital sitesin [place], [place], [place] and [place]. This disclosure is being madepursuant to the Care Everywhere program and may not contain all information available regarding this patient. Last updated 18.[facility] Allergies * Penicillins(Urticaria,Itching) -Medium Criticality Medications * [...] Recorded Patient Health Questionnaire-2 Score 1 12/06/2023 [facility] - Occupational Stress [...] place to sleep or slept in a correction (including now)? No 12/06/2023 Sex and Gender [...] PM CDT Medical Devices Implanted Type Area Wet Mix Operator Device Identifier Shelf Expiration Date Model / Serial / Lot Stent Uret 6fr 24cm Pgtl Crv Tpr Tip Implanted:Qty: 1 on 02/23/2018 by Bhupinder Vora MD at [facility] Right: Ureter [employer]if[employer] Scimed 06/08/2020 [id number] / / [id number] Procedures * ED LACERATION REPAIR(Performed 05/15/2024) Performed [...] in third trimester, single or unspecified fetus ([facility]) * BIOPHYSICAL PROFILE W NST(Performed 11/22/2019) * CULTURE STREP B(Performed 11/22/2019) Performed for , unspecified gestational age ([facility]) * GLUCOSE PROTEIN KETONE URINE - POINT OF CAR(Performed 11/22/2019) Performed for , unspecified gestational age ([facility]) * BIOPHYSICAL PROFILE W NST(Performed 11/15/2019) Performed for Intrauterine growth restriction (IUGR) affecting care of mother, unspecified trimester, single or unspecified fetus * DOPPLER STUDIES(Performed 11/09/2019) * TYPE + SCREEN PANEL(Performed 11/08/2019) Performed for Abnormal ultrasound * CBC W AUTO DIFFERENTIAL(Performed 11/08/2019) Performed for Abnormal ultrasound * SONOGRAM - COMPLETE(Performed 11/08/2019) Performed for screening for malformation using ultrasonics ([facility]) * PAP LB RFLX HPV ASCU(Performed 10/25/2019) Performed for , unspecified gestational age ([facility]) * GLUCOSE CHALLENGE(Performed 10/25/2019) Performed for , unspecified gestational age ([facility]) * GLUCOSE PROTEIN KETONE URINE - POINT OF CAR(Performed 10/25/2019) Performed for , unspecified gestational age ([facility]) * SONOGRAM - COMPLETE(Performed 10/25/2019) * TYPE [...] Repair Date/Time: 05/15/2024 3:00 AM Performed by: Stanfodr Phillip MD Authorized by: Stanford Phillip MD Consent: Consent obtained: Verbal Consent given by: Patient Risks discussed: Infection and pain [place] protocol: Patient identity confirmed: Verbally with patient [...] a soft tissue laceration. Procedure Note Anirudh Aayla MD - 05/15/2024 PROCEDURE: XR HAND LEFT [...] 5 # /hpf 01/13/2024 2:21 AM CDT [facility] Bacteria UA None Seen None Seen 01/13/2024 2:21 AM CDT [facility] Squamous Epithelial Cells 3-5 0 - 5 /hpf 01/13/2024 2:21 AM CDT [facility] Mucus UA 1+ /LPF 01/13/2024 2:21 AM CDT [facility] Urine URINE SPECIMEN OBTAINED BY CLEAN CATCH PROCEDURE / Unknown Collection / Unknown 01/13/2024 2:03 AM CDT 01/13/2024 2:07 AM CDT Narrative [facility] - 01/13/2024 2:21 AM CDT Gerardo Petersen MD LAB - URINALYSIS ORDERABLES [facility] [address] [place] [address] * (ABNORMAL) URINALYSIS REFLEX MICROSCOPIC REFLEX CULTURE (01/13/2024 2:03 AM CDT) Only the most recent of9 resultswithin the time period is included. Color UA Yellow Straw, Yellow 01/13/2024 2:11 AM CDT [facility] Clarity UA Slt Cloudy(A) Clear 01/13/2024 2:11 AM CDT [facility] Glucose UA Negative Negative 01/13/2024 2:11 AM CDT [facility] Bilirubin UA Negative Negative 01/13/2024 2:11 AM CDT [facility] Ketone UA Negative Negative 01/13/2024 2:11 AM CDT [facility] Specific [place] UA 1.010 1.005 - 1.030 01/13/2024 2:11 AM CDT [facility] Blood UA 2+(A) Negative 01/13/2024 2:11 AM CDT [facility] pH UA 6.0 5.0 - 8.0 pH 01/13/2024 2:11 AM CDT [facility] Protein UA Negative Negative 01/13/2024 2:11 AM CDT [facility] Urobilinogen UA Negative Negative mg/dL 01/13/2024 2:11 AM CDT [facility] Nitrite UA Negative Negative 01/13/2024 2:11 AM CDT [facility] Leukocyte UA 2+(A) Negative 01/13/2024 2:11 AM CDT [facility] Urine Microscopy Urine microscopy to follow 01/13/2024 2:11 AM CDT [facility] Reflex Status Culture to follow 01/13/2024 2:11 AM CDT [facility] Urine URINE SPECIMEN OBTAINED BY CLEAN CATCH PROCEDURE / Unknown Collection / Unknown 01/13/2024 2:03 AM CDT 01/13/2024 2:07 AM CDT Narrative [facility] - 01/13/2024 2:11 AM CDT Gerardo Petersen MD LAB - URINALYSIS ORDERABLES Performing Organization Address City/[facility]/ZIP Co de Phone Number [facility] [address] [place] [address] * CULTURE URINE (01/13/2024 2:03 AM CDT) Only the most recent of6 resultswithin the time period is included. Culture Urine 10,000-50,000 CFU/mL urogenital steffi AMARILIS 01/14/2024 9:38 AM CDT [facility] Urine URINE SPECIMEN OBTAINED BY CLEAN CATCH PROCEDURE / Unknown Collection / Unknown 01/13/2024 2:03 AM CDT 01/13/2024 2:07 AM CDT Gerardo Petersen MD LAB - MICROBIOLOG Y ORDERABLES [facility] [address] [place], [place] [address] [phone] * TROPONIN-I HIGH SENSITIVE BASELINE + 1HR (01/13/2024 1:44 AM CDT) Troponin I High Sensitive <3 <=14 ng/L 01/13/2024 2:08 AM CDT [facility] Blood BLOOD SPECIMEN / Unknown Venipuncture / Unknown 01/13/2024 1:44 AM CDT 01/13/2024 1:44 AM CDT Gerardo Petersen MD LAB - CHEMISTRY O RDERABLES [facility] [address] [place] [address] * CT ABDOMEN PELVIS W CONTRAST (01/13/2024 1:41 AM CDT) Only the most recent of2 resultswithin the time period is included. Anatomical Region Laterality Modality Abdomen, Pelvis Computed Tomogra phy 01/13/2024 8:16 AM CDT Impressions 01/13/2024 8:59 AM CDT Impression: Mild wall thickening of the colon with intraluminal fluid which may indicate colitis. > Dictated by Taj Garza MD (vice president of instruction). IFaustina MD have personally reviewed and interpreted this examination/study. > Interpreting Provider: Faustina Verdin MD on 01/13/2024 8:59 AM Narrative 01/13/2024 8:59 AM CDT PROCEDURE: CT ABDOMEN PELVIS W CONTRAST, DATE/TIME OF EXAM: 01/13/2024 1:41 AM, LOCATION [facility] INDICATION: R07.89: Other chest pain R10.9: Unspecified [...] CONTRAST, DATE/TIME OF EXAM: 41:41 AM, LOCATION [facility] INDICATION: R07.89: Other chest pain R10.9: Unspecified [...] colitis. > Dictated by Taj Garza MD (vice president of instruction). I, Faustina Verdin MD have personally reviewed and interpreted this examination/study. > Interpreting Provider: Faustina Verdin MD on 01/13/2024 8:59 AM Gerardo Petersen MD CT ORDERABLES * TROPONIN-I HIGH SENSITIVE (01/12/2024 10:25 PM CDT) Troponin I High Sensitive <3 <=14 ng/L 01/12/2024 11:12 PM CDT [facility] Blood BLOOD SPECIMEN / Unknown Venipuncture / Unknown 01/12/2024 10:25 PM CDT 01/12/2024 10:40 PM CDT Gerardo Petersen MD LAB - CHEMISTRY O RDERABLES [facility] [address] [place], [place] [id number] * (ABNORMAL) CBC W AUTO DIFFERENTIAL (01/12/2024 10:25 PM CDT) Only the most recent of23 resultswithin the time period is included. WBC 7.8 4.0 - 10.7 x10E9/L 01/12/2024 11:06 PM CDT [facility] RBC Count 3.89(L) 3.90 - 5.20 x10E12/L 01/12/2024 11:06 PM CDT [facility] Hemoglobin 10.7(L) 11.9 - 15.8 g/dL 01/12/2024 11:06 PM CDT [facility] Hematocrit 34.4(L) 34.8 - 46.1 % 01/12/2024 11:06 PM CDT [facility] MCV 88.4 80.0 - 98.0 fL 01/12/2024 11:06 PM CDT [facility] MCH 27.5 26.7 - 33.6 pg 01/12/2024 11:06 PM CDT [facility] MCHC 31.1(L) 31.7 - 36.3 g/dL 01/12/2024 11:06 PM CDT [facility] RDW-CV 14.4 11.3 - 14.8 % 01/12/2024 11:06 PM CDT [facility] Platelet Count 204 150 - 420 x10E9/L 01/12/2024 11:06 PM CDT [facility] MPV 11.1 7.8 - 11.4 fL 01/12/2024 11:06 PM CDT [facility] Neutrophil % 81.6(H) 41.0 - 74.0 % 01/12/2024 11:06 PM CDT [facility] Lymphocyte % 14.2(L) 17.0 - 47.0 % 01/12/2024 11:06 PM CDT [facility] Monocyte % 3.1 3.0 - 11.0 % 01/12/2024 11:06 PM CDT [facility] Eosinophil % 0.3 0.0 - 7.0 % 01/12/2024 11:06 PM CDT [facility] Basophil % 0.3 0.0 - 1.6 % 01/12/2024 11:06 PM CDT [facility] Immature Granulocytes % 0.5 0.0 - 1.0 % 01/12/2024 11:06 PM CDT [facility] Neutrophil Absolute 6.39 1.60 - 7.50 x10E9/L 01/12/2024 11:06 PM CDT [facility] Lymphocyte Absolute 1.11 1.00 - 4.40 x10E9/L 01/12/2024 11:06 PM CDT [facility] Monocyte Absolute 0.24 0.15 - 1.00 x10E9/L 01/12/2024 11:06 PM CDT [facility] Eosinophil Absolute 0.02 0.00 - 0.60 x10E9/L 01/12/2024 11:06 PM CDT [facility] Basophil Absolute 0.02 0.00 - 0.13 x10E9/L 01/12/2024 11:06 PM CDT [facility] Blood BLOOD SPECIMEN / Unknown Venipuncture / Unknown 01/12/2024 10:25 PM CDT 01/12/2024 10:40 PM CDT Gerardo Petersen MD LAB - HEMATOLOGY ORDERABLES Performing Organization Address City/State/[facility] Co de Phone Number [facility] [address] [place] [address] * (ABNORMAL) COMPREHENSIVE METABOLIC PANEL (01/12/2024 10:25 PM CDT) Only the most recent of11 resultswithin the time period is included. [facility] Glucose 97 70 - 105 mg/dL 01/12/2024 11:09 PM CDT [facility] Sodium 138 136 - 145 mmol/L 01/12/2024 11:09 PM CDT [facility] Potassium 3.4(L) 3.5 - 5.1 mmol/L 01/12/2024 11:09 PM CDT [facility] Chloride 104 98 - 107 mmol/L 01/12/2024 11:09 PM CDT [facility] CO2 23 22 - 29 mmol/L 01/12/2024 11:09 PM CDT [facility] Calcium 9.1 8.4 - 10.4 mg/dL 01/12/2024 11:09 PM CDT [facility] Anion Gap 11 6 - 16 mmol/L 01/12/2024 11:09 PM CDT [facility] BUN 10 5.3 - 18.7 mg/dL 01/12/2024 11:09 PM CDT [facility] Creatinine 0.70 0.57 - 1.11 mg/dL 01/12/2024 11:09 PM T [facility] Alkaline Phosphatase 94 40 - 150 U/L 01/12/2024 11:09 PM CDT [facility] ALT 13 0 - 55 U/L 01/12/2024 11:09 PM CDT [facility] AST 18 5 - 34 U/L 01/12/2024 11:09 PM T [facility] Protein Total 7.0 6.4 - 8.3 gm/dL 01/12/2024 11:09 PM CDT [facility] Albumin 3.8 3.4 - 5.0 gm/dL 01/12/2024 11:09 PM CDT [facility] Bilirubin Total 1.0 0.2 - 1.2 mg/dL 01/12/2024 11:09 PM T [facility] eGFR by CKD-EPI >90 >=90 mL/min/1.7 3 m2 01/12/2024 11:09 PM T [facility] Blood BLOOD SPECIMEN / Unknown Venipuncture / Unknown 01/12/2024 10:25 PM CDT 01/12/2024 10:40 PM CDT Gerardo Petersen MD LAB - CHEMISTRY O RDERABLES [facility] [address] [place] [address] * HCG BETA BLOOD QUANTITATIVE (01/12/2024 10:25 PM CDT) Only the most recent of3 resultswithin the time period is included. hCG Quantitative <2.42 mIU/mL 01/12/20 11:10 PM CDT [facility] Blood BLOOD SPECIMEN / Unknown Venipuncture / Unknown 01/12/2024 10:25 PM CDT 01/12/2024 10:40 PM CDT Narrative [facility] - 01/12/2024 11:10 PM CDT [...] - CHEMISTRY O MADISON Performing Organization Address City/[facility] Co de Phone Number [facility] [address] [place] [address] * LIPASE BLOOD (01/12/2024 10:25 PM CDT) Only the most recent of2 resultswithin the time period is included. [facility] Lipase 8 <60 U/L 01/12/2024 11:09 PM CDT [facility] Blood BLOOD SPECIMEN / Unknown Venipuncture / Unknown 01/12/2024 10:25 PM CDT 01/12/2024 10:40 PM CDT Gerardo Petersen MD LAB - CHEMISTRY O RDSERGE Performing Organization Address [facility] Co de Phone Number [facility] [address] [place] [address] * EKG 12-LEAD (01/12/2024 10:12 PM CDT) Only the most recent of2 resultswithin the time period is included. [facility] Ventricular Rate 90 BPM [facility] Atrial Rate 90 BPM [facility] P-R Interval 156 ms [facility] QRS Duration ms 98 ms [facility]USE Q-T Interval ms 348 ms [facility]USE QTC Calculation (Bezet) 425 ms [facility] MUSE Calculated [place] 71 degrees [facility] MUSE Calculated [place] 73 degrees [facility] MUSE Calculated [place] 44 degrees [facility] M[facility] Interpretation EKG NORMAL SINUS RHYTHM WITH SINUS ARRHYTHMIA INCOMPLETE RIGHT BUNDLE BRANCH BLOCK NONSPECIFIC T WAVE ABNORMALITY ABNORMAL ECG NO PREVIOUS ECGS AVAILABLE Confirmed by DO FUENTES STEPHANIE ([id number]) on 01/13/2024 4:26:38 PM [facility] 01/12/2024 10:1 2 PM CDT 01/13/2024 4:26 PM CDT Gerardo Petersen MD ECG ORDERABLES [facility] * (ABNORMAL) DRUG SCREEN TOX LIMITED BLD PNL 3 INHOUSE (12/06/2023 10:43 AM CDT) Acetaminophen <3.0(L) 10.0 - 30.0 ug/mL 12/06/2023 11:08 AM CDT [facility] Ethanol 31.8(H) <10 mg/dL 12/06/2023 11:08 AM CDT [facility] Salicylate <5.0(L) 15.0 - 30.0 mg/dL 12/06/2023 11:08 AM CDT [facility] Blood BLOOD SPECIMEN / Unknown Venipuncture / Unknown 12/06/2023 10:43 AM CDT 12/06/2023 10:48 AM CDT Narrative [facility] - 12/06/2023 11:08 AM CDT [...] - CHEMISTRY O MADISON Performing Organization Address City/[facility]/ZIP Co de Phone Number [facility] [address] [place] [address] * MAGNESIUM BLOOD (12/06/2023 10:43 AM CDT) Only the most recent of8 resultswithin the time period is included. Magnesium 2.1 1.6 - 2.6 mg/dL 12/06/2023 11:08 AM CDT [facility] Blood BLOOD SPECIMEN / Unknown Venipuncture / Unknown 12/06/2023 10:43 AM CDT 12/06/2023 10:48 AM CDT Santos Chen MD LAB - CHEMISTRY O MADISON Performing Organization Address [facility] de Phone Number [facility] [address] [place] [address] * HCG URINE QUALITATIVE (12/06/2023 5:56 AM CDT) Only the most recent of2 resultswithin the time period is included. Pathologist [facility] hCG Qualitative Urine Negative Negative 12/06/2023 6:04 AM CDT [facility] Urine URINE / Unknown Collection / Unknown 12/06/2023 5:56 AM CDT 12/06/2023 5:57 AM CDT Narrative [facility] - 12/06/2023 6:04 AM CDT Specimens containing human anti-mouse antibodies may exhibit false positive or false negative results. If qualitative interpretation is inconsistent with clinical evaluation, consider confirmation by an alternative hCG method. Torrie Yung DO LAB - URINALYSIS ORDERABLES Performing Organization Address [facility] Co de Phone Number [facility] [address] [place] [address] * (ABNORMAL) URINE DRUG SCREEN IMMUNOASSAY (12/06/2023 5:56 AM CDT) Only the most recent of4 resultswithin the time period is included. Amphetamines Screen Urine Not detected Not detected 12/06/2023 6:13 AM CDT [facility] Barbiturates Screen Urine Not detected Not detected 12/06/2023 6:13 AM CDT [facility] Benzodiazepines Screen Urine Not detected Not detected 12/06/2023 6:13 AM CDT [facility] Cannabinoids Screen Urine Detected(A) Not detected 12/06/2023 6:13 AM CDT [facility] Cocaine Screen Urine Not detected Not detected 12/06/2023 6:13 AM CDT [facility] Fentanyl Urine Not detected Not detected 12/06/2023 6:13 AM CDT [facility] Methadone Screen Urine Not detected Not detected 12/06/2023 6:13 AM CDT [facility] Opiate Screen Urine Not detected Not detected 12/06/2023 6:13 AM CDT [facility] Phencyclidine Screen Urine Not detected Not detected 12/06/2023 6:13 AM CDT [facility] Urine URINE / Unknown Collection / Unknown 12/06/2023 5:56 AM CDT 12/06/2023 5:57 AM CDT [facility] - 12/06/2023 6:13 AM CDT This [...] DO LAB - URINE CHEMI STRY ORDERABLES [facility] [address] [facility] [place] [address] * (ABNORMAL) CBC W/O DIFFERENTIAL (01/24/2023 3:23 AM CDT) Only the most recent of3 resultswithin the time period is included. Pathologist [facility] WBC 10.4 4.4 - 10.7 x10E9/L 01/24/2023 3:57 AM CDT [facility] RBC 3.42(L) 3.80 - 5.20 x10E12/L 01/24/2023 3:57 AM CDT [facility] Hemoglobin 10.4(L) 12.0 - 15.6 gm/dL 01/24/2023 3:57 AM CDT [facility] Hematocrit 32.0(L) 35.9 - 45.5 % 01/24/2023 3:57 AM CDT [facility] MCV 93.6 80.7 - 98.3 fl 01/24/2023 3:57 AM CDT [facility] MCH 30.4 26.7 - 34.0 pg 01/24/2023 3:57 AM CDT [facility] MCHC 32.5 30.8 - 35.9 gm/dL 01/24/2023 3:57 AM CDT [facility] Platelet Count 183 153 - 416 x10E9/L 01/24/2023 3:57 AM CDT [facility] RDW-CV 12.3 12.1 - 14.9 % 01/24/2023 3:57 AM CDT [facility] MPV 11.6 9.4 - 12.9 fl 01/24/2023 3:57 AM CDT [facility] Blood BLOOD SPECIMEN / Unknown Lab Venipuncture / Unknown 01/24/2023 3:23 AM CDT 01/24/2023 3:46 AM CDT Idris Hurt MD LAB - HEMATOLOGY ORD ERABLES [facility] [address] [place] [address] * (ABNORMAL) BASIC METABOLIC PANEL (CALCIUM TOTAL) (01/23/2023 2:54 AM CDT) Only the most recent of3 resultswithin the time period is included. Pathologist [facility] Glucose 99 70 - 105 mg/dL 01/23/2023 4:33 AM CDT [facility] Sodium 138 136 - 145 mmol/L 01/23/2023 4:33 AM CDT [facility] Potassium 3.4(L) 3.5 - 5.1 mmol/L 01/23/2023 4:33 AM CDT [facility] Chloride 106 98 - 107 mmol/L 01/23/2023 4:33 AM CDT [facility] CO2 24 22 - 29 mmol/L 01/23/2023 4:33 AM CDT [facility] Calcium 8.4 8.4 - 10.4 mg/dL 01/23/2023 4:33 AM CDT [facility] Anion Gap 8 6 - 16 mmol/L 01/23/2023 4:33 AM CDT [facility] BUN 5(L) 5.3 - 18.7 mg/dL 01/23/2023 4:33 AM CDT [facility] Creatinine 0.56(L) 0.57 - 1.11 mg/dL 01/23/2023 4:33 AM CDT [facility] eGFR by CKD-EPI >90 >=90 mL/min/1.7 3 m2 01/23/2023 4:33 AM CDT [facility] Blood BLOOD SPECIMEN / Unknown Lab Venipuncture / Unknown 01/23/2023 2:54 AM CDT 01/23/2023 4:03 AM CDT Idris Hurt MD LAB - CHEMISTRY JOLLY HOWELL Performing Organization Address City/[facility]/ZIP Co de Phone Number [facility] [address] [place] [phone] * CULTURE BLOOD (01/22/2023 2:22 PM CDT) Only the most recent of6 resultswithin the time period is included. Culture No growth day 5 AMARILIS 01/27/2023 5:02 PM CDT [facility] Blood PERIPHERAL BLOOD / Unknown Lab Venipuncture / Unknown 01/22/2023 2:22 PM CDT 01/22/2023 2:36 PM CDT Idris Hurt MD LAB - MICROBIOLOGY O RDERABLES [facility] [address] [place] [address], [facility] [phone] * PHOSPHORUS BLOOD (01/22/2023 5:08 AM CDT) Phosphorus 3.7 2.3 - 4.7 mg/dL 01/22/2023 6:08 AM CDT [facility] Blood BLOOD SPECIMEN / Unknown Lab Venipuncture / Unknown 01/22/2023 5:08 AM CDT 01/22/2023 5:45 AM CDT Idris Hurt MD LAB - CHEMISTRY JOLLY HOWELL Performing Organization Address [facility] de Phone Number [facility] [address] [place], [place] [id number] * LACTIC ACID BLOOD (01/22/2023 5:08 AM CDT) Only the most recent of2 resultswithin the time period is included. Lactic Acid 0.8 <=2 mmol/L 01/22/2023 6:17 AM CDT [facility] Blood BLOOD SPECIMEN / Unknown Lab Venipuncture / Unknown 01/22/2023 5:08 AM CDT 01/22/2023 5:46 AM CDT Idris Hurt MD LAB - CHEMISTRY JOLLY HOWELL Performing Organization Address [facility] de Phone Number [facility] [address] [place] [phone] * LACTIC ACID BLOOD REFLEX TO REPEAT (01/21/2023 1:07 AM CDT) Lactic Acid 1.6 <=2 mmol/L 01/21/2023 1:32 AM CDT [facility] Blood BLOOD SPECIMEN / Unknown Venipuncture / Unknown 01/21/2023 1:07 AM CDT 01/21/2023 1:19 AM CDT Mayte Hill DO LAB - CHEMISTRY ORDE RABLES [facility] [address] [place] [address] * HCG URINE QUALITATIVE - POCT (IP) INTERFACED (09/21/2021 1:50 PM OCEANOGRAPHY TEACHER) Only the most recent of3 resultswithin the time period is included. HCG Qual Urine Negative Negative 09/21/2021 1:56 PM OCEANOGRAPHY TEACHER [facility] Urine URINE / Unknown 09/21/2021 1 :50 PM OCEANOGRAPHY TEACHER 09/21/2021 1:55 PM OCEANOGRAPHY TEACHER Stacy Garza MD LAB - POINT OF CARE ORDERABLES Performing Organization Address City/[facility] Co de Phone Number [facility] [address] [place] [address] * US PELVIS W TRANSVAG NON OB [...] resultswithin the time period is included. Pathologist [facility] Chlamydia Amplified Probe Negative Negative 05/03/2021 5:30 AM CDT [facility] Amplified Probe Negative Negative 05/03/2021 5:30 AM CDT [facility] MICROBIOLOGY Microbiology ENTIRE ENDOCERVIX / Unknown Collection / Unknown 05/02/2021 11:46 AM CDT 05/02/2021 12:05 PM CDT Narrative [facility] MICROBIOLOGY - 05/03/2021 5:30 AM CDT Results based on detection/no detection of ribosomal RNA by amplified method. Germain Thornton MD LAB - MICROBIOLOGY O RDERABLES [facility] MICROBIOLOGY [address] [phone] * TRICHOMONAS RAPID TEST (05/02/2021 11:46 AM CDT) Only the most recent of4 resultswithin the time period is included. Trichomonas Rapid Test Negative Negative 05/02/2021 12:23 PM CDT [facility] Microbiology VAGINAL SWAB / Unknown Collection / Unknown 05/02/2021 11:46 AM CDT 05/02/2021 12:05 PM CDT Germain Thornton MD LAB - MICROBIOLOGY O RDERABLES [facility] [address] [place] [address] * HCG URINE QUALITATIVE - POINT OF CARE (01/04/2020 11:16 AM CDT) Only the most recent of2 resultswithin the time period is included. Pathologist [facility] HCG Qual Urine Negative Negative [facility] POCT TESTING QC Verified Yes Yes [facility] POC T TESTING Urine URINE / Unknown 01/04/2020 1 1:16 AM CDT Debbie Retana CORPORATE CONSULTANT-HOST LAB - POINT OF C ARE ORDERABLES Performing Organization Address City/[facility]/ZIP Co de Phone Number [facility] POCT TESTING [address] [place] [address] * IMAGING RADIOLOGY XRAY RESULTS ORDER (11/30/2019 6:48 PM CDT) Only the most recent of4 resultswithin the time period is included. Anatomical Region Laterality Modality Other Narrative 11/30/2019 6:48 PM CDT Ordered by an unspecified provider. Scanned Document IMAGING * (ABNORMAL) HGB HCT PANEL (11/26/2019 5:33 AM CDT) Only the most recent of2 resultswithin the time period is included. Pathologist [facility] Hemoglobin 9.5(L) 12.0 - 15.6 gm/dL 11/26/2019 6:08 AM CDT [facility] Hematocrit 29.8(L) 35.9 - 45.5 % 11/26/2019 6:08 AM CDT [facility] Blood BLOOD SPECIMEN / Unknown Lab Venipuncture / Unknown 11/26/2019 5:33 AM CDT 11/26/2019 6:02 AM CDT Anita Alvarez MD LAB - HEMATOLOGY ORDERABLES Performing Organization Address City/[facility]/ZIP Co de Phone Number [facility] [address] [place] [address] * GROSS + MICRO EXAM (STL) (11/25/2019 2:53 PM CDT) Pathologist [facility] Case Report Surgical Pathology Report Case: [id number] Authorizing Provider: Jojo Orlando MD Collected: 11/25/2019 02:53 PM Ordering Location: [facility] LD Received: 11/26/2019 06:50 AM Pathologist: Angelique Moreland MD Specimen: Placenta 3rd Trimester 11/29/2019 2:38 PM [facility] Final Diagnosis Umbilical cord, vaginal delivery: - Three-vessel cord with no histopathologic abnormality membranes, vaginal delivery: - No significant histopathologic abnormality Placenta, vaginal delivery: - Mature villous morphology - Placental weight and -placental ratio within normal limits for gestational age 0511/29/2019 2:38 PM [facility] Clinical History The patient is a 23-year-old, woman who presents at 36 weeks and 3 days of gestation with oligohydramnios and intrauterine growth restriction restriction. Operative procedure: Vaginal delivery of a viable male infant with Apgars of 7 and 8 weighing 2360 g. 11/29/2019 2:38 PM [facility] Gross Description Received in formalin, specimen [...] Placenta weight after trimming is 360 gm. Home Energy Consultant Supervisor sections submitted as follows: A1 - Umbilical cord and membranes A2-A3 - Placenta. DS/scs 11/29/2019 2:38 PM [facility] Microscopic Description Microscopic examination substantiates the final diagnosis. 11/29/2019 2:38 PM [facility] Disclaimer All histochemical and/or immunohistochemical results are interpreted with controls that demonstrate appropriate staining reactions before reporting results. Note on use of immunocytochemistry reagents: This test was developed and its performance characteristic determined by [facility], Department of Laboratory Medicine. It has not [...] interpreted with caution. 11/29/2019 2:38 PM CDT [facility] Embedded Images 11/29/2019 2:38 PM CDT [facility] Pathology/Cytolo gy ENTIRE PLACENTA / Unknown Collection / Unknown 11/25/2019 2:53 PM CDT 11/26/2019 6:50 AM CDT Jojo Orlando MD LAB - PATHOLOGY/CYTO LOGY ORDERABLES [facility] [address] [place] [address] * (ABNORMAL) BLOOD GASES CORD FREDDIE (11/25/2019 [...] 11/25/2019 12:45 PM CDT [facility] RESP THERAPY Patient Appointment Coordinator ID [id number] 11/25/2019 12:45 PM CDT [facility]ER[facility] Blood CORD BLOOD SPECIMEN / Unknown 11/25/2019 12:33 PM CDT 11/25/2019 12:33 PM CDT Jojo Orlando MD LAB - BLOOD GASES OR DERABLES Performing Organization Address City/[facility]/ZIP Co de Phone Number [facility] RESP THERAPY [address] [place] [address] * (ABNORMAL) BLOOD GASES CORD ARTERIAL (11/25/2019 [...] 11/25/2019 12:46 PM CDT [facility] RESP THERAPY Patient Appointment Coordinator ID [id number] 11/25/2019 12:46 PM CDT [facility] RESP THERAPY Blood, arterial CORD BLOOD SPECIMEN / Unknown 11/25/2019 12:33 PM CDT 11/25/2019 12:33 PM CDT Jojo Orlando MD LAB - BLOOD GASES OR DERABLES Performing Organization Address City/[facility]/ZIP Co de Phone Number [facility] RESP THERAPY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
--- OUTSIDE RECORDS SUMMARY | 2024-09-16 21:48 | XMS_ITS | Clinical Summary ---
Author Organization [facility] [employer] Address [address] [place] [address] Care Team Providers Care Electronic Organ Technician Name Role Phone Mattie Blair RN Unavailable [phone] Source Comments [facility] [employer],non-owned Affiliates and Associated Physician Practices is amultiple site organization consisting of ambulatory clinics and hospital sitesin [place], [place], [place] and [place]. This disclosure is being madepursuant to the Care Everywhere program and may not contain all information available regarding this patient. Last updated 18.[facility] [employer] Allergies Active Allergy Reactions Criticality Noted Date [...] migh t be different from the original. [employer] [employer] form completed. Diapers refused 01/04/20 [...] Recorded Patient Health Questionnaire-2 Score 1 12/06/2023 [facility] - Occupational [...] this topic Medical Devices Implanted Type Area Optical Glass Silverer Device Identifier Shelf Expiration Date Model / Serial / Lot Stent Uret 6fr 24cm Pgtl Crv Tpr Tip Implanted:Qty: 1 on 02/23/2018 by Bhupinder Vora MD at [facility] Right: Ureter fishfishme Scimed 06/08/2020 [id number] / / [id number] Procedures Procedure Name Priority Date/Time Associated Diagnosis [...] Diagnosis Comment 10/27/2019 3:07 PM CDT [facility] ([facility]) Comment:NEGATIVE FOR INTRAEP ITHELIAL LESION OR MALIGNANCY. Specimen Adequacy Comment 020 3:07 PM CDT [facility] ([facility]) Comment: Satisfactory for evaluation. Endocervical and/or squamous metaplastic cells (endocervical component) are present. Performed by Comment 10/27/2019 3:07 PM CDT [facility] ([facility]) Comment:Milvia Castellano chnologist (ASCP) Comment . 10/27/2019 3:07 PM CDT [facility] ([facility]) Note Comment 10/27/2019 3:07 PM CDT [facility] ([facility]) Comment: The Pap smear is a screening test designed to aid in the detection of premalignant and malignant conditions of the uterine cervix. It is not a diagnostic procedure and should not be used as the sole means of detecting cervical cancer. Both false-positive and false-negative reports do occur. Note Comment 10/27/2019 3:07 PM CDT [facility] ([facility]) Comment: The HPV DNA reflex criteria were not met with this specimen result therefore, no HPV testing was performed. Pathology/Cytolo gy PART OF UTERINE CERVIX / Unknown Collection / Unknown 10/25/2019 3:52 PM CDT 10/25/2019 3:55 PM CDT Narrative [facility] ([facility]) - 10/27/2019 3:07 PM CDT Performed at: [address] [id number] Manager Php: Elizabeth Zhang MD, Phone: [phone] Specimen Comment: Source.............Cervix;Endocervix Specimen Comment: No. of containers..01 ThinPrep Vial Mary Carmen Silverman MD LAB - PATHOLOGY/CYTO LOGY ORDERABLES [facility] ([facility]) [address] [place] [address] * HIV-1 HIV-2 ANTIBODY + HIV P24 AG PANEL (09/22/2019 1:32 PM CDT) HIV1/2 Ab + P24 Ag Non Reactive Non Reactive 09/22/2019 2:26 PM CDT [facility] Blood BLOOD SPECIMEN / Unknown Venipuncture / Unknown 09/22/2019 1:32 PM CDT 09/22/2019 1:39 PM CDT Narrative [facility] - 09/22/2019 2:26 PM CDT No Laboratory evidence of HIV infection. Dunia Frazier MD LAB - CHEMISTRY JOLLY HOWELL [facility] [address] [place] [address] from Last 3 Months or [...] 5:00 PM 11/09/2019 12:13 PM Care Teams Electronic Organ Technician Relationship Specialty Start Date End Date Mattie Blair, RN Tube Building Machine Operator 02/23/18
[2024-09-16] MEDS: KETOROLAC 30 MG/ML VIAL (*BKC) IM (22:46)
[2024-09-16] MEDS: ACETAMINOPHEN 500 MG TABLET 1000 MG PO (22:47)
== END 2024-09-16 22:50 | disposition home or self-care (01) ==
PROVIDERS: Emergency Provider Physician Assistant
DX: K08.89 Other specified disorders of teeth and supporting structures (principal); Z20.822 Contact with and (suspected) exposure to COVID-19; Z86.2 Personal history of diseases of the blood and blood-forming organs and certain disorders involving the immune mechanism; Z87.440 Personal history of urinary (tract) infections
CPT/HCPCS: 87637; 87651; 96372; 99283; A9270; J1885

== ENCOUNTER 2024-10-09 19:55 | Emergency (ER) | payer BC, SELFPAY ==
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
--- NOTE | ~2024-10-09 | CT_ITS ---
History: Syncope PROCEDURE: CT head without contrast. COMPARISON: 05/30/2022 TECHNIQUE: Axial imaging of the head performed from the skull base to the vertex without IV contrast. Sagittal a nd coronal reformations obtained. Examination is somewhat limited secondary to motion artifact. DLP: 908 mGy-cm FINDINGS: The ventricles are normal in size, shape and position. There is no mass, mass effect or midline shift. There is no abnormal extra-axial fluid collection or intracranial hemorrhage. Visualized paranasal sinuses are clear. The mastoid air cells are well aerated. No acute displaced fractures within the overlying cranium. Impression: No acute intracranial hemorrhage or suspicious mass effect. Reviewed, dictated and finalized at location A. Impression: No acute intracranial hemorrhage or suspicious mass effect.
--- OUTSIDE RECORDS SUMMARY | 2024-10-09 19:57 | XMS_ITS | Referral Summary ---
Author Organization [facility] Address [address] [place] [phone] Care Team Providers Care Industrial Laborer Name Role Phone No, Physician Primary Care Provider [phone] Allergies Active Allergy Reactions Criticality Noted Date Comments Clindamycin Rash Medium 08/04/2014 Penicillins Itching,Rash Medium 07/28/2014 Medications PNV [id number] 1-DSS-DHA ORAL Take 1 tablet by mouth 08/06/2018 Active Active Problems Problem Noted Date Diagnosed Date ASCUS with positive high risk HPV cervical 01/19 Resolved Problems Problem Noted Date Diagnosed Date Resolved Date Cervical cerclage suture pre sent in second trimester 12/04/2018 01/19/2019 Overview (12/04/2018): Placed on 12/04/18 with [facility] Dichorionic diamniotic twin 10/12/2018 01/19/2019 Overview (11/23/2018): First Trimester: [x] Dating Criteria: 14 wk US [x] Labs: O+/I/-/-, NR [x] Genetic Screening: panorama low risk,fraternal twins male and female 2nd Trimester: [x] Anatomy ultrasound 11/23: A, echogenic focus stomach; B, incomplete face views. Referred to [facility]. 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
--- OUTSIDE RECORDS SUMMARY | 2024-10-09 19:57 | XMS_ITS | Clinical Summary ---
Author Organization [facility] Address [address] [place] [address] Phone Care Team Providers Care Composer Teaching Artist Name Role Phone Unavailable Primary Care Provider [...] on file Legal Sex Female 7:24 PM KNITTER OPERATOR Gender Identity Not on file Sexual Orientation Not on file Last Filed Vital Signs Vital Sign Reading Time Taken Comments Blood Pressure 108/73 08/05/2014 9:54 AM KNITTER OPERATOR Pulse 94 08/05/2014 9:54 AM KNITTER OPERATOR Temperature 36.6 C (97.8 F) 08/05/2014 9:54 AM KNITTER OPERATOR Respiratory Rate 16 08/05/2014 9:54 AM KNITTER OPERATOR Oxygen Saturation 96% 08/05/2014 9:54 AM KNITTER OPERATOR Inhaled Oxygen Concentration - - Weight 74.8 kg (164 lb 12.8 oz) 08/04/2014 2:48 PM KNITTER OPERATOR Height 165.1 cm (5' 5 ) 08/04/2014 11:0 4 PM KNITTER OPERATOR Body Mass Index 27.42 08/04/2014 2:48 PM KNITTER OPERATOR Plan of Treatment Health Maintenance Due Date Last Done Comments DTAP/TDAP/TD VACCINES (1 - Tdap) 2013 HEPATITIS B VACCINES (1 of 3 - 19+ 3-dose series) 2013 CERVICAL CANCER SCREENING 12/27/2015 PAP SMEAR 12/27/2015 PAP SMEAR 12/27/2015 INFLUENZA VACCINE (#1) 2024 HPV VACCINES Aged Out No longer eligi ble based on patient's age to complete this topic PNEUMOCOCCAL VACCINE 0-49 YEARS Aged Out No longer eligible based on patient's age to complete this topic Medical Devices Implanted Type Area It Senior Analyst Device Identifier Shelf Expiration Date Model / Serial / Lot Plate Lctsrb Orbt Lt 915-2808 - [id number] Implanted:Qty: 1 on 08/04/2014 by Jaye Ragsdale DMD at [facility] Plate Left: Orbital Floor BIOMET MARLON MOCK 04/04/2019 [id number] / / Screw Ht X-Dr Sd 1.5x4mm [id number] - [id number] Implanted:Qty: 1 on 08/04/2014 by Jaye Ragsdale DMD at [facility] Screw Left: Orbital Floor BIOMET RANDYFNILES - PRUDENCE MOCK [id number] / / Description:load 45 jun 27 1 4 Advance Directives For more information, please contact: [phone] * Full Code (Latest Code Status on File) Date Activated Date Inactivated Comments 08/04/2014 7:35 PM 08/05/2014 1:52 PM * Full Code Date Activated Date Inactivated Comments 08/04/2014 2:56 PM 08/04/2014 7:35 PM
--- OUTSIDE RECORDS SUMMARY | 2024-10-09 19:57 | XMS_ITS | Clinical Summary ---
Author Organization [facility] Address [address] [place] [address] Care Team Providers Care Help Desk Agent Name Role Phone No, Physician Primary Care Provider [phone] Allergies Active Allergy Reactions Criticality Noted Date Comments Clindamycin Rash Medium 08/04/2014 Penicillins Itching,Rash Medium 07/28/2014 Medications PNV [id number] 1-DSS-DHA ORAL Take 1 tablet by mouth 08/06/2018 Active Active Problems Problem Noted Date Diagnosed Date ASCUS with positive high risk HPV cervical 01/19 Resolved Problems Problem Noted Date Diagnosed Date Resolved Date Cervical cerclage suture pre sent in second trimester 12/04/2018 01/19/2019 Overview (12/04/2018): Placed on 12/04/18 with [facility] Dichorionic diamniotic twin 10/12/2018 01/19/2019 Overview (11/23/2018): First Trimester: [x] Dating Criteria: 14 wk US [x] Labs: O+/I/-/-, NR [x] Genetic Screening: panorama low risk,fraternal twins male and female 2nd Trimester: [x] Anatomy ultrasound 11/23: A, echogenic focus stomach; B, incomplete face views. Referred to [facility]. 3rd Trimester: [] CBC, HIV, syphilis [...] stomach; B, incomplete face views. Referred to [facility]. 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
--- OUTSIDE RECORDS SUMMARY | 2024-10-09 19:57 | XMS_ITS | Continuity of Care Document ---
Author Organization [facility] Address [address] [place] [address] Phone Care Team Providers Care Telecine Operator Name Role Phone Unavailable Unavailable Unavailable Allergies, Adverse Reactions, Alerts Substance Reaction Status Criticality PENICILLIN Active No Information Medications Medication Instructions Dosage Effective Dates (start - stop) Status Comments Guaifenesin-DM BUCCAL take one tsp po ev roscoe 6 hours - Active doxycycline hyclate 100 mg capsule take 1 capsule by oral route every 12 hours 100 MG - Active Procedures Procedure Date OFFICE/OUTPATIENT VISIT, [...] 8 17:10:27 Clear Clear Final Urine Specific [place] 8 17:10:27 1.010 1.010 - 1.030 Final [...] [facility] [address], [place], [place], [id number] , [place] tel:[phone] Urgent Care URI (chief complaint) Acute bronchitisEncounte r for screening, unspecified 8 No Information Family History Family Member Type Diagnosis Age At Onset No Information Payers Payer name Insurance type Covered libertarian ID Authoriza tion(s) No Information Social History [...] Mental Status Date Cognitive Assessment Orientation - [place] ed to time, place, person, situation. Patient Care Teams Name Effective Dates (start - stop) Status Members No Information
--- OUTSIDE RECORDS SUMMARY | 2024-10-09 19:58 | XMS_ITS | Clinical Summary ---
Author Organization [facility] Address [address] [place] [address] Care Team Providers Care Elevator Constructor Name Role Phone Mattie Blair RN Unavailable [phone] Source Comments [facility],non-owned Affiliates and Associated Physician Practices is amultiple site organization consisting of ambulatory clinics and hospital sitesin [place], [place], [place] and [place]. This disclosure is being madepursuant to the Care Everywhere program and may not contain all information available regarding this patient. Last updated 18.[facility] Allergies Active Allergy Reactions Criticality Noted Date [...] migh t be different from the original. [employer] form completed. Diapers refused 01/04/20 [...] Recorded Patient Health Questionnaire-2 Score 1 12/06/2023 [facility] - Occupational [...] place to sleep or slept in a mcfp (including now)? No 12/06/2023 Sex and Gender [...] complete this topic MENINGOCOCCAL (Group B) VACCINE SHARED DECISION-MAKING Aged Out No longer eligible based on patient's age to complete this topic MENINGOCOCCAL GROUPS A/C/Y/W VACCINE Aged Out No longer eligible based on patient's age to complete this topic PNEUMOCOCCAL VACCINE Aged Out No long er eligible based on patient's age to complete this topic Medical Devices Implanted Type Area Charge Master Coordinator Device Identifier Shelf Expiration Date Model / Serial / Lot Stent Uret 6fr 24cm Pgtl Crv Tpr Tip Implanted:Qty: 1 on 02/23/2018 by Bhupinder Vora MD at [facility] Right: Ureter Bacterioscan Scimed 06/08/2020 [id number] / / [id number] Procedures Procedure Name Priority Date/Time Associated Diagnosis Comments PAP LB RFLX HPV ASCU Routine 10/25/2019 3:52 PM CDT , unspecified gestational age HIV-1 HIV-2 ANTIBODY + HIV P24 AG PANEL Routine 09/22/2019 1:32 PM CDT Generalized abdominal pain from Last 3 Months or Most Recently Relevant to Health Maintenance Results * PAP LB RFLX HPV ASCU (10/25/2019 3:52 PM CDT) Diagnosis Comment 10/27/2019 3:07 PM CDT [facility] ([facility]) Comment:NEGATIVE FOR INTRAEP ITHELIAL LESION OR MALIGNANCY. Specimen Adequacy Comment 020 3:07 PM CDT [facility] ([facility]) Comment: Satisfactory for evaluation. Endocervical and/or squamous metaplastic cells (endocervical component) are present. Performed by Comment 10/27/2019 3:07 PM CDT [facility] ([facility]) Comment:Milvia Castellano chnologist (ASCP) Comment . 10/27/2019 3:07 PM CDT [facility] ([facility]) Note Comment 10/27/2019 3:07 PM CDT [facility] ([facility]) Comment: The Pap smear is a screening test designed to aid in the detection of premalignant and malignant conditions of the uterine cervix. It is not a diagnostic procedure and should not be used as the sole means of detecting cervical cancer. Both false-positive and false-negative reports do occur. Note Comment 10/27/2019 3:07 PM CDT [facility] ([facility]) Comment: The HPV DNA reflex criteria were not met with this specimen result therefore, no HPV testing was performed. Pathology/Cytolo gy PART OF UTERINE CERVIX / Unknown Collection / Unknown 10/25/2019 3:52 PM CDT 10/25/2019 3:55 PM CDT Narrative [facility] ([facility]) - 10/27/2019 3:07 PM CDT Performed at: [facility] [address] [id number] Streetcar Repairer Helper: Elizabeth Zhang MD, Phone: [phone] Specimen Comment: Source.............Cervix;Endocervix Specimen Comment: No. of containers..01 ThinPrep Vial Mary Carmen Silverman MD LAB - PATHOLOGY/CYTO LOGY ORDERABLES [facility] ([facility]) [address] [place] [address] * HIV-1 HIV-2 ANTIBODY + HIV P24 AG PANEL (09/22/2019 1:32 PM CDT) HIV1/2 Ab + P24 Ag Non Reactive Non Reactive 09/22/2019 2:26 PM CDT [facility] Blood BLOOD SPECIMEN / Unknown Venipuncture / Unknown 09/22/2019 1:32 PM CDT 09/22/2019 1:39 PM CDT Narrative [facility] - 09/22/2019 2:26 PM CDT No Laboratory evidence of HIV infection. Dunia Frazier MD LAB - CHEMISTRY JOLLY HOWELL [facility] [address] [place] [address] from Last 3 Months or [...] 5:00 PM 11/09/2019 12:13 PM Care Teams Elevator Constructor Relationship Specialty Start Date End Date Mattie Blair, RN Tour Sales Representative 02/23/18
[2024-10-09 20:16] VITALS: BP 138/83; PULSE 115; RESP 16; TEMP 36.3; O2SAT 100
--- NOTE | 2024-10-09 21:26 | ECG_ITS ---
Test Date: 2024-10-09 21:45:51 Measurements Intervals Barrett Rate: 83 P: 62 RI: 169 QRS: 63 QRSD: 106 T: 46 QT: 382 QTc: 451 Interpretive Statements SINUS RHYTHM INCOMPLETE RIGHT BUNDLE BRANCH BLOCK [90+ ms QRS DURATION, TERMINAL R IN V1/V2, 40+ ms S IN I/aVL/V4/V5/V6] ABNORMAL ECG Electronically Signed On 10-10-2024 07:41:59 CDT by Cedric Roach M.D.
--- NOTE | 2024-10-09 22:00 | PC.NURSE ---
pt refused covid/flu/rsv swab. PA made aware
[2024-10-09 22:06] LABS: Basophils Percent Auto 0.3 % (0.2-1.2); Eosinophils Absolute Auto 0.1 K/mm3 (0-0.3); Eosinophils Percent Auto 0.5 % (0-4.4); Hemoglobin 12.3 g/dL (12.0-15.0); Immature Granulocyte Absolute 0.05 K/mm3 (0.00-0.031); Immature Granulocyte Percent A 0.5 % (0-0.5); Lymphocytes Absolute Auto 1.88 K/mm3 (0.9-3.2); Lymphocytes Percent Auto 18.1 % (18.3-44.2); Mean Corpuscular HGB Conc 32.4 g/dl (32-36); Mean Corpuscular Hemoglobin 28.2 pg (26-34); Mean Corpuscular Volume 87.2 fl (80-100); Mean Platelet Volume 9.7 fl (7.4-10.4); Monocytes Absolute Auto 0.3 K/mm3 (0.1-0.6); Monocytes Percent Auto 2.6 % (2.6-8.5); Neutrophils Absolute Auto 8.1 K/mm3 (1.3-6.7); Platelet Count Result 256 k/mm3 (150-375); Red Blood Count 4.36 M/mm3 (4.2-5.4); Red Cell Distribution Width 15.9 % (11.5-14.5); White Blood Count 10.4 K/mm3 (4.5-10.0)
--- OUTSIDE RECORDS SUMMARY | 2024-10-09 22:07 | XMS_ITS | Continuity of Care Document ---
Author Organization [facility] Address [address] [place] [address] Phone Care Team Providers Care Color Tester Name Role Phone Unavailable Unavailable Unavailable Allergies, [...] 8 17:10:27 Clear Clear Final Urine Specific [facility] 8 17:10:27 1.010 1.010 - 1.030 Final [...] [facility], [address], [place], [place], [id number] , [place] tel:[phone] Urgent Care URI (chief complaint) Acute bronchitisEncounte [...] Mental Status Date Cognitive Assessment Orientation - [place] ed to time, place, person, situation. Patient Care Teams Name Effective Dates (start - stop) Status Members No Information
--- OUTSIDE RECORDS SUMMARY | 2024-10-09 22:07 | XMS_ITS | Referral Summary ---
Author Organization [facility] Address [address] [place] [address] Care Team Providers Care Truck Driver Instructor Name Role Phone No, Physician Primary Care Provider [phone] Allergies Active Allergy Reactions Criticality Noted Date Comments Clindamycin Rash Medium 08/04/2014 Penicillins Itching,Rash Medium 07/28/2014 Medications PNV [id number] 1-DSS-DHA ORAL Take 1 tablet by mouth 08/06/2018 Active Active Problems Problem Noted Date Diagnosed Date ASCUS with positive high risk HPV cervical 01/19 Resolved Problems Problem Noted Date Diagnosed Date Resolved Date Cervical cerclage suture pre sent in second trimester 12/04/2018 01/19/2019 Overview (12/04/2018): Placed on 12/04/18 with [facility] Dichorionic diamniotic twin 10/12/2018 01/19/2019 Overview (11/23/2018): First Trimester: [x] Dating Criteria: 14 wk US [x] Labs: O+/I/-/-, NR [x] Genetic Screening: panorama low risk,fraternal twins male and female 2nd Trimester: [x] Anatomy ultrasound 11/23: A, echogenic focus stomach; B, incomplete face views. Referred to [facility]. 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
--- OUTSIDE RECORDS SUMMARY | 2024-10-09 22:07 | XMS_ITS | Clinical Summary ---
Author Organization [facility] Address [address] [place] [address] Phone Care Team Providers Care Personnel Specialist Name Role Phone Unavailable Primary Care Provider [...] on file Legal Sex Female 7:24 PM DIRECTOR OF CLINICAL TRIALS Gender Identity Not on file Sexual Orientation Not on file Last Filed Vital Signs Vital Sign Reading Time Taken Comments Blood Pressure 108/73 08/05/2014 9:54 AM DIRECTOR OF CLINICAL TRIALS Pulse 94 08/05/2014 9:54 AM DIRECTOR OF CLINICAL TRIALS Temperature 36.6 C (97.8 F) 08/05/2014 9:54 AM DIRECTOR OF CLINICAL TRIALS Respiratory Rate 16 08/05/2014 9:54 AM DIRECTOR OF CLINICAL TRIALS Oxygen Saturation 96% 08/05/2014 9:54 AM DIRECTOR OF CLINICAL TRIALS Inhaled Oxygen Concentration - - Weight 74.8 kg (164 lb 12.8 oz) 08/04/2014 2:48 PM DIRECTOR OF CLINICAL TRIALS Height 165.1 cm (5' 5 ) 08/04/2014 11:0 4 PM DIRECTOR OF CLINICAL TRIALS Body Mass Index 27.42 08/04/2014 2:48 PM DIRECTOR OF CLINICAL TRIALS Plan of Treatment Health Maintenance Due Date [...] this topic Medical Devices Implanted Type Area Framing Mill Operator Device Identifier Shelf Expiration Date Model / Serial / Lot Plate Lctsrb Orbt Lt [id number] - [id number] Implanted:Qty: 1 on 08/04/2014 by Jaye Ragsdale DMD at [facility] Plate Left: Orbital Floor BIOMET MARLON MOCK 04/04/2019 [id number] / / Screw Ht X-Dr Sd 1.5x4mm [id number] - [id number] Implanted:Qty: 1 on 08/04/2014 by Jaye Ragsdale DMD at [facility] Screw Left: Orbital Floor BIOMET RANDYFNILES - PRUDENCE MOCK [id number] / / Description:load 45 jun 27 1 4 Advance Directives For more information, please contact: [phone] * Full Code (Latest Code Status on File) Date Activated Date Inactivated Comments 08/04/2014 7:35 PM 08/05/2014 1:52 PM * Full Code Date Activated Date Inactivated Comments 08/04/2014 2:56 PM 08/04/2014 7:35 PM
--- OUTSIDE RECORDS SUMMARY | 2024-10-09 22:07 | XMS_ITS | Clinical Summary ---
Author Organization [facility] Address [address] [place] [id number] Care Team Providers Care Horseback Excavator Name Role Phone No, Physician Primary Care Provider [phone] Allergies Active Allergy Reactions Criticality Noted Date Comments Clindamycin Rash Medium 08/04/2014 Penicillins Itching,Rash Medium 07/28/2014 Medications PNV [id number] 1-DSS-DHA ORAL Take 1 tablet by mouth 08/06/2018 Active Active Problems Problem Noted Date Diagnosed Date ASCUS with positive high risk HPV cervical 01/19 Resolved Problems Problem Noted Date Diagnosed Date Resolved Date Cervical cerclage suture pre sent in second trimester 12/04/2018 01/19/2019 Overview (12/04/2018): Placed on 12/04/18 with [facility] Dichorionic diamniotic twin 10/12/2018 01/19/2019 Overview (11/23/2018): First Trimester: [x] Dating Criteria: 14 wk US [x] Labs: O+/I/-/-, NR [x] Genetic Screening: panorama low risk,fraternal twins male and female 2nd Trimester: [x] Anatomy ultrasound 11/23: A, echogenic focus stomach; B, incomplete face views. Referred to [facility]. 3rd Trimester: [] CBC, HIV, syphilis [...] stomach; B, incomplete face views. Referred to [facility]. 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
--- OUTSIDE RECORDS SUMMARY | 2024-10-09 22:07 | XMS_ITS | Clinical Summary ---
Author Organization [facility] Address [address] [place] [address] Care Team Providers Care Glassworker Name Role Phone Mattie Blair RN Unavailable [phone] Source Comments [facility],non-owned Affiliates and Associated Physician Practices is amultiple site organization consisting of ambulatory clinics and hospital sitesin [place], [place], [place] and [place]. This disclosure is being madepursuant to the Care Everywhere program and may not contain all information available regarding this patient. Last updated 18.[facility] Allergies Active Allergy Reactions Criticality Noted Date [...] migh t be different from the original. [employer] form completed. Diapers refused 01/04/20 [...] Recorded Patient Health Questionnaire-2 Score 1 12/06/2023 [facility] - Occupational [...] place to sleep or slept in a half-way (including now)? No 12/06/2023 Sex and Gender [...] this topic Medical Devices Implanted Type Area Oil Derrick Operator Device Identifier Shelf Expiration Date Model / Serial / Lot Stent Uret 6fr 24cm Pgtl Crv Tpr Tip Implanted:Qty: 1 on 02/23/2018 by Bhupinder Vora MD at [facility] Right: Ureter Pluck Scimed 06/08/2020 [id number] / / [id number] Procedures Procedure Name Priority Date/Time Associated Diagnosis [...] Diagnosis Comment 10/27/2019 3:07 PM CDT [facility] ([facility]) Comment:NEGATIVE FOR INTRAEP ITHELIAL LESION OR MALIGNANCY. Specimen Adequacy Comment 020 3:07 PM CDT [facility] ([facility]) Comment: Satisfactory for evaluation. Endocervical and/or squamous metaplastic cells (endocervical component) are present. Performed by Comment 10/27/2019 3:07 PM CDT [facility] ([facility]) Comment:Milvia Castellano chnologist (ASCP) Comment . 10/27/2019 3:07 PM CDT [facility] ([facility]) Note Comment 10/27/2019 3:07 PM CDT [facility] ([facility]) Comment: The Pap smear is a screening test designed to aid in the detection of premalignant and malignant conditions of the uterine cervix. It is not a diagnostic procedure and should not be used as the sole means of detecting cervical cancer. Both false-positive and false-negative reports do occur. Note Comment 10/27/2019 3:07 PM CDT [facility] ([facility]) Comment: The HPV DNA reflex criteria were not met with this specimen result therefore, no HPV testing was performed. Pathology/Cytolo gy PART OF UTERINE CERVIX / Unknown Collection / Unknown 10/25/2019 3:52 PM CDT 10/25/2019 3:55 PM CDT Narrative [facility] ([facility]) - 10/27/2019 3:07 PM CDT Performed at: [facility] [id number] Investment Officer: Elizabeth Zhang MD, Phone: [phone] Specimen Comment: Source.............Cervix;Endocervix Specimen Comment: No. of containers..01 ThinPrep Vial Mary Carmen Silverman MD LAB - PATHOLOGY/CYTO LOGY ORDERABLES [facility] ([facility]) [address] [place] [address] * HIV-1 HIV-2 ANTIBODY + HIV P24 AG PANEL (09/22/2019 1:32 PM CDT) HIV1/2 Ab + P24 Ag Non Reactive Non Reactive 09/22/2019 2:26 PM CDT [facility] Blood BLOOD SPECIMEN / Unknown Venipuncture / Unknown 09/22/2019 1:32 PM CDT 09/22/2019 1:39 PM CDT Narrative [facility] - 09/22/2019 2:26 PM CDT No Laboratory evidence of HIV infection. Dunia Frazier MD LAB - CHEMISTRY JOLLY HOWELL [facility] [address] [place] [address] from Last 3 Months or [...] 5:00 PM 11/09/2019 12:13 PM Care Teams Glassworker Relationship Specialty Start Date End Date Mattie Blair, RN Literacy Teacher 02/23/18
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
[2024-10-09 22:10] LABS: Add Urine Microscopic? YES; Appearance Urine Clear (Clear); Bacteria Urine None Seen /hpf; Bilirubin Urine Negative (Negative); Blood Urine Negative (Negative); Color Urine Yellow (Yellow); Glucose Urine UA Negative (Negative); Ketones Urine Negative (Negative); Leukocyte Esterase Ur 1+ LEU/UL (Negative); Nitrate Urine Negative (Negative); Non Pathogenic Casts 0-2; Protein Urine Negative (Negative); RBC Urine 0-2 /hpf (0-2); Specific Grav Ur 1.005 (1.001-1.035); Squamous Epithelial Cell Urine None Seen /hpf (Few); Urobilinogen Urine 0.2 mg/dL (<2.0)
[2024-10-09 22:15] LABS: Acetaminophen < 10 ug/mL (10-30); Ethanol 253 mg/dL (<10); Salicylate < 1.0 mg/dL (2-20)
[2024-10-09 22:16] LABS: Alanine Aminotransferase 20 U/L (6-35); Albumin Level 4.7 g/dL (3.5-5.1); Alkaline Phosphatase 120 U/L (38-126); Anion Gap 18 mmol/L (4-12); Aspartate Amino Transferase 25 U/L (14-36); Bilirubin,Total 0.4 mg/dL (0.2-1.3); Blood Urea Nitrogen 5 mg/dL (7-17); Calcium 9.4 mg/dL (8.4-10.2); Carbon Dioxide 21 mmol/L (22-30); Chloride 109 mmol/L (98-107); Estimated CRCL calculation 109 ml/min; Estimated Glomerular Filt Rate > 60; Glucose 101 mg/dL (65-110); Magnesium 2.2 mg/dL (1.6-2.3); Potassium 3.9 mmol/L (3.4-5.0); Sodium 148 mmol/L (137-145)
[2024-10-09 22:22] LABS: Amphetamine Screen Urine Negative (Negative); Barbiturate Screen Urine Negative (Negative); Benzodiazepines Screen Urine Negative (Negative); Cannabinoid Screen Urine Positive (Negative); Cocaine Screen Urine Positive (Negative); Methadone Screen Urine Negative (Negative); Opiate Screen Urine Negative (Negative); Phencyclidine Screen Urine Negative (Negative)
[2024-10-09 22:30] LABS: Troponin I < 0.012 ng/mL (0.000-0.034)
[2024-10-09 23:16] LABS: Prothrombin Time 13.7 Seconds (11.1-14.7)
[2024-10-09 23:17] LABS: Partial Thromboplastin Time 24.3 Seconds (22.3-36.8)
[2024-10-09] MEDS: HYDROcodone/acetaminophen (*CRX) 5-325 MG TABLET 1 TAB PO (23:24)
[2024-10-09 23:45] VITALS: BP 130/84; PULSE 98; RESP 19; O2SAT 100
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
[2024-10-10] MEDS: SODIUM CHLORIDE 0.9% IV 1,000 ML 999 ML IV CONT ×2 (01:26→01:27)
[2024-10-10 02:06] VITALS: BP 133/79; PULSE 91; RESP 17; O2SAT 99
[2024-10-10] MEDS: KETOROLAC 30 MG/ML VIAL (*BKC) IV PUSH (03:58)
[2024-10-10 04:05] VITALS: BP 140/87; PULSE 86; RESP 18; O2SAT 99
[2024-10-10 04:51] LABS: Anion Gap 8 mmol/L (4-12); Blood Urea Nitrogen 4 mg/dL (7-17); Calcium 7.4 mg/dL (8.4-10.2); Carbon Dioxide 21 mmol/L (22-30); Chloride 112 mmol/L (98-107); Estimated CRCL calculation 117 ml/min; Estimated Glomerular Filt Rate > 60; Ethanol 101 mg/dL (<10); Glucose 89 mg/dL (65-110); Potassium 3.3 mmol/L (3.4-5.0); Sodium 141 mmol/L (137-145)
[2024-10-10 05:19] LABS: Influenza A QL RT-PCR Negative (Negative); Influenza B QL RT-PCR Negative (Negative); RSV RNA, RT-PCR Negative (Negative); SARS-CoV-2 RNA PCR Negative (Negative)
[2024-10-10 06:05] VITALS: BP 131/85; PULSE 86; RESP 15; O2SAT 96
[2024-10-10 08:12] LABS: Ethanol 38 mg/dL (<10)
[2024-10-10 08:42] VITALS: BP 136/78; PULSE 84; RESP 16; O2SAT 99
== END 2024-10-10 08:43 | disposition home or self-care (01) ==
PROVIDERS: Emergency Medicine; Physician Assistant; Emergency Provider Student in an Organized Health Care Education/Training Program
DX: S01.81XA Laceration without foreign body of other part of head, initial encounter (principal); R55 Syncope and collapse; F32.A Depression, unspecified; R45.851 Suicidal ideations; F10.129 Alcohol abuse with intoxication, unspecified; Y90.8 Blood alcohol level of 240 mg/100 ml or more; Z20.822 Contact with and (suspected) exposure to COVID-19; Z86.2 Personal history of diseases of the blood and blood-forming organs and certain disorders involving the immune mechanism; Z87.440 Personal history of urinary (tract) infections; W18.11XA Fall from or off toilet without subsequent striking against object, initial encounter
CPT/HCPCS: 12011; 36415; 70450; 70486; 72125; 80048; 80053; 80143; 80179; 80307; 81001; 82077; 83735; 84443; 84484; 85025; 85610; 85730; 87086; 87637; 93005; 96361; 96374; 99284; A9270; J1885; J7030